=== PATIENT | male | born 1955 | race Caucasian/White ===

== ENCOUNTER 2016-04-19 16:27 | Inpatient (IN) | payer OTHER, MEDICARE ==
[~2016-04-19] VITALS: Ht 172.7 cm; Wt 115.2 kg
[~2016-04-19 16:27] MED LIST: ADVAIR 100-501 EACH INH; ADVAIR DISKU 11 UNIT INH; ALBUTEROL0.63 MG/3 INH/SOL; AMOXIL500 MG PO; ATIVAN 0.5MG T0.5 MG PO; ATIVAN1 MG PO; ATORVASTATIN CA20 MG PO; AUGMENTIN 875 M1 TAB PO; AUGMENTIN 875875 MG PO; AZITHROMYCIN500 M3 PO; CARISOPRODOL250 MG PO; CARISOPRODOL350 MG PO; DIAZEPAM10 MG PO; ESCITALOPRAM20 MG PO; FLOMAX(MONOGRA0.4 MG PO; GABAPENTIN100 MG PO; GUAIFENESIN DM120 ML PO; GUIATUSS DM PO; HYDROXYZINE HCL25 MG PO; IBUPROFEN800 M1 PO; LEVOXYL150 MCG PO; MOTRIN 600 MG600 MG PO; MULTIVITAMIN1 TA1 PO; Mucinex PO; OXYCODONE HCL15 M1 PO; OXYCODONE HCL15 MG PO; OXYCODONE HYDRO15 MG PO; PERCOCET 325 MG1 TAB PO; PREDNISONE 20MG20 MG PO; PREDNISONE10 M2 PO; PREDNISONE10 MG PO; PRILOSEC OTC20 M1 PO; ROXICODONE15 MG PO; ROXICODONE5 MG PO; ROZEREM8 M1 PO; Robitussin Dm PO; SINGULAIR10 MG PO; SPIRIVA1 PUF INH; SPIRIVA18 MCG INH; SYNTHROID0.1 MG PO; SYNTHROID0.15 MG PO; ZITHROMAX250 MG PO
--- NOTE | 2016-04-19 16:33 | NUR ---
Informed waiting has been performed. PT AWARE OF WAIT TIME.
--- NOTE | 2016-04-19 17:58 | NUR ---
PT STATES HE HAS PNEUMONIA ACCORDING TO THE CLINIC. PT WAS TOLD THAT HE NEEDED TO GET TO THE HOSPITAL AND THAT THEY FAXED HIS X-RAY RESULTS. PT IS ON 02 2L VIA HI SAT 93 AT TRIAGE
--- NOTE | 2016-04-19 18:46 | NUR ---
APPRECIATE TRIAGE NOTE. PT AMBULATORY TO ROOM 2. CHANGED INTO HOSPITAL GOWN AND PLACED ON 2L 02 VIA NC. PT NOTED TO BE SOB ON EXERTION.
--- NOTE | 2016-04-19 18:56 | ED DYSPNEA/ASTHMA COMPLAINT ---
History of Present Illness General Chief Complaint: Dyspnea (COPD, CHF, Other) Stated Complaint: SIB URGENT CARE, SOB Source: patient, old records Exam Limitations: no limitations Vital Signs & Intake/Output Vital Signs & Intake/Output Vital Signs Date Time Temp Pulse Resp B/P Pulse O2 O2 Flow FiO2 Ox Delivery Rate 04/19 1917 95 Nasal 2.0L Cannula 04/19 1847 97 Nasal 2.0L Cannula 04/19 1757 97.6 87 20 124/77 93 Nasal 2.0L Cannula Allergies Coded Allergies: No Known Allergies (11/06/15) Reconcile Medications Escitalopram Oxalate 20 MG TABLET 1 TAB PO DAILY DEPRESSION Fluticasone/Vilanterol (Breo Ellipta 100-25 Mcg INH) 100 MCG-25 MCG/DOSE BLST.W.DEV 1 PUFF INH DAILY COPD (Reported) Ibuprofen 800 MG TABLET 1 TAB PO PRN PAIN (Reported) Reason to Stop at ADM: DIFFERETN PAIN PATHWAY Levothyroxine Sodium (Levoxyl) 150 MCG TABLET 1 TAB PO DAILY THYROID ( Reported) Oxycodone HCl 15 MG TABLET 1 TAB PO Q4H PAIN (Reported) Triage Note: PT STATES HE HAS PNEUMONIA ACCORDING TO THE CLINIC. PT WAS TOLD THAT HE NEEDED TO GET TO THE HOSPITAL AND THAT THEY FAXED HIS X-RAY RESULTS. PT IS ON 02 2L VIA [place] SAT 93 AT TRIAGE Triage Nurses Notes Reviewed? yes HPI: Patient is O2 dependent COPD and presents with a 2 day history of productive cough, increasing shortness of breath subjective fevers and chills. Patient denies any chest pain or chest tightness. Positive anorexia but no nausea or vomiting. Positive dyspnea on exertion but no orthopnea. Patient states that his son was recently diagnosed with bronchitis. Patient went to a walk-in center today and they obtained a chest x-ray which showed right lower lobe pneumonia so the patient was sent in for evaluation and admission. Patient also states that both of his legs have been swelling up for the past 3 days. This is new for him. Patient states that both of his legs ache especially when he pushes on them. There is no radiation of the pain and he rates the pain is 4 out of 10. There is no redness. Past History Travel History Traveled to [place] past 21 day No Medical History Any Pertinent Medical History? 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 FATHER (unknown). Hx Contributory? No Review of Systems Review of Systems Constitutional: Reports: see HPI, chills, fever, weakness. EENTM: Reports: no symptoms. Respiratory: Reports: see HPI, cough, short of breath, sputum production, wheezing. Cardiovascular: Reports: no symptoms. GI: Reports: no symptoms. Genitourinary: Reports: no symptoms. Musculoskeletal: Reports: see HPI. Skin: Reports: no symptoms. Neurological/Psychological: Reports: no symptoms. Hematologic/Endocrine: Reports: no symptoms. Immunologic/Allergic: Reports: no symptoms. All Other Systems: Reviewed and Negative Physical Exam Physical Exam General Appearance: well developed/nourished, alert, awake, anxious, moderate distress Head: atraumatic Eyes: Bilateral: PERRL, EOMI. Ears, Nose, Throat: normal pharynx, normal ENT inspection, hearing grossly normal Neck: normal inspection, supple, NO JVD Respiratory: decreased breath sounds, wheezing, respiratory distress Cardiovascular: regular rate/rhythm, normal peripheral pulses Gastrointestinal: normal bowel sounds, soft, non-tender, no organomegaly Extremities: normal inspection, normal capillary refill, normal range of motion, pedal edema Neurologic/Psych: no motor/sensory deficits, awake, alert, oriented x 3, normal mood/affect Skin: intact, normal color, warm/dry Lymphatic: no anterior cervical pretty Comments: Patient becomes very winded with speaking. Core Measures ACS in differential dx? No Severe Sepsis Present: No Septic Shock Present: No Progress Differential Diagnosis: bronchitis, COPD, pulmonary embolism, pneumonia, pneumothorax Plan of Care: Orders Procedure Date/time Status Patient Data 04/19 2103 Active Admit to inpatient 04/19 2034 Active Add-on Test (ER Only) 04/19 2028 Active CULTURE,URINE 04/19 1957 Active Telemetry/Environmental Engineering Intern 04/19 1856 Active BLOOD CULTURE 04/19 1856 Active URINALYSIS 04/19 1856 Complete TROPONIN LEVEL 04/19 1856 Complete COMPREHENSIVE METABOLIC PANEL 04/19 1856 Complete CBC WITHOUT DIFFERENTIAL 04/19 1856 Complete EKG 04/19 1856 Active Laboratory Tests 04/19/161957: Urine Color YEL, Urine Clarity CLEAR, Urine pH 6.0, Ur Specific [place] 1.015, Urine Protein NEG, Urine Ketones NEG, Urine Nitrite NEG, Urine Bilirubin NEG, Urine Urobilinogen 0.2, Ur Leukocyte Esterase TRACE H, Ur Microscopic SEDIMENT EXAMINED, Urine RBC 1-3, Urine WBC 10-15 H, Urine Hemoglobin SMALL H, Urine Glucose NEG 04/19/161934: Anion Gap 9, Estimated GFR > 60, BUN/Creatinine Ratio 14.4, Glucose 97, Calcium 9.2, Total Bilirubin 0.8, AST 26, ALT 30, Alkaline Phosphatase 106, Troponin I < 0.01, Total Protein 7.7, Albumin 4.2, Globulin 3.5, Albumin/Globulin Ratio 1.2, CBC w Diff NO MAN DIFF REQ, RBC 5.20, MCV 87.1, MCH 28.4, RDW 14.1, MPV 7.7, Gran % 67.1, Lymphocytes % 19.0 L, Monocytes % 12.0 H, Eosinophils % 1.4, Basophils % 0.5, Absolute Granulocytes 6.3, Absolute Lymphocytes 1.8, Absolute Monocytes 1.1 H, Absolute Eosinophils 0.1, Absolute Basophils 0, PUBS MCHC 32.6 L Microbiology 04/19 1957 URINE ROUT: Urine Culture - RECD 04/19 1956 BLOOD: Blood Culture - RECD 04/19 1944 BLOOD: Blood Culture - RECD Diagnostic Imaging: Viewed by Me: Radiology Read. Discussed w/RAD: Radiology Read. Radiology Impression: PATIENT: CATALINA DOUGLAS PRESENT AGE: 60 PATIENT ACCOUNT NO: [id number] : 53 LOCATION: [facility] ORDERING PHYSICIAN: FLAVIO DUCKWORTH MD SERVICE DATE: 04/19/16 EXAM TYPE: US - US-EXT BILAT VENOUS DOPPLER EXAMINATION: US TRIPLEX LOWER EXTREMITY, BILATERAL CLINICAL INFORMATION: Bilateral lower extremity edema and pain. Shortness of breath. Coughing for 2 days. COMPARISON: None. TECHNIQUE: Color- flow triplex imaging with spectral analysis and compression Doppler were performed on the bilateral lower extremities. FINDINGS: Respiratory variation, normal compression and augmented flow are noted throughout the bilateral lower extremities. The visualized common femoral vein, superficial femoral vein, profunda femoral vein, popliteal vein and mid calf peroneal and posterior tibial venous segments show no evidence of deep venous thrombosis. There is no Fountain's cyst. IMPRESSION: Normal triplex scan without evidence of deep venous thrombosis involving the bilateral lower extremities. DICTATED BY: RENEE DUBOSE MD DATE/ TIME DICTATED:04/19/162106 JEWEL FLAT SURFACER:COSMO DATE/TIME TRANSCRIBED: 04/19/162106 CONFIDENTIAL, DO NOT COPY WITHOUT APPROPRIATE AUTHORIZATION. < Electronically signed in Other Vendor System> SIGNED BY: RENEE DUBOSE MD 2114 CXR Impression: PATIENT: CATALINA DOUGLAS PRESENT AGE: 60 PATIENT ACCOUNT NO: [id number] : 53 LOCATION: [facility] ORDERING PHYSICIAN: FLAVIO DUCKWORTH MD SERVICE DATE: 04/19/16 EXAM TYPE: RAD - XRY- PORTABLE CHEST XRAY EXAMINATION: XR PORTABLE CHEST CLINICAL INFORMATION: Pneumonia COMPARISON: Multiple prior chest x-rays most recent prior dated 2015 TECHNIQUE: Portable view of the chest was obtained. FINDINGS: Mild cardiomegaly. Low lung volumes with mild elevation of the diaphragms, right slightly greater than left. Streaky hazy opacities noted in bilateral bases suspicious for bibasilar infiltrates. Trace bilateral pleural effusion. Bony thorax is intact. IMPRESSION: Hazy streaky infiltrates or bibasilar pneumonia suspected in the proper clinical setting. DICTATED BY: RITU GARCIA MD DATE/ TIME DICTATED:04/19/161916 JEWEL FLAT SURFACER:COSMO DATE/TIME TRANSCRIBED: 04/19/161916 CONFIDENTIAL, DO NOT COPY WITHOUT APPROPRIATE AUTHORIZATION. < Electronically signed in Other Vendor System> SIGNED BY: RITU GARCIA MD 04/19/161921 Initial ED EKG: NSR, nonspecific ST T wave chg Prior EKG: unchanged Rhythm Strip: normal sinus rhythm Departure Departure Disposition: STILL A PATIENT Condition: Guarded Clinical Impression Primary Impression: Pneumonia Referrals: ADNRE MÉNDEZ,SHANNON Bolanos (PCP/Family) Departure Forms: Customer Survey General Discharge Information Admission Note Spoke With: RUSTAM RÍOS MD Documentation of Exam: Documentation of any treatments & extenuating circumstances including Concerns Regarding Discharge (functional status, medication knowledge or non-compliance, living conditions, etc.) that warrant an admission rather than observation: [IV ABX, IV STEROIDS, PULM CONSULT] Critical Care Note Critical Care Note Critical Care Time: non-applicable
--- NOTE | 2016-04-19 19:22 | RADIOLOGY REPORT ---
EXAMINATION: XR PORTABLE CHEST CLINICAL INFORMATION: Pneumonia COMPARISON: Multiple prior chest x-rays most recent prior dated 12/20/2015 TECHNIQUE: Portable view of the chest was obtained. FINDINGS: Mild cardiomegaly. Low lung volumes with mild elevation of the diaphragms, right slightly greater than left. Streaky hazy opacities noted in bilateral bases suspicious for bibasilar infiltrates. Trace bilateral pleural effusion. Bony thorax is intact. IMPRESSION: Hazy streaky infiltrates or bibasilar pneumonia suspected in the proper clinical setting.
[2016-04-19 19:52] LABS: ABSOLUTE BASOPHIL COUNT 0 /CUMM (0.0-0.2); ABSOLUTE EOSINOPHIL COUNT 0.1 /CUMM (0.0-0.7); ABSOLUTE GRANULOCYTE CT 6.3 /CUMM (1.4-6.5); ABSOLUTE LYMPH COUNT 1.8 /CUMM (1.2-3.4); ABSOLUTE MONOCYTE COUNT 1.1 /CUMM (0.10-0.60); BASOPHIL % 0.5 % (0.0-2.0); EOSINOPHIL % 1.4 % (0-5); GRANULOCYTE % 67.1 % (42.2-75.2); HEMATOCRIT 45.3 % (42-52); MEAN CORPUSCULAR HGB 28.4 PG (27.0-31.0); MEAN CORPUSCULAR HGB CONC 32.6 G/DL (33.0-37.0); MEAN CORPUSCULAR VOLUME 87.1 FL (80.0-94.0); MEAN PLATELET VOLUME 7.7 FL (7.4-10.4); PLATELET COUNT 256 /CUMM (130-400); RBC DISTRIBUTION WIDTH 14.1 % (11.5-14.5); WHITE BLOOD CELL COUNT 9.3 /CUMM (4.8-10.8)
--- NOTE | 2016-04-19 20:05 | NUR ---
LABS AND 2 SETS OF BLOOD CULTURES DRAWN AND SENT 2 SST, 2 LAV, BLUE AND REID SENT
[2016-04-19] MEDS ORDERED: BREO ELLIPTA 11 EACH INH (20:20)
--- NOTE | 2016-04-19 20:29 | NUR ---
PT TO US VIA STRETCHER.
--- NOTE | 2016-04-19 21:11 | History & Physical ---
DILAN CORDERO MD 04/19/162110: General Information and HPI MD Statement: I have seen and personally examined CATALINA DOUGLAS and documented this H&P. The patient is a 60 year old M who presented with a patient stated chief complaint of [increased shortness of breath]. Source of Information: patient Exam Limitations: no limitations History of Present Illness: 60-year-old male with PMH COPD on 2L O2, hypothyroidism, CAROLE not on CPAP, chronic pain on oxycodone, was sent in by urgent care for pneumonia on CXR. Over the last 2 days, he has had increased shortness of breath, requiring up to 5L oxygen without significant relief. He has had cough productive of thick light green sputum, and has some chest pain associated with cough. He usually uses his neb max twice a day, but over the past 2 days, had used it 4 times a day. He also reports bilateral leg swelling, and soreness, the left worse than right, which he usually gets when gets sick. His son was recently diagnosed with bronchitis. He was discharged to pulmonary rehab back in Nov 2015, and had done well up till now. His temp was 100 at home, with some chills, nasal congestion, headache, and nausea. Allergies/Medications Allergies: Coded Allergies: No Known Allergies (11/06/15) Home Med list Escitalopram Oxalate 20 MG TABLET 1 TAB PO DAILY DEPRESSION Fluticasone/Vilanterol (Breo Ellipta 100-25 Mcg INH) 100 MCG-25 MCG/DOSE BLST.W.DEV 1 PUFF INH DAILY COPD (Reported) Ibuprofen 800 MG TABLET 1 TAB PO PRN PAIN (Reported) Reason to Stop at ADM: DIFFERETN PAIN PATHWAY Levothyroxine Sodium (Levoxyl) 150 MCG TABLET 1 TAB PO DAILY THYROID ( Reported) Oxycodone HCl 15 MG TABLET 1 TAB PO Q4H PAIN (Reported) Past History Travel History Traveled to [place] past 21 day No Medical History Neurological: NONE EENT: NONE Cardiovascular: hyperlipidemia Respiratory: COPD, emphysema, obstructive sleep apnea Gastrointestinal: NONE Hepatic: NONE Renal: NONE Musculoskeletal: chronic back pain, osteoarthritis Psychiatric: anxiety, depression Endocrine: hypothyroidism, GRAVES DX s/p irradiation Blood Disorders: NONE Cancer(s): 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 FATHER (unknown). Psychosocial History Where do you live? Home Who Do You Live With? spouse, child Services at Home: None Primary Language: Vietnamese ETOH Use: denies use Illicit Drug Use: denies illicit drug use Functional Ability ADLs Independent: dressing, eating, toileting, bathing. Ambulation: independent IADLs Independent: finances, telephone, transportation, medication admin. Review of Systems Review of Systems Constitutional: Reports: chills, fever. EENTM: Reports: see HPI, nasal congestion. Cardiovascular: Reports: chest pain, peripheral edema. Respiratory: Reports: cough, short of breath, sputum production, wheezing. Denies: hemoptysis. GI: Reports: nausea. Denies: abdominal pain, bloating, constipation, diarrhea, vomiting. Genitourinary: Denies: dysuria. Musculoskeletal: Reports: joint pain. Exam & Diagnostic Data Last 24 Hrs of Vital Signs/I&O Vital Signs Date Time Temp Pulse Resp B/P Pulse O2 O2 Flow FiO2 Ox Delivery Rate 04/19 2342 98.0 96 19 128/72 93 Nasal 2.0L Cannula 04/19 2324 Nasal 2.0L Cannula 04/19 2120 98.0 97 20 123/74 95 Nasal 2.0L Cannula 04/19 1918 95 Nasal 2.0L Cannula 04/19 1848 97 Nasal 2.0L Cannula 04/19 1758 97.6 87 20 124/77 93 Nasal 2.0L Cannula Intake & Output 04/20 0800 04/20 0000 04/19 1600 Intake Total Output Total Balance Patient 115.212 kg Weight Physical Exam General Appearance Alert, Oriented X3, Cooperative, noticably short of breath talking Skin No Significant Lesion HEENT Atraumatic, PERRLA, EOMI, Mucous Membr. moist/pink, mild tenderness over frontal and maxillary sinuses Neck Supple, No JVD, +2 Carotid Pulse wo Bruit, No LAD Lymphatic Axillary nl, Cervical nl Cardiovascular Regular Rate, Normal S1, Normal S2, No Murmurs, Gallops, Rubs Lungs diffuse exp wheezes Abdomen Normal Bowel Sounds, Soft, No Tenderness Neurological Normal Speech Extremities trace pedal edema Last 24 Hrs of Labs/Miko: Laboratory Tests 01/17/17 0100: Troponin I Pending 04/19/161957: Urine Color YEL, Urine Clarity CLEAR, Urine pH 6.0, Ur Specific [place] 1.015, Urine Protein NEG, Urine Ketones NEG, Urine Nitrite NEG, Urine Bilirubin NEG, Urine Urobilinogen 0.2, Ur Leukocyte Esterase TRACE H, Ur Microscopic SEDIMENT EXAMINED, Urine RBC 1-3, Urine WBC 10-15 H, Urine Hemoglobin SMALL H, Urine Glucose NEG 04/19/161934: Anion Gap 9, Estimated GFR > 60, BUN/Creatinine Ratio 14.4, Glucose 97, Calcium 9.2, Total Bilirubin 0.8, AST 26, ALT 30, Alkaline Phosphatase 106, Troponin I < 0.01, Total Protein 7.7, Albumin 4.2, Globulin 3.5, Albumin/Globulin Ratio 1.2, CBC w Diff NO MAN DIFF REQ, RBC 5.20, MCV 87.1, MCH 28.4, RDW 14.1, MPV 7.7, Gran % 67.1, Lymphocytes % 19.0 L, Monocytes % 12.0 H, Eosinophils % 1.4, Basophils % 0.5, Absolute Granulocytes 6.3, Absolute Lymphocytes 1.8, Absolute Monocytes 1.1 H, Absolute Eosinophils 0.1, Absolute Basophils 0, PUBS MCHC 32.6 L Microbiology 04/20 99 URINE ROUT: Legionella Antigen - RECD 04/20 99 URINE ROUT: Streptococcus pneumoniae Antigen (M - RECD 04/19 2349 LOWER RESP: Respiratory Culture - ORD 04/19 2349 LOWER RESP: Gram Stain - ORD 04/19 1957 URINE ROUT: Urine Culture - RECD 04/19 1956 BLOOD: Blood Culture - RECD 04/19 1944 BLOOD: Blood Culture - RECD Diagnostic Data CXR Results IMPRESSION: Hazy streaky infiltrates or bibasilar pneumonia suspected in the proper clinical setting. Other Results Venous doppler IMPRESSION: Normal triplex scan without evidence of deep venous thrombosis involving the bilateral lower extremities. DICTATED BY: RENEE DUBOSE MD DATE/TIME DICTATED:04/19/162106 Assessment/Plan Assessment: 60-year-old male with PMH COPD on 2L O2, hypothyroidism, CAROLE not on CPAP, chronic pain on oxycodone, was sent in by urgent care for pneumonia on CXR. # Pneumonia/COPD exacerbation - Given 1 time ceftriaxone and azithromycin in ED - Given 1 time 125 mg solumedrol in ED * Continue ceftriaxone and azithromycin * Solumedrol 40 q6 * Follow BCX2, sputum culture, gram stain, urine legionella, strep pneumo * TRC/neb * Consult with Dr. Watts in am * Mucinex bid * Symbicort * 2nd set of trop and ekg 1am * f/u rapid flu # Abnormal UA with trace LE, 10-15WBC, small hb * Follow UC # Chronic pain * Continue roxicodone 15 mg q4 # Depression * Continue lexapro 20 mg # Hypothyroidism * Continue levothyroxine 150 mcg Diet: heart healthy DVT ppx: mech and pharm (lovenox) FULL CODE As Ranked By This Provider Problem List: 1. Pneumonia Core Measures/Miscellaneous Acute Coronary Syndrome ACS Diagnosis: No Cerebrovascular Accident CVA/TIA Diagnosis: No Congestive Heart Failure CHF Diagnosis: No Venous Thromboembolism VTE Risk Factors: Acute medical illness, Age > 40 VTE Prophylaxis Ordered Inpt: Mech & Pharm No Mech VTE prophylaxis d/t: No contraindications No VTE Pharm Prophylaxis d/t: No contraindications VTE Diagnosis: No VTE Type: NONE VTE Confirmed by (Test): DUPLEX SCAN LOWER EXT Severe Sepsis Severe Sepsis Present: No Septic Shock Septic Shock Present: No Miscellaneous Documentation Attending Case Discussed With: RUSTAM RÍOS MD Primary Care Physician: SHANNON POWELL MD Patient sees these Specialists 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 Was sent in by urgent care for pneumonia on CXR. Patient stated that he had greenish productive cough with shortness of breath for the past 2 days that ASSOCIATED with some chest discomfort, after he had a sick contact with his son, he stated that his son was diagnosed with bronchitis. Patient reports feeling feverish, chills, also he reports lower extremity edema. Patient deny any palpitation, abdominal pain, constipation, diarrhea, vomiting. Physical examination, lab and imaging is as above. Problem list: -Community-acquired pneumonia -COPD exacerbation -Asymptomatic bacteriuria -Lower extremity edema Plan: -Admit patient to general medicine floor -Vital every shift, I and O's -Start patient IV Solu-Medrol 40 mg every 6 -Continue IV ceftriaxone and azithromycin -Blood, urine, and sputum culture, strep and Legionella urine antigen. -1 set of troponin and EKG -TRC nebs as needed, continue home medication of Symbicort equivalent. -Pulmonology consultation a.m. -Repeat CBC and basic electrolyte in the morning -Continue home medication. -Heart healthy diet -Pain pathway -DVT prophylaxis: Subcutaneous Lovenox -Full code KHUSHBU MÉNDEZ, [facility] 04/20/16 0420: Attending MD Review Statement Attending Statement Attending MD Statement: examined this patient, discuss w/resident/PA/BUS SYSTEM OPERATOR, agreed w/resident/PA/BUS SYSTEM OPERATOR Attending Assessment/Plan: 60 yo morbidly obese M, ex-smoker with h/o COPD on 2L O2, CAROLE not using CPAP, multiple admits in 2016 for COPDE, CBP on opiates, Graves s/p RI ablation with subsequent hypothyroidism, is here for 2-day h/o dyspnea on exertion, chills, cough productive of green phlegm and chest discomfort on coughing. No relief with nebs/ inhalers and increased O2 requirement. Sick contact son with bronchitis. Patient was seen at a Walk in clinic today, CXR done showed RLL pneumonia hence he was sent to ER for eval. VSS. Chest: reduced air entry, with scattered expiratory wheeze. Labs: unremarkable. EKG: SR, nonspecific T-wave changes. CXR: hazy streaky infiltrates or bibasilar pneumonia. LE dopplers no DVT. Echo (2016): EF > 70%, elevated RVSP. 1. Acute on chronic hypoxic respiratory failure 2/2 CAP with COPDE. TRC nebs, check flu swab, panculture, IV ceftriaxone, azithro and steroids, Pulm consult. Serial EKG and troponin to rule out ACS. Add mucinex. 2. Chronic pain. Continue oxycodone. DVT ppx Lovenox. Full code.
--- NOTE | 2016-04-19 21:15 | ULTRASOUND REPORT ---
EXAMINATION: US TRIPLEX LOWER EXTREMITY, BILATERAL CLINICAL INFORMATION: Bilateral lower extremity edema and pain. Shortness of breath. Coughing for 2 days. COMPARISON: None. TECHNIQUE: Color-flow triplex imaging with spectral analysis and compression Doppler were performed on the bilateral lower extremities. FINDINGS: Respiratory variation, normal compression and augmented flow are noted throughout the bilateral lower extremities. The visualized common femoral vein, superficial femoral vein, profunda femoral vein, popliteal vein and mid calf peroneal and posterior tibial venous segments show no evidence of deep venous thrombosis. There is no Fountain's cyst. IMPRESSION: Normal triplex scan without evidence of deep venous thrombosis involving the bilateral lower extremities.
--- NOTE | 2016-04-19 22:06 | NUR ---
PT ASSIGNED TO ROOM 203-1
--- NOTE | 2016-04-19 22:32 | NUR ---
REPORT GIVEN TO NO RUSHING. [facility]RI[facility]ION CALLED FOR PT TRANSPORT.
[2016-04-19 23:42] VITALS: BP 128/72
--- NOTE | 2016-04-20 01:37 | NUR ---
NURSE NOTE(LATE ENTRY): PT ARRIVED 2244 VIA TRANSPORT FROM ED. REPORT RECIEVED FROM BALBINA IN ED. PT IS AAOX3, 2LNC BASELINE @ HOME. COMPLAINING OF PAIN IN FEET/BACK R/T OA. PAGED AND MEDICATED WITH OXYCODONE. PT IS SOB ON EXERTION, NO SIGNS OF DISTRESS. VITALS: 128/72, 98.0 TEMP, 96 PULSE, 19 RESP, AND 93% ON 2LNC. PT IS INDEPENDENT OOB, IV ACCESS. PT ORIENTATED TO ROOM. CALL TUCKER IN REACH, BED IN LOWEST POSITION.
--- NOTE | 2016-04-20 04:08 | Admission Certification ---
Admission Certification Certification Statement - As attending physician, I certify that at the time of - admission, based on clinical presentation, severity of - symptoms, need for further diagnostic testing and - therapeutic interventions, and risk of adverse outcomes - without in-hospital treatment, in my clinical assessment, - this patient requires an acute hospital stay for a minimum - of two nights or longer. I have also considered psychsocial - factors such as support system, advanced age, financial - issues, cognitive issues, and failed out-patient treatments, - past re-admission history, safety of patient, and lack of - compliance as applicable. Specific rationale supporting this admission is: Acute on chronic hypoxic respiratory failure 2/2 CAP and COPDE.
[2016-04-20 06:59] VITALS: BP 124/62
--- NOTE | 2016-04-20 07:35 | PN- Housestaff ---
See Addendum Subjective Follow-up For: CAP COPD exacerbation Asymptomatic bacteriuria Lower extremity edema Chronic pain Subjective: Patient seen and examined at bedside this AM. He continues to endorse dyspnea but feels better since admission. He denies fever or chills currently and his pain is well controlled on current regimen. Patient reports he will have his bring in his BREO as prescribed by Dr. Watts and is amenable to the discontinuation of symbicort. Review of Systems Constitutional: Denies: chills, diaphoresis, fever. EENTM: Denies: blurred vision, visual changes, hearing changes, throat pain, mouth pain. Cardiovascular: Reports: peripheral edema (LLE, chronic). Denies: chest pain, palpitations. Respiratory: Reports: cough, short of breath, sputum production (Mild, light yellow/white), wheezing. Denies: hemoptysis. Gastrointestinal: Denies: abdominal pain, bloating, constipation. Genitourinary: Denies: discharge, dysuria, frequency, hesitation, pain. Musculoskeletal: Reports: back pain (Chronic back pain). Skin: Denies: lesions. Neurological/Psychological: Denies: confusion, headache. Hematologic/Endocrine: Denies: bruising, bleeding. Immunologic/Allergic: Denies: splenectomy. Objective Last 24 Hrs of Vital Signs/I&O Vital Signs Date Time Temp Pulse Resp B/P Pulse O2 O2 Flow FiO2 Ox Delivery Rate 04/20 1122 Nasal 2.0L Cannula 04/20 0659 97.7 105 18 124/62 91 Nasal 2.0L Cannula 04/19 2342 98.0 96 19 128/72 93 Nasal 2.0L Cannula 04/19 2324 Nasal 2.0L Cannula 04/19 2120 98.0 97 20 123/74 95 Nasal 2.0L Cannula 04/19 1918 95 Nasal 2.0L Cannula 04/19 1848 97 Nasal 2.0L Cannula 04/19 1758 97.6 87 20 124/77 93 Nasal 2.0L Cannula Intake & Output 04/20 1600 04/20 0800 04/20 0000 Intake Total 500 Output Total Balance 500 Intake, IV 20 Intake, Oral 480 Patient 254 lb Weight Physical Exam General Appearance: Alert, Oriented X3, Cooperative Skin: No Significant Lesion HEENT: Atraumatic, PERRLA, EOMI, Mucous Membr. moist/pink Neck: Supple, No JVD, No LAD Lymphatic: Cervical nl Cardiovascular: Normal S1, Normal S2 Lungs: Normal Air Movement, Expiratory wheezing appreciated bilaterally, decreased breath sounds at the bases Abdomen: Soft, No Tenderness Neurological: Normal Speech, Normal Tone Extremities: Left lower extremity edema for which patient reports is chronic. Current Medications: Current Medications Sig/Leon Start time Last Medication Dose Route Stop Time Status Admin Acetaminophen 650 MG Q6P PRN 04/19 2245 AC 04/20 PO 1238 Albuterol Sulfate 3 ML BID 04/20 2199 AC INH Albuterol Sulfate 3 ML ONCE ONE 04/19 190 DC 04/19 INH 04/19 1900 191 Alprazolam 0.5 MG ONCE ONE 04/20 0245 DC 04/20 PO 04/20 024 0256 Azithromycin 500 MG 04/20 AC Dextrose/Water 250 ML IV Azithromycin 500 MG ONCE ONE 04/19 1899 DC 04/19 Dextrose/Water 250 ML IV 04/19 Budesonide/ 2 PUF BID 04/20 1000 DC 04/20 Formoterol Fumarate INH 08 Ceftriaxone Sodium 1,000 MG 04/20 AC IV Ceftriaxone Sodium 0 .STK-MED ONE 04/19 194 DC .ROUTE Ceftriaxone Sodium 1,000 MG ONCE ONE 04/19 190 DC 04/19 IV 04/19 Enoxaparin Sodium 40 MG DAILY 04/20 1000 AC 04/20 SC 0822 Escitalopram Oxalate 10 MG DAILY 04/20 1000 DC PO Escitalopram Oxalate 20 MG DAILY 04/20 1000 AC 04/20 PO 0821 Escitalopram Oxalate 20 MG ONCE ONE 04/19 2330 DC 04/20 PO 04/19 2331 0043 Guaifenesin 600 MG Q12 04/20 0137 AC 04/20 PO 0821 Ibuprofen 600 MG Q6P PRN 04/19 2245 DC PO Ipratropium [place] 2.5 ML ONCE ONE 04/19 190 DC 04/19 INH 04/19 190 191 Levothyroxine Sodium 0.15 MG DAILY AC 04/20 0700 AC 04/20 PO 0524 Melatonin 5 MG ONCE ONE 04/20 0100 DC 04/20 PO 04/20 0101 0106 Methylprednisolone 40 MG Q12 04/20 2200 AC IV Methylprednisolone 40 MG Q6 04/20 0600 DC 04/20 IV 1238 Methylprednisolone 0 .STK-MED ONE 04/19 1950 DC .ROUTE Methylprednisolone 125 MG ONCE ONE 04/19 1899 DC 04/19 IV 04/19 Non-Formulary 0 SEE ADMIN CRITERIA 04/20 1345 AC Medication ANY Oxycodone HCl 15 MG Q4 HRS NEEDED PRN 04/19 2345 AC 04/20 PO 0822 Oxycodone HCl 15 MG Q4-6 PRN PRN 04/19 2330 CAN PO Last 24 Hrs of Lab/Miko Results Last 24 Hrs of Labs/Mics: Laboratory Tests 04/20/16 0858: Anion Gap 11, Estimated GFR > 60, BUN/Creatinine Ratio 17.8 04/20/16 0605: CBC w Diff NO MAN DIFF REQ, RBC 4.94, MCV 87.9, MCH 29.0, RDW 13.9, MPV 8.5, Gran % 88.8 H, Lymphocytes % 10.7 L, Monocytes % 0.5 L, Eosinophils % 0, Basophils % 0 L, Absolute Granulocytes 5.2, Absolute Lymphocytes 0.6 L, Absolute Monocytes 0 L, Absolute Eosinophils 0, Absolute Basophils 0, PUBS MCHC 32.9 L 04/20/16 0100: Troponin I < 0.01 04/19/161957: Urine Color YEL, Urine Clarity CLEAR, Urine pH 6.0, Ur Specific [place] 1.015, Urine Protein NEG, Urine Ketones NEG, Urine Nitrite NEG, Urine Bilirubin NEG, Urine Urobilinogen 0.2, Ur Leukocyte Esterase TRACE H, Ur Microscopic SEDIMENT EXAMINED, Urine RBC 1-3, Urine WBC 10-15 H, Urine Hemoglobin SMALL H, Urine Glucose NEG 04/19/16 193: Anion Gap 9, Estimated GFR > 60, BUN/Creatinine Ratio 14.4, Glucose 97, Calcium 9.2, Total Bilirubin 0.8, AST 26, ALT 30, Alkaline Phosphatase 106, Troponin I < 0.01, Total Protein 7.7, Albumin 4.2, Globulin 3.5, Albumin/Globulin Ratio 1.2, CBC w Diff NO MAN DIFF REQ, RBC 5.20, MCV 87.1, MCH 28.4, RDW 14.1, MPV 7.7, Gran % 67.1, Lymphocytes % 19.0 L, Monocytes % 12.0 H, Eosinophils % 1.4, Basophils % 0.5, Absolute Granulocytes 6.3, Absolute Lymphocytes 1.8, Absolute Monocytes 1.1 H, Absolute Eosinophils 0.1, Absolute Basophils 0, PUBS MCHC 32.6 L Microbiology 04/20 1300 LOWER RESP: Respiratory Culture - RECD 04/20 1300 LOWER RESP: Gram Stain - RECD 04/20 99 URINE ROUT: Legionella Antigen - COMP 04/20 99 URINE ROUT: Streptococcus pneumoniae Antigen (M - COMP 04/19 1957 URINE ROUT: Urine Culture - RES 04/19 1956 BLOOD: Blood Culture - RES 04/19 1944 BLOOD: Blood Culture - RES Orders Radiology Findings: CXR: IMPRESSION: Hazy streaky infiltrates or bibasilar pneumonia suspected in the proper clinical setting. Miscellaneous Findings: Venous Doppler: IMPRESSION: Normal triplex scan without evidence of deep venous thrombosis involving the bilateral lower extremities. Assessment/Plan Assessment: Mr. Thomas is a pleasant 60 year old male with significant PMH of COPD on 2 L home O2 followed by Dr. Watts, CAROLE not on CPAP, graves disease s/p irradiation with resultant hypothyroidism, chronic back pain on oxycodone, HTN and anxiety who presents with increasing shortness of breath and increased O2 requirements from 2L to 5L as his O2 saturation dropped to 89%. Associated symptoms include increased yellow sputum production, cough with occasional chest discomfort, nasal congestion, occasional headache and nausea. In the ED: Vital signs showed T 97.6, HR 87, RR 20, BP 124/77 and 93% on 2 L NC. CXR was done and showed hazy streaky infiltrates or bibasilar PNA. EKG showed normal sinus rhythm with non specific ST/T wave changes, unchanged from prior. CBC was WNL (specifically WBC 9.3) and BEP showed Na 136, Cl 97 with no other abnormalities. Troponins negative x 2. Patient was admitted to the general medicine floor and the following is the management: 1. Community acquired PNA/ COPD exacerbation/ Chronic respiratory failure * Patient maintained on 2 L O2 via NC currently, increase as needed to maintain sats >92% * TRC nebs as needed * Continue IV ceftraixone and azithromycin, await panculture results (LRC, blood cultures, urine cultures) * Legionella and strep urinary antigens negative * Consult with Dr. Watts placed and appreciated, who suggested discontinuing symbicort and starting BREO (home medication which patient's is bringing in today) * IV solumedrol decreased to 40 mg IV Q12, while on steroids monitor gluocse with FSGs TIDAC/HS * Flu swab negative * Mucinex for congestion * ACS ruled out with troponins negative x 2 * Patient declines PAP for CAROLE 2. Abnormal US * UA noted to have trace leuk esterase, 10-15 WBC, small Hgb * Follow up urine culture, no growth to date * Patient remains asymptomatic 3. Chronic low back pain * Continue roxicodone 15 mg q4PRN for severe pain * Ibuprofen 600 mg Q6P for moderate pain, tylenol for mild pain 4. Depression * Continue lexapro 20 mg PO daily * Patient not actively suicidal/homical with appropriate mood 5. Hypothyroidism * Continue 0.15 mg PO daily synthroid FULL CODE DVTP: Lovenox Heart Healthy Diet Chronic pain pathways Problem List: 1. DVT prophylaxis 2. COPD exacerbation 3. Chronic back pain 4. Hypothyroidism 5. Pneumonia Pain Ratin Pain Location: Chronic back pain. Pain Goal: Pain 4 or less Pain Plan: Tylenol for mild pain, Roxicodone for severe pain. Tomorrow's Labs & Rationales: CBC (monitor WBC).
[2016-04-20 07:59] LABS: ABSOLUTE BASOPHIL COUNT 0 /CUMM (0.0-0.2); ABSOLUTE EOSINOPHIL COUNT 0 /CUMM (0.0-0.7); ABSOLUTE GRANULOCYTE CT 5.2 /CUMM (1.4-6.5); ABSOLUTE LYMPH COUNT 0.6 /CUMM (1.2-3.4); ABSOLUTE MONOCYTE COUNT 0 /CUMM (0.10-0.60); BASOPHIL % 0 % (0.0-2.0); EOSINOPHIL % 0 % (0-5); GRANULOCYTE % 88.8 % (42.2-75.2); HEMATOCRIT 43.4 % (42-52); MEAN CORPUSCULAR HGB CONC 32.9 G/DL (33.0-37.0); MEAN CORPUSCULAR VOLUME 87.9 FL (80.0-94.0); MEAN PLATELET VOLUME 8.5 FL (7.4-10.4); PLATELET COUNT 256 /CUMM (130-400); RBC DISTRIBUTION WIDTH 13.9 % (11.5-14.5); RED BLOOD CELL CT 4.94 /CUMM (4.70-6.10)
[2016-04-20 09:33] LABS: WHITE BLOOD CELL COUNT 5.9 /CUMM (4.8-10.8)
--- NOTE | 2016-04-20 12:12 | Cons- Pulmonary ---
General Information and HPI Consulting Request Date of Consult: 04/20/16 Requested By: Dr. Mathews Reason for Consult: copd exacerbaiton, possible cap Source of Information: patient Exam Limitations: no limitations History of Present Illness: 60 year old man. Consultation requested for COPD/CAROLE and possible CAP. Significant PMH graves disease, s/p irradiation with subsequent hypothyroidism, HTN, OA with chronic back pain, HTN, anxiety and COPD on BREO with rinsing of the mouth. Former smoker, 30 pack years; quit 20 years ago. He uses 2 L of oxygen via nasal cannula at home. Dx with CAROLE, however declines to use CPAP understanding the cardiovascular risk factors. CXR - Hazy streaky infiltrates or bibasilar pneumonia suspected in the proper clinical setting. Fevers/Chills at home. Currently afebrile, no leukocytosis, at baseline 2LNC. Feels better since admisison. Maintained on ceftriaxone/zithromax, minimal phlegm. On Solumedrol 40mg iv q6h Allergies/Medications Allergies: Coded Allergies: No Known Allergies (11/06/15) Home Med List: Escitalopram Oxalate 20 MG TABLET 1 TAB PO DAILY DEPRESSION Fluticasone/Vilanterol (Breo Ellipta 100-25 Mcg INH) 100 MCG-25 MCG/DOSE BLST.W.DEV 1 PUFF INH DAILY COPD (Reported) Ibuprofen 800 MG TABLET 1 TAB PO PRN PAIN (Reported) Reason to Stop at ADM: DIFFERETN PAIN PATHWAY Levothyroxine Sodium (Levoxyl) 150 MCG TABLET 1 TAB PO DAILY THYROID ( Reported) Oxycodone HCl 15 MG TABLET 1 TAB PO Q4H PAIN (Reported) Current Medications: Current Medications Sig/Leon Start time Last Medication Dose Route Stop Time Status Admin Acetaminophen 650 MG Q6P PRN 04/19 2245 AC PO Albuterol Sulfate 3 ML BID 04/20 2200 AC INH Albuterol Sulfate 3 ML ONCE ONE 04/19 1900 DC 04/19 INH 04/19 190 1910 Alprazolam 0.5 MG ONCE ONE 04/20 0245 DC 04/20 PO 04/20 0246 0256 Azithromycin 500 MG 2000 04/20 1999 AC Dextrose/Water 250 ML IV Azithromycin 500 MG ONCE ONE 04/19 1900 DC 04/19 Dextrose/Water 250 ML IV 04/19 Budesonide/ 2 PUF BID 04/20 1000 AC 04/20 Formoterol Fumarate INH 08 Ceftriaxone Sodium 1,000 MG 2000 04/20 2000 AC IV Ceftriaxone Sodium 0 .STK-MED ONE 04/19 1949 DC .ROUTE Ceftriaxone Sodium 1,000 MG ONCE ONE 04/19 1900 DC 04/19 IV 04/19 190 2002 Enoxaparin Sodium 40 MG DAILY 04/20 1000 AC 04/20 SC 0822 Escitalopram Oxalate 10 MG DAILY 04/20 1000 DC PO Escitalopram Oxalate 20 MG DAILY 04/20 1000 AC 04/20 PO 0821 Escitalopram Oxalate 20 MG ONCE ONE 04/19 2330 DC 04/20 PO 04/19 2331 0043 Guaifenesin 600 MG Q12 04/20 0137 AC 04/20 PO 0821 Ibuprofen 600 MG Q6P PRN 04/19 2245 DC PO Ipratropium [place] 2.5 ML ONCE ONE 04/19 1900 DC 04/19 INH 04/19 1901 1910 Levothyroxine Sodium 0.15 MG DAILY AC 04/20 0700 AC 04/20 PO 0524 Melatonin 5 MG ONCE ONE 04/20 0100 DC 04/20 PO 04/20 0101 0106 Methylprednisolone 40 MG Q6 04/20 0600 AC 04/20 IV 0524 Methylprednisolone 0 .STK-MED ONE 04/19 1950 DC .ROUTE Methylprednisolone 125 MG ONCE ONE 04/19 1900 DC 04/19 IV 04/19 1900 2002 Oxycodone HCl 15 MG Q4 HRS NEEDED PRN 04/19 2345 AC 04/20 PO 0822 Oxycodone HCl 15 MG Q4-6 PRN PRN 04/19 2330 CAN PO Review of Systems Comments 18 point Review of Systems performed. Positive and negative pertinent findings are deliniated in the HPI. Otherwise the ROS is negative. 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 FATHER (unknown). Psychosocial History Where Do You Live? Home Who Do You Live With? spouse, child Services at Home: None Primary Language: [place] Smoking Status: Former Smoker ETOH Use: denies use Illicit Drug Use: denies illicit drug use Functional Ability ADLs Independent: dressing, eating, toileting, bathing. Ambulation: independent IADLs Independent: finances, telephone, transportation, medication admin. Exam & Diagnostic Data Last 24 Hrs of Vital Signs/I&O Vital Signs Date Time Temp Pulse Resp B/P Pulse O2 O2 Flow FiO2 Ox Delivery Rate 04/20 1122 Nasal 2.0L Cannula 04/20 0659 97.7 105 18 124/62 91 Nasal 2.0L Cannula 04/19 2342 98.0 96 19 128/72 93 Nasal 2.0L Cannula 04/19 2324 Nasal 2.0L Cannula 04/19 2120 98.0 97 20 123/74 95 Nasal 2.0L Cannula 04/19 1918 95 Nasal 2.0L Cannula 04/19 1848 97 Nasal 2.0L Cannula 04/19 1758 97.6 87 20 124/77 93 Nasal 2.0L Cannula Intake & Output 04/20 1600 04/20 0800 04/20 0000 Intake Total 500 Output Total Balance 500 Intake, IV 20 Intake, Oral 480 Patient 254 lb Weight Physical Exam Other Physical Findings: General - Alert, awake and oriented HEENT - normocephalic, atraumatic Cardiovascular - S1, S2 Lungs - bilateral wheezing Abdomen - soft, bowel sounds positive, no tenderness Extremities - without edema or cyanosis Last 48 Hrs of Labs/Miko: Laboratory Tests 04/20/16 0858: Anion Gap 11, Estimated GFR > 60, BUN/Creatinine Ratio 17.8 04/20/16 0605: CBC w Diff NO MAN DIFF REQ, RBC 4.94, MCV 87.9, MCH 29.0, RDW 13.9, MPV 8.5, Gran % 88.8 H, Lymphocytes % 10.7 L, Monocytes % 0.5 L, Eosinophils % 0, Basophils % 0 L, Absolute Granulocytes 5.2, Absolute Lymphocytes 0.6 L, Absolute Monocytes 0 L, Absolute Eosinophils 0, Absolute Basophils 0, PUBS MCHC 32.9 L 04/20/16 0100: Troponin I < 0.01 04/19/16 1958: Urine Color YEL, Urine Clarity CLEAR, Urine pH 6.0, Ur Specific [place] 1.015, Urine Protein NEG, Urine Ketones NEG, Urine Nitrite NEG, Urine Bilirubin NEG, Urine Urobilinogen 0.2, Ur Leukocyte Esterase TRACE H, Ur Microscopic SEDIMENT EXAMINED, Urine RBC 1-3, Urine WBC 10-15 H, Urine Hemoglobin SMALL H, Urine Glucose NEG 04/19/161934: Anion Gap 9, Estimated GFR > 60, BUN/Creatinine Ratio 14.4, Glucose 97, Calcium 9.2, Total Bilirubin 0.8, AST 26, ALT 30, Alkaline Phosphatase 106, Troponin I < 0.01, Total Protein 7.7, Albumin 4.2, Globulin 3.5, Albumin/Globulin Ratio 1.2, CBC w Diff NO MAN DIFF REQ, RBC 5.20, MCV 87.1, MCH 28.4, RDW 14.1, MPV 7.7, Gran % 67.1, Lymphocytes % 19.0 L, Monocytes % 12.0 H, Eosinophils % 1.4, Basophils % 0.5, Absolute Granulocytes 6.3, Absolute Lymphocytes 1.8, Absolute Monocytes 1.1 H, Absolute Eosinophils 0.1, Absolute Basophils 0, PUBS MCHC 32.6 L Microbiology 04/20 99 URINE ROUT: Legionella Antigen - COMP 04/20 99 URINE ROUT: Streptococcus pneumoniae Antigen (M - COMP Assessment/Plan Impression/Plan: 60 year old man. Consultation requested for COPD/CAROLE and possible CAP. Significant PMH graves disease, s/p irradiation with subsequent hypothyroidism, HTN, OA with chronic back pain, HTN, anxiety and COPD on BREO with rinsing of the mouth. Former smoker, 30 pack years; quit 20 years ago. He uses 2 L of oxygen via nasal cannula at home. Dx with CAROLE, however declines to use CPAP understanding the cardiovascular risk factors. CXR - Hazy streaky infiltrates or bibasilar pneumonia suspected in the proper clinical setting. Fevers/Chills at home. Currently afebrile, no leukocytosis, at baseline 2LNC. Feels better since admisison. Maintained on ceftriaxone/zithromax, minimal phlegm. On Solumedrol 40mg iv q6h Plan - decrease Solumedrol to 40mg iv q12h - monitor finger sticks - d/c symbicort - (uses BREO at home) can bring own meds - declines PAP therapy - TRC/Nebs - spo2 goal >92% - mucinex - dvt prophylaxis at all times Consult Acknowledgment - Thank you for your consult request.
[2016-04-20 16:09] VITALS: BP 122/70
[2016-04-20 23:59] VITALS: BP 118/74
[2016-04-21 06:00] VITALS: BP 118/74
--- NOTE | 2016-04-21 06:51 | PN- Housestaff ---
DILLON MÉNDEZ,FIOR 04/21/16 0650: Subjective Follow-up For: COPD exacerbation Subjective: Patient seen and examined at bedside this AM. He reports worsening of his sputum production with dyspnea prominent throughout the night. Review of Systems Constitutional: Denies: chills, fever. EENTM: Denies: visual changes, hearing changes, throat pain. Cardiovascular: Denies: chest pain. Respiratory: Reports: short of breath, sputum production, wheezing. Gastrointestinal: Denies: abdominal pain, constipation. Genitourinary: Denies: dysuria. Skin: Denies: change in skin color, change in hair/nails. Neurological/Psychological: Reports: anxiety (From steroids). Hematologic/Endocrine: Denies: bruising, bleeding. Objective Last 24 Hrs of Vital Signs/I&O Vital Signs Date Time Temp Pulse Resp B/P Pulse O2 O2 Flow FiO2 Ox Delivery Rate 04/21 1610 97.4 113 22 112/80 96 Nasal 2.0L Cannula 04/21 1016 92 Nasal 2.0L Cannula 04/21 0801 97.7 88 18 142/70 91 Nasal 2.0L Cannula 04/21 0800 95 Nasal 2.0L Cannula 04/21 0600 98.1 101 20 118/74 92 Nasal 2.0L Cannula 04/21 0000 92 Nasal 2.0L Cannula 04/20 2359 98.1 101 20 118/74 91 Room Air 04/20 1924 91 Nasal 2.0L Cannula Intake & Output 04/21 1600 04/21 0800 04/21 0000 Intake Total 940 670 770 Output Total Balance 940 670 770 Intake, IV 40 150 250 Intake, Oral 900 520 520 Number 1 0 0 Bowel Movements Physical Exam General Appearance: Alert, Oriented X3, Cooperative, Mild Distress Skin: No Significant Lesion HEENT: Atraumatic, Mucous Membr. moist/pink Neck: Supple, No JVD Lymphatic: Cervical nl Cardiovascular: Normal S1, Normal S2 Lungs: Decreased air entry bilaterally with wheeze Abdomen: Normal Bowel Sounds, Soft Neurological: Normal Gait, Normal Speech, Normal Tone Extremities: No Clubbing, No Cyanosis Vascular: Pulses Symmetrical Current Medications: Current Medications Sig/Leon Start time Last Medication Dose Route Stop Time Status Admin Acetaminophen 650 MG Q6P PRN 04/19 2245 AC 04/20 PO 1238 Albuterol Sulfate 3 ML BID 04/20 2200 AC 04/21 INH 1000 Alprazolam 0.5 MG ONCE ONE 04/21 1300 DC 04/21 PO 04/21 1301 1304 Azithromycin 500 MG 04/20 DC 04/20 Dextrose/Water 250 ML IV 2053 Benzonatate 100 MG ONCE ONE 04/21 0300 DC 04/21 PO 04/21 0301 0300 Ceftriaxone Sodium 1,000 MG 04/20 2000 DC 04/20 IV 2052 Enoxaparin Sodium 40 MG DAILY 04/20 1000 AC 04/21 SC 0934 Escitalopram Oxalate 20 MG DAILY 04/20 1000 AC 04/21 PO 0934 Guaifenesin 600 MG Q12 04/20 0137 AC 04/21 PO 0934 Levothyroxine Sodium 0.15 MG DAILY AC 04/20 0700 AC 04/21 PO 0642 Melatonin 5 MG ONCE ONE 04/21 0300 DC 04/21 PO 04/21 0301 0305 Methylprednisolone 40 MG Q12 04/20 2200 AC 04/21 IV 04/22 0800 0934 Non-Formulary 0 SEE ADMIN CRITERIA 04/20 1345 DC Medication ANY Oxycodone HCl 15 MG Q4 HRS NEEDED PRN 04/19 2345 AC 04/21 PO 0740 Patient Medication 1 ED .STK-MED ONE 04/21 1407 ID Teaching ED 04/21 1408 Patient Medication 1 ED .STK-MED ONE 04/21 1357 ID Teaching ED 04/21 1358 Patient Own 1 UNIT DAILY 04/21 1000 AC 04/21 Medication PO 0935 Prednisone 60 MG DAILY 04/22 1000 AC PO Orders ECHO Findings: IMPRESSION: Normal triplex scan without evidence of deep venous thrombosis involving the bilateral lower extremities. Radiology Findings: CXR: IMPRESSION: Hazy streaky infiltrates or bibasilar pneumonia suspected in the proper clinical setting. Miscellaneous Findings: Venous doppler: Assessment/Plan Assessment: Mr. Thomas is a pleasant 60 year old male with significant PMH of COPD on 2 L home O2 followed by Dr. Watts, CAROLE not on CPAP, graves disease s/p irradiation with resultant hypothyroidism, chronic back pain on oxycodone, HTN and anxiety who presents with increasing shortness of breath and increased O2 requirements from 2L to 5L as his O2 saturation dropped to 89%. Associated symptoms include increased yellow sputum production, cough with occasional chest discomfort, nasal congestion, occasional headache and nausea. In the ED: Vital signs showed T 97.6, HR 87, RR 20, BP 124/77 and 93% on 2 L NC. CXR was done and showed hazy streaky infiltrates or bibasilar PNA. EKG showed normal sinus rhythm with non specific ST/T wave changes, unchanged from prior. CBC was WNL (specifically WBC 9.3) and BEP showed Na 136, Cl 97 with no other abnormalities. Troponins negative x 2. Patient was admitted to the general medicine floor and the following is the management: 1. COPD exacerbation/ Chronic respiratory failure * Patient maintained on 2 L O2 via NC currently, increase as needed to maintain sats >92% * TRC nebs as needed * IV antibiotics discontinued on recommendation from ID as patient has no white count, fever and CXR only mildly impressive. * Await panculture results (LRC, blood cultures, urine cultures) * Legionella and strep urinary antigens negative * Consult with Dr. Mac benitez and appreciated, who suggests continuing BREO ( home medication) * IV solumedrol continued as 40 mg IV Q12, will switch to 60 mg PO prednisone tomorrow * Flu swab negative * Mucinex for congestion * ACS ruled out with troponins negative x 2 * Patient declines PAP for CAROLE 2. Abnormal US * UA noted to have trace leuk esterase, 10-15 WBC, small Hgb * Urine culture shows no growth (final) * Patient remains asymptomatic 3. Chronic low back pain * Continue roxicodone 15 mg q4PRN for severe pain * Ibuprofen 600 mg Q6P for moderate pain, tylenol for mild pain 4. Depression * Continue lexapro 20 mg PO daily * Patient not actively suicidal/homical with appropriate mood 5. Hypothyroidism * Continue 0.15 mg PO daily synthroid FULL CODE DVTP: Lovenox Heart Healthy Diet Chronic pain pathways Problem List: 1. COPD with acute exacerbation 2. Hypoxia 3. Anxiety 4. DVT prophylaxis 5. Patient is full code 6. Chronic back pain Pain Ratin Pain Location: Low back Pain Goal: Pain 4 or less Pain Plan: Roxicodone 15 mg PO Q4H PRN for severe pain, tylenol for mild pain. Tomorrow's Labs & Rationales: None. EVERARDO GRIFFIN MD 04/21/16 1520: Attending MD Review Statement Attending Statement Attending MD Statement: examined this patient, discuss w/resident/PA/ASSOCIATE JUSTICE, agreed w/resident/PA/ASSOCIATE JUSTICE, reviewed EMR data (avail), discussed with nursing, discussed with case mgmt, amended to note Attending Assessment/Plan: Patient seen and examined. No issues overnight. He remains afebrile hemodynamically stable. He however complains of increased malaise today. He reports increased cough productive of very brown sputum. Reports shortness of breath with exertion. On examination he has mild diffuse wheezing bilaterally. He remains on his baseline O2 supplementation. Recommendations: -Continue bronchodilator therapy and systemic steroid therapy. -Follow-up with the pulmonary service if patient to continue on antibiotic therapy for presumed pneumonia. -Continue oxygen supplementation as tolerated. -Anticipate discharge in the next 24-48 hours depending on his clinical course.
[2016-04-21 08:01] VITALS: BP 142/70
--- NOTE | 2016-04-21 08:11 | NUR ---
NURSING NOTE; PTS HOME MED INHALER BREO BROUGHT TO PHARMACY, PTS BROUGHT IT IN LAST NIGHT, PT STATES "I DONT HAVE THE PRESCRIPTION BOX IT CAME IN ANYMORE" RENE FROM PHARMACY TO CONTACT HIS PHARMACY BEFORE VERIFING HIS HOME MED. PT UPDATED, CONT TO MONITOR.
--- NOTE | 2016-04-21 10:12 | PN- Pulmonary ---
Subjective HPI/Critical Care Issues: Patient seen and examined. No chest pain, dyspnea improved and wheezing is improved. No nausea, vomiting, diarrhea or constipation. Afebrile and hemodynamically stable. Objective Current Medications: Current Medications Sig/Leon Start time Last Medication Dose Route Stop Time Status Admin Acetaminophen 650 MG .STK-MED ONE 04/20 1233 DC PO 04/20 1234 Acetaminophen 650 MG .STK-MED ONE 04/20 1039 DC PO 04/20 1040 Acetaminophen 650 MG Q6P PRN 04/19 2245 AC 04/20 PO 1238 Albuterol Sulfate 3 ML BID 04/20 2200 AC 04/21 INH 1000 Azithromycin 500 MG 04/20 AC 04/20 Dextrose/Water 250 ML IV 2053 Benzonatate 100 MG ONCE ONE 04/21 0300 DC 04/21 PO 04/21 0301 0300 Budesonide/ 2 PUF BID 04/20 1000 DC 04/20 Formoterol Fumarate INH 0822 Ceftriaxone Sodium 1,000 MG 04/20 AC 04/20 IV 2052 Enoxaparin Sodium 40 MG DAILY 04/20 1000 AC 04/21 SC 0934 Escitalopram Oxalate 20 MG DAILY 04/20 1000 AC 04/21 PO 0934 Guaifenesin 600 MG Q12 04/20 0137 AC 04/21 PO 0934 Levothyroxine Sodium 0.15 MG DAILY AC 04/20 0700 AC 04/21 PO 0642 Melatonin 5 MG ONCE ONE 04/21 0300 DC 04/21 PO 04/21 0301 0305 Methylprednisolone 40 MG Q12 04/20 2200 04/21 IV 0934 Methylprednisolone 40 MG Q6 04/20 0600 MA 04/20 IV 1238 Non-Formulary 0 SEE ADMIN CRITERIA 04/20 1345 DC Medication ANY Oxycodone HCl 15 MG Q4 HRS NEEDED PRN 04/19 2345 AC 04/21 PO 0740 Patient Own 1 UNIT DAILY 04/21 1000 AC 04/21 Medication PO 0935 Vital Signs & I&O Last 24 Hrs of Vitals and I&O: Vital Signs Date Time Temp Pulse Resp B/P Pulse O2 O2 Flow FiO2 Ox Delivery Rate 04/21 0801 97.7 88 18 142/70 91 Nasal 2.0L Cannula 04/21 0600 98.1 101 20 118/74 92 Nasal 2.0L Cannula 04/21 0000 92 Nasal 2.0L Cannula 04/20 2359 98.1 101 20 118/74 91 Room Air 04/20 1924 91 Nasal 2.0L Cannula 04/20 1609 97.6 106 20 122/70 90 Nasal 2.0L Cannula 04/20 1600 91 Nasal 2.0L Cannula 04/20 1122 Nasal 2.0L Cannula Intake & Output 04/21 1600 04/21 0800 04/21 0000 Intake Total 670 770 Output Total Balance 670 770 Intake, IV 150 250 Intake, Oral 520 520 Number 0 0 Bowel Movements Exam Other Physical Findings: General - Alert, awake and oriented HEENT - normocephalic, atraumatic Cardiovascular - S1, S2 Lungs - bilateral wheezing Abdomen - soft, bowel sounds positive, no tenderness Extremities - without edema or cyanosis Impression/Plan Impression/Plan Impression/Plan: 60 year old man. Consultation requested for COPD/CAROLE and possible CAP. Significant PMH graves disease, s/p irradiation with subsequent hypothyroidism, HTN, OA with chronic back pain, HTN, anxiety and COPD on BREO with rinsing of the mouth. Former smoker, 30 pack years; quit 20 years ago. He uses 2 L of oxygen via nasal cannula at home. Dx with CAROLE, however declines to use CPAP understanding the cardiovascular risk factors. CXR - Hazy streaky infiltrates or bibasilar pneumonia suspected in the proper clinical setting. Plan -Continue Solumedrol to 40mg iv q12h, plan for by mouth prednisone tomorrow starting at 60 mg - monitor finger sticks - d/c symbicort - (uses BREO at home) can bring own meds - declines PAP therapy - TRC/Nebs - spo2 goal >92% - mucinex - dvt prophylaxis at all times
--- NOTE | 2016-04-21 13:05 | NUR ---
NURSING NOTE: PT C/O ANXIETY. PT STATES "I FEEL SHAKY AND JITTERY FROM THE STEROIDS" EQUAL OPPORTUNITY DIRECTOR 133 CALLED AND AWARE, ONE TIME XANAX GIVEN PER MD ORDER
--- NOTE | 2016-04-21 13:51 | NUR ---
NURSING NOTE: PT DENIES ANY COMPLAINTS AT THIS TIME, CONT TO MONITOR.
[2016-04-21 16:10] VITALS: BP 112/80
[2016-04-22] VITALS: BP 140/66
--- NOTE | 2016-04-22 06:50 | PN- Housestaff ---
See Addendum Subjective Follow-up For: COPD exacerbation Subjective: Patient seen and examined at bedside this AM. He is requesting that a mole on his lower back be observed as well as flomax be restarted. He otherwise offers no complaints and his respiratory status showed mild improvement from yesterday. Review of Systems Constitutional: Denies: chills, fever. EENTM: Denies: blurred vision, visual changes, nasal congestion, throat pain. Cardiovascular: Denies: chest pain, palpitations. Respiratory: Reports: cough, short of breath, sputum production, wheezing. Gastrointestinal: Denies: abdominal pain, constipation, diarrhea. Musculoskeletal: Denies: back pain. Skin: Reports: moles (Lower back, right). Neurological/Psychological: Denies: ataxia, confusion, headache, numbness. Hematologic/Endocrine: Denies: bruising, bleeding. Immunologic/Allergic: Denies: splenectomy. Objective Last 24 Hrs of Vital Signs/I&O Vital Signs Date Time Temp Pulse Resp B/P Pulse O2 O2 Flow FiO2 Ox Delivery Rate 04/22 1253 90 136/78 04/22 1051 92 Nasal 2.0L Cannula 04/22 0850 94 140/80 04/22 0800 92 Nasal 2.0L Cannula 04/22 0758 98.5 108 18 145/80 90 Nasal 3.0L Cannula 04/22 0525 93 Nasal 2.0L Cannula 04/22 0000 Nasal 2.0L Cannula 04/22 0000 97.5 92 24 140/66 92 Nasal 2.0L Cannula 04/21 2103 150/70 04/21 1935 96 Nasal 2.0L Cannula 04/21 1610 97.4 113 22 112/80 96 Nasal 2.0L Cannula 04/21 1600 Nasal 2.0L Cannula Intake & Output 04/22 1600 04/22 0800 04/22 0000 Intake Total 650 Output Total Balance 650 Intake, Oral 650 Physical Exam General Appearance: Alert, Oriented X3, Cooperative, No Acute Distress Skin: 2x2 cm holloway/black elevated mole without irregular borders noted to have been increasing in size on the right flank. A smaller, 1x1 cm similar mole on right upper quadrant. HEENT: Atraumatic, Mucous Membr. moist/pink Neck: Supple Lymphatic: Cervical nl Cardiovascular: Normal S1, Normal S2 Lungs: Bilateral wheezing appreciated with mildly decreased air entry bilaterally. Abdomen: Normal Bowel Sounds, Soft, No Tenderness, No Hepatospenomegaly, No Masses Neurological: Normal Speech, Normal Tone Extremities: No Clubbing, No Cyanosis Vascular: Pulses Symmetrical Current Medications: Current Medications Sig/Leon Start time Last Medication Dose Route Stop Time Status Admin Acetaminophen 650 MG .STK-MED ONE 04/22 05 DC PO 04/22 0527 Acetaminophen 650 MG Q6P PRN 04/19 2245 AC 04/22 PO 0529 Al Hydroxide/Mg 30 ML ONCE ONE 04/22 0815 DC 04/22 Hydroxide PO 04/22 0816 0936 Albuterol Sulfate 3 ML BID 04/20 2200 AC 04/22 INH 1019 Alprazolam 0.5 MG ONCE ONE 04/22 1145 DC 04/22 PO 04/22 1146 1145 Azithromycin 500 MG 04/20 DC 04/20 Dextrose/Water 250 ML IV 205 Ceftriaxone Sodium 1,000 MG 04/20 DC 04/20 IV 2052 Docusate Sodium 100 MG DAILY NEEDED PRN 04/22 0800 AC PO Enoxaparin Sodium 40 MG DAILY 04/20 1000 AC 04/22 SC 0939 Escitalopram Oxalate 20 MG DAILY 04/20 1000 AC 04/22 PO 0936 Guaifenesin 600 MG Q12 04/20 0137 AC 04/22 PO 0936 Levothyroxine Sodium 0.15 MG DAILY AC 04/20 0700 AC 04/22 PO 0526 Methylprednisolone 40 MG Q12 04/20 2200 DC 04/21 IV 04/22 0800 2100 Oxycodone HCl 15 MG Q4 HRS NEEDED PRN 04/19 2345 AC 04/22 PO 1336 Patient Own 1 UNIT DAILY 04/21 1000 AC 04/22 Medication PO 0936 Prednisone 60 MG DAILY 04/22 1000 AC 04/22 PO 04/24 1200 0936 Senna 187 MG AT BEDTIME 04/22 2200 AC PO Tamsulosin HCl 0.4 MG DAILY 04/22 1137 AC 04/22 PO 1253 Tamsulosin HCl 0.4 MG ONCE ONE 04/21 1815 DC 04/21 PO 04/21 181 2103 Tamsulosin HCl 0.4 MG DAILY 04/21 1814 CAN PO Orders Radiology Findings: CXR: IMPRESSION: Hazy streaky infiltrates or bibasilar pneumonia suspected in the proper clinical setting. Miscellaneous Findings: Venous Doppler: IMPRESSION: Normal triplex scan without evidence of deep venous thrombosis involving the bilateral lower extremities. Assessment/Plan Assessment: Mr. Thomas is a pleasant 60 year old male with significant PMH of COPD on 2 L home O2 followed by Dr. Watts, CAROLE not on CPAP, graves disease s/p irradiation with resultant hypothyroidism, chronic back pain on oxycodone, HTN and anxiety who presents with increasing shortness of breath and increased O2 requirements from 2L to 5L as his O2 saturation dropped to 89%. Associated symptoms include increased yellow sputum production, cough with occasional chest discomfort, nasal congestion, occasional headache and nausea. In the ED: Vital signs showed T 97.6, HR 87, RR 20, BP 124/77 and 93% on 2 L NC. CXR was done and showed hazy streaky infiltrates or bibasilar PNA. EKG showed normal sinus rhythm with non specific ST/T wave changes, unchanged from prior. CBC was WNL (specifically WBC 9.3) and BEP showed Na 136, Cl 97 with no other abnormalities. Troponins negative x 2. Patient was admitted to the general medicine floor and the following is the management: 1. COPD exacerbation/ Chronic respiratory failure * Patient maintained on 2 L O2 via NC currently (home requirement), increase as needed to maintain sats >92% * TRC nebs as needed * IV antibiotics discontinued on recommendation from ID as patient has no white count, fever and CXR only mildly impressive. * LRC shows only mixed veronica after 2 days (final) * Legionella and strep urinary antigens negative * Consult with Dr. Watts placed and appreciated, who suggests continuing BREO ( home medication) * 60 mg PO prednisone x 3 days then taper by 10 mg every 3 days * Flu swab negative * Mucinex for congestion * ACS ruled out with troponins negative x 2 * Patient declines PAP for CAROLE 2. Abnormal UA * UA noted to have trace leuk esterase, 10-15 WBC, small Hgb * Urine culture shows no growth (final) * Patient does report some hesitation on urination and has been on flomax in the past, we have restarted this medication and will monitor for improvement in symptoms 3. Chronic low back pain * Continue roxicodone 15 mg q4PRN for severe pain * Ibuprofen 600 mg Q6P for moderate pain, tylenol for mild pain 4. Depression * Continue lexapro 20 mg PO daily * Patient not actively suicidal/homical with appropriate mood 5. Hypothyroidism * Continue 0.15 mg PO daily synthroid FULL CODE DVTP: Lovenox Heart Healthy Diet Chronic pain pathways Problem List: 1. DVT prophylaxis 2. Patient is full code 3. COPD exacerbation 4. Anxiety 5. Physical deconditioning Pain Ratin Pain Location: n/a Pain Goal: Remain pain free Pain Plan: Roxicodone for severe pain, tylenol for mild pain, motrin for moderate pain. Tomorrow's Labs & Rationales: None.
[2016-04-22 07:58] VITALS: BP 145/80
[2016-04-22 08:50] VITALS: BP 140/80
--- NOTE | 2016-04-22 11:40 | Patient Discharge Instructions ---
Discharge Instructions General Discharge Information You were seen/treated for: COPD exacerbation Special Instructions: Please follow up with your PCP within 1 week of discharge. Please discuss with him your need for colonoscopy given your last colonoscopy was >10 years ago. Please follow up with a long winder tender within 2 weeks of discharge for follow up on the mole on your lower back and on the right anterior abdomen. Please follow up with your small business director Dr. Watts within 2 weeks of discharge. Diet Recommended Diet: Regular Activity Full Activity/No Limits: Yes (as tolerated) Acute Coronary Syndrome Inclusion Criteria At DC or during hospital stay patient has or had the following: ACS DIAGNOSIS No Discharge Core Measures Meds if any: Prescribed or Continued at Discharge Meds if any: NOT Prescribed or Continued at Discharge Congestive Heart Failure Inclusion Criteria At DC or during hospital stay patient has or had the following: CHF DIAGNOSIS No Discharge Core Measures Meds if any: Prescribed or Continued at Discharge Meds if any: NOT Prescribed or Continued at Discharge Cerebrovascular accident Inclusion Criteria At DC or during hospital stay patient has or had the following: CVA/TIA Diagnosis No Discharge Core Measures Meds if any: Prescribed or Continued at Discharge Meds if any: NOT Prescribed or Continued at Discharge Venous thromboembolism Inclusion Criteria VTE Diagnosis No VTE Type NONE VTE Confirmed by (Test) NONE Discharge Core Measures - Per Current guidelines, there needs to be overlap - treatment for the first 5 days of Warfarin therapy. - If discharged on Warfarin prior to 5 days of - overlap therapy, the patient will need to be - assessed for post discharge needs including - *Post discharge parental anticoagulation - *Warfarin and/or parental anticoagulation education - *Follow up date to check INR post discharge At least 5 days overlap therapy as Inpatient No Meds if any: Prescribed or Continued at Discharge Note: Overlap Therapy is Warfarin and Anticoagulant Meds if any: NOT Prescribed or Continued at Discharge
--- NOTE | 2016-04-22 11:46 | NUR ---
NURSING NOTE:PT C/O BEING JITTERY,REQUESTING XANAX AGAIN, CHEESE BLENDER CALLED AND AWARE, MED GIVEN, SEE EMAR
--- NOTE | 2016-04-22 12:22 | PN- Pulmonary ---
Subjective HPI/Critical Care Issues: pt seen and examined feeling better overall but not back to baseline afebrile, hemodynamically stable no n/v/d/c Objective Current Medications: Current Medications Sig/Leon Start time Last Medication Dose Route Stop Time Status Admin Acetaminophen 650 MG Q6P PRN 04/19 2245 AC 04/22 PO 0529 Al Hydroxide/Mg 30 ML ONCE ONE 04/22 0815 DC 04/22 Hydroxide PO 04/22 0816 0936 Albuterol Sulfate 3 ML BID 04/20 2200 AC 04/22 INH 1019 Alprazolam 0.5 MG ONCE ONE 04/22 1145 DC 04/22 PO 04/22 1146 1145 Alprazolam 0.5 MG ONCE ONE 04/21 1300 DC 04/21 PO 04/21 1301 1304 Azithromycin 500 MG 04/20 DC 04/20 Dextrose/Water 250 ML IV 2052 Ceftriaxone Sodium 1,000 MG 04/20 DC 04/20 IV 2052 Docusate Sodium 100 MG DAILY NEEDED PRN 04/22 0800 AC PO Enoxaparin Sodium 40 MG DAILY 04/20 1000 AC 04/22 SC 0939 Escitalopram Oxalate 20 MG DAILY 04/20 1000 AC 04/22 PO 0936 Guaifenesin 600 MG Q12 04/20 0137 AC 04/22 PO 0936 Levothyroxine Sodium 0.15 MG DAILY AC 04/20 0700 AC 04/22 PO 0526 Methylprednisolone 40 MG Q12 04/20 2200 DC 04/21 IV 04/22 0800 2100 Oxycodone HCl 15 MG Q4 HRS NEEDED PRN 04/19 2345 04/22 PO 0632 Patient Medication 1 ED .STK-MED ONE 04/21 1407 ME Teaching ED 04/21 1408 Patient Medication 1 ED .STK-MED ONE 04/21 1357 ME Teaching ED 04/21 1358 Patient Own 1 UNIT DAILY 04/21 1000 AC 04/22 Medication PO 0936 Prednisone 60 MG DAILY 04/22 1000 AC 04/22 PO 0936 Senna 187 MG AT BEDTIME 04/22 2200 AC PO Tamsulosin HCl 0.4 MG DAILY 04/22 1137 AC PO Tamsulosin HCl 0.4 MG ONCE ONE 04/21 1815 DC 04/21 PO 04/21 1816 2103 Tamsulosin HCl 0.4 MG DAILY 01/18 1814 CAN PO Vital Signs & I&O Last 24 Hrs of Vitals and I&O: Vital Signs Date Time Temp Pulse Resp B/P Pulse O2 O2 Flow FiO2 Ox Delivery Rate 04/22 1051 92 Nasal 2.0L Cannula 04/22 0850 94 140/80 04/22 0800 92 Nasal 2.0L Cannula 04/22 0758 98.5 108 18 145/80 90 Nasal 3.0L Cannula 04/22 0525 93 Nasal 2.0L Cannula 04/22 0000 Nasal 2.0L Cannula 04/22 0000 97.5 92 24 140/66 92 Nasal 2.0L Cannula 04/21 2103 150/70 04/21 1935 96 Nasal 2.0L Cannula 04/21 1610 97.4 113 22 112/80 96 Nasal 2.0L Cannula 04/21 1600 Nasal 2.0L Cannula Intake & Output 04/22 1600 04/22 0800 04/22 0000 Intake Total 650 Output Total Balance 650 Intake, Oral 650 Exam Other Physical Findings: General - Alert, awake and oriented HEENT - normocephalic, atraumatic Cardiovascular - S1, S2 Lungs - bilateral wheezing Abdomen - soft, bowel sounds positive, no tenderness Extremities - without edema or cyanosis Impression/Plan Impression/Plan Impression/Plan: 60 year old man. Consultation requested for COPD/CAROLE and possible CAP. Significant PMH graves disease, s/p irradiation with subsequent hypothyroidism, HTN, OA with chronic back pain, HTN, anxiety and COPD on BREO with rinsing of the mouth. Former smoker, 30 pack years; quit 20 years ago. He uses 2 L of oxygen via nasal cannula at home. Dx with CAROLE, however declines to use CPAP understanding the cardiovascular risk factors. CXR - Hazy streaky infiltrates or bibasilar pneumonia suspected in the proper clinical setting. Plan - prednisone 60 mg, taper by 10mg every 3 days - monitor finger sticks - uses BREO at home - declines PAP therapy - TRC/Nebs - spo2 goal >92% - mucinex - dvt prophylaxis at all times
[2016-04-22 15:19] VITALS: BP 142/82
[2016-04-22] MEDS ORDERED: GUAIFENESIN ER600 MG PO (16:00)
[2016-04-22] MEDS ORDERED: DOCUSATE SODIU100 M3 PO (16:00)
[2016-04-22] MEDS ORDERED: SENNA-TIME S T1 EACH PO (16:00)
[2016-04-22] MEDS ORDERED: FLOMAX0.4 M1 PO (16:00)
[2016-04-22] MEDS ORDERED: PREDNISONE10 M2 PO (16:21)
--- NOTE | 2016-04-22 17:03 | Discharge Summary ---
See Addendum Visit Information Visit Dates Admission Date: 04/19/16 Discharge Date: 04/23/16 Hospital Course Course Attending Physician: EVERARDO GRIFFIN M.D Primary Care Physician: SHANNON POWELL MD Hospital Course: 60-year-old male with PMH COPD on 2L O2, hypothyroidism, CAROLE not on CPAP, chronic pain on oxycodone, was sent in by urgent care for pneumonia on CXR. Over the last 2 days, he has had increased shortness of breath, requiring up to 5L oxygen without significant relief. He has had cough productive of thick light green sputum, and has some chest pain associated with cough. He usually uses his neb max twice a day, but over the past 2 days, had used it 4 times a day. He also reported bilateral leg swelling, and soreness, the left worse than right she gotten worse recently. His temp was 100 at home, with some chills, nasal congestion, headache, and nausea. Vital Signs Temp 98, Pulse 96, RR 19, blood pressure 120 /72, O2 saturation 93% on 2 L oxygen B/P Physical Exam General Appearance Alert, Oriented X3, Cooperative, noticably short of breath talking Skin No Significant Lesion HEENT Atraumatic, PERRLA, EOMI, Mucous Membr. moist/pink, mild tenderness over frontal and maxillary sinuses Neck Supple, No JVD, +2 Carotid Pulse wo Bruit, No LAD Lymphatic Axillary nl, Cervical nl Cardiovascular Regular Rate, Normal S1, Normal S2, No Murmurs, Gallops, Rubs Lungs diffuse exp wheezes Abdomen Normal Bowel Sounds, Soft, No Tenderness Neurological Normal Speech Extremities trace pedal edema Laboratory Tests 04/20/16 0100: Troponin I unremarkable 04/19/161957: Urine Color YEL, Urine Clarity CLEAR, Urine pH 6.0, Ur Specific [place] 1.015, Urine Protein NEG, Urine Ketones NEG, Urine Nitrite NEG, Urine Bilirubin NEG, Urine Urobilinogen 0.2, Ur Leukocyte Esterase TRACE H, Ur Microscopic SEDIMENT EXAMINED, Urine RBC 1-3, Urine WBC 10-15 H, Urine Hemoglobin SMALL H, Urine Glucose NEG 04/19/161934: Anion Gap 9, Estimated GFR > 60, BUN/Creatinine Ratio 14.4, Glucose 97, Calcium 9.2, Total Bilirubin 0.8, AST 26, ALT 30, Alkaline Phosphatase 106, Troponin I < 0.01, Total Protein 7.7, Albumin 4.2, Globulin 3.5, Albumin/Globulin Ratio 1.2, CBC w Diff NO MAN DIFF REQ, RBC 5.20, MCV 87.1, MCH 28.4, RDW 14.1, MPV 7.7, Gran % 67.1, Lymphocytes % 19.0 L, Monocytes % 12.0 H, Eosinophils % 1.4, Basophils % 0.5, Absolute Granulocytes 6.3, Absolute Lymphocytes 1.8, Absolute Monocytes 1.1 H, Absolute Eosinophils 0.1, Absolute Basophils 0, PUBS MCHC 32.6 L CXR Results IMPRESSION: Hazy streaky infiltrates or bibasilar pneumonia suspected in the proper clinical setting. LE Venous doppler IMPRESSION: Normal triplex scan without evidence of deep venous thrombosis involving the bilateral lower extremities. Patient was admitted to general medicine floor and treated for these medical conditions # Pneumonia/COPD exacerbation Patient received ceftriaxone and azithromycin for only 2 days and it was established, sputum culture, urine legionella , urine strep, blood cultures were unremarkable. Patient was put on TRC mucinex with iv solu-medrol. His symptoms improved and he was put on by mouth prednisone tapering during the hospitalization and upon discharge. Pulmonary consultation suggested pulmonary rehabilitation and patient was discharged to [facility]. # Abnormal UA, hesitancy, history of BPH Urine cultures was negative. Patient was put back on Flomax. He was instructed to follow-up with his urologist in outpatient setting for his BPH. # Chronic pain, depression, hypothyroidism we continued roxicodone , Lexapro and levothyroxine. Allergies: Coded Allergies: No Known Allergies (11/06/15) Pertinent Lab Results: Intake & Output 04/23 1600 04/23 0800 04/23 0000 Intake Total 800 Output Total Balance 800 Intake, Oral 800 Number 1 Bowel Movements Disposition Summary Disposition Principal Diagnosis: COPD exacerbation Additional Diagnosis: Chronic pain CAROLE BPH Discharge Disposition: SNF Discharge Instructions General Discharge Information Code Status: Full Code Patient's Diet: regular Patient's Activity: As tolerated Follow-Up Instructions/Appts: Please follow up with your PCP within 1 week of discharge. Please discuss with him your need for colonoscopy given your last colonoscopy was >10 years ago. Please follow up with a film inspector within 2 weeks of discharge for follow up on the mole on your lower back and on the right anterior abdomen. Please follow up with your kiosk sales representative Dr. Watts within 2 weeks of discharge. Medications at Discharge Discharge Medications: Continue taking these medications: Ibuprofen (Ibuprofen) 800 MG TABLET 1 Tablet ORAL as needed for PAIN Qty = 1 Instructions: Reason to Stop at ADM: DIFFERETN PAIN PATHWAY Comments: NOT GIVEN IN HOSPITAL Escitalopram Oxalate (Escitalopram Oxalate) 20 MG TABLET 1 Tablet ORAL DAILY Qty = 30 Comments: Last Taken: 09/04/15 Time: 1000AM Levothyroxine Sodium (Levoxyl) 150 MCG TABLET 1 Tablet ORAL DAILY Comments: Last Taken: 04/23/16 Time: 0400AM Oxycodone HCl (Oxycodone HCl) 15 MG TABLET 1 Tablet ORAL Q4H Qty = 168 Comments: Last Taken: 04/23/16 Time: 0400AM Fluticasone/Vilanterol (Breo Ellipta 100-25 Mcg INH) 100 MCG-25 MCG/DOSE BLST.W.DEV 1 PUFF Inhale through mouth DAILY Qty = 60 Comments: Last Taken: 04/23/16 Time: 0930AM Start taking the following new medications: Tamsulosin HCl (Flomax) 0.4 MG CAP.ER.24H 0.4 Milligram ORAL DAILY Days = 28 No Refills Comments: Last Taken: 04/23/16 Time: 0900AM Guaifenesin (Guaifenesin ER) 600 MG TAB.ER.12H 600 Milligram ORAL EVERY 12 HOURS Days = 8 No Refills Comments: Last Taken: 04/23/16 Time: 0900AM Docusate Sodium (Docusate Sodium) 100 MG CAPSULE 100 Milligram ORAL DAILY NEEDED as needed for CONSTIPATION Days = 28 No Refills Comments: NOT GIVEN Sennosides/Docusate Sodium (Senna-Time S Tablet) 8.6 MG-50 MG TABLET 187 Milligram ORAL AT BEDTIME Days = 28 No Refills Comments: NOT GIVEN Prednisone (Prednisone) 10 MG TABLET 0 ORAL See Instructions Qty = 51 No Refills Instructions: 04/24/15 Take 6 tabs 04/25/15-04/27/15 Take 5 tabs daily 04/28/15- 04/30/15 Take 4 tabs daily 05/01/15-05/03/15 Take 3 tabs daily 05/04/15- 05/06/15 Take 2 tabs daily 05/07/15- 05/09/15 Take 1 tab daily then STOP. Comments: PREDNISONE 60MG PO GIVEN 04/23/16 @0900AM Alprazolam (Xanax) 0.5 MG TABLET 1 Tablet ORAL DAILY as needed for Anxiety Days = 5 No Refills Comments: Last Taken: 04/22/16 Time: 1200PM Copies To: ANDRE MÉNDEZ,SHANNON Bolanos; CONG MÉNDEZ,RONEL
[2016-04-22 23:22] VITALS: BP 142/80
--- NOTE | 2016-04-23 00:35 | NUR ---
ALERT AND ORIENTED X 3. VITAL SIGNS STABLE. ON 2L O2 VIA NASAL CANNULA. MEDICATION GIVEN FOR PAIN. PATIENT RESTING AT THIS TIME. WILL CONTINUE TO MONITOR
[2016-04-23 06:06] VITALS: BP 138/82
--- NOTE | 2016-04-23 06:58 | PN- Housestaff ---
See Addendum Subjective Follow-up For: COPD exacerbation Subjective: Patient seen and examined at bedside this AM. He reports he feels better and is amenable to discharge to [facility] today. His respiratory status continues to improve, though he becomes mildly anxious on his prednisone for which he gets 0.5 ativan PO as needed. Review of Systems Constitutional: Denies: chills, fever. EENTM: Reports: nasal congestion. Denies: visual changes. Cardiovascular: Denies: chest pain, palpitations. Respiratory: Reports: cough, short of breath, sputum production, wheezing. Gastrointestinal: Denies: abdominal pain, constipation, diarrhea. Genitourinary: Reports: hesitation. Denies: frequency. Musculoskeletal: Denies: muscle pain. Skin: Denies: change in skin color, change in hair/nails. Neurological/Psychological: Reports: anxiety. Denies: depressed, headache. Hematologic/Endocrine: Denies: bruising, bleeding. Immunologic/Allergic: Denies: splenectomy. Objective Last 24 Hrs of Vital Signs/I&O Vital Signs Date Time Temp Pulse Resp B/P Pulse O2 O2 Flow FiO2 Ox Delivery Rate 04/23 1013 97.4 96 22 138/82 04/23 0956 94 Nasal 2.0L Cannula 04/23 0800 95 Nasal 2.0L Cannula 04/23 0606 97.4 96 22 138/82 92 Nasal 2.0L Cannula 04/23 0000 Nasal 2.0L Cannula 04/22 2322 97.6 100 18 142/80 94 Nasal 2.0L Cannula 04/22 2040 95 Nasal 2.0L Cannula 04/22 1600 Nasal 2.0L Cannula 04/22 1540 Nasal 2.0L Cannula 04/22 1519 98.5 100 20 142/82 92 04/22 1253 90 136/78 Intake & Output 04/23 1600 04/23 0800 04/23 0000 Intake Total 800 Output Total Balance 800 Intake, Oral 800 Number 1 Bowel Movements Physical Exam General Appearance: Alert, Oriented X3, Cooperative, No Acute Distress Skin: No Significant Lesion HEENT: Atraumatic, Mucous Membr. moist/pink Neck: Supple, No JVD Lymphatic: Cervical nl Cardiovascular: Normal S1, Normal S2 Lungs: Decreased air entry bilaterally with bilateral wheezing, interval improvement since yesterday Abdomen: Normal Bowel Sounds, Soft Neurological: Normal Gait, Normal Speech Extremities: No Clubbing, No Cyanosis Vascular: Pulses Symmetrical Current Medications: Current Medications Sig/Leon Start time Last Medication Dose Route Stop Time Status Admin Acetaminophen 650 MG Q6P PRN 04/19 2245 AC 04/22 PO 0529 Albuterol Sulfate 3 ML BID 04/20 2200 AC 04/23 INH 0953 Alprazolam 0.5 MG ONCE ONE 04/23 0400 DC 04/23 PO 04/23 0401 0407 Alprazolam 0.5 MG ONCE ONE 04/22 1145 DC 04/22 PO 04/22 1146 1145 Docusate Sodium 100 MG DAILY NEEDED PRN 04/22 0800 AC PO Enoxaparin Sodium 40 MG DAILY 04/20 1000 AC 04/23 SC 0951 Escitalopram Oxalate 20 MG DAILY 04/20 1000 AC 04/23 PO 0950 Guaifenesin 600 MG Q12 04/20 0137 AC 04/23 PO 0950 Levothyroxine Sodium 0.15 MG DAILY AC 04/20 0700 AC 04/23 PO 0407 Melatonin 5 MG ONCE ONE 04/22 2345 DC 04/22 PO 04/22 2346 2344 Oxycodone HCl 15 MG Q4 HRS NEEDED PRN 04/19 2345 AC 04/23 PO 0406 Patient Own 1 UNIT DAILY 04/21 1000 AC 04/23 Medication PO 0951 Prednisone 60 MG DAILY 04/22 1000 AC 04/23 PO 04/24 1200 0950 Senna 187 MG AT BEDTIME 04/22 2200 AC 04/22 PO 2200 Tamsulosin HCl 0.4 MG DAILY 04/22 1137 AC 04/23 PO 0950 Orders Radiology Findings: CXR: IMPRESSION: Hazy streaky infiltrates or bibasilar pneumonia suspected in the proper clinical setting. Miscellaneous Findings: Venous doppler: IMPRESSION: Normal triplex scan without evidence of deep venous thrombosis involving the bilateral lower extremities. Assessment/Plan Assessment: Mr. Thomas is a pleasant 60 year old male with significant PMH of COPD on 2 L home O2 followed by Dr. Watts, CAROLE not on CPAP, graves disease s/p irradiation with resultant hypothyroidism, chronic back pain on oxycodone, HTN and anxiety who presents with increasing shortness of breath and increased O2 requirements from 2L to 5L as his O2 saturation dropped to 89%. Associated symptoms include increased yellow sputum production, cough with occasional chest discomfort, nasal congestion, occasional headache and nausea. In the ED: Vital signs showed T 97.6, HR 87, RR 20, BP 124/77 and 93% on 2 L NC. CXR was done and showed hazy streaky infiltrates or bibasilar PNA. EKG showed normal sinus rhythm with non specific ST/T wave changes, unchanged from prior. CBC was WNL (specifically WBC 9.3) and BEP showed Na 136, Cl 97 with no other abnormalities. Troponins negative x 2. Patient was admitted to the general medicine floor and the following is the management: 1. COPD exacerbation/ Chronic respiratory failure * Patient maintained on 2 L O2 via NC currently (home requirement), increase as needed to maintain sats >92% * TRC nebs as needed * IV antibiotics discontinued on recommendation from ID as patient has no white count, fever and CXR only mildly impressive. * LRC shows only mixed veronica after 2 days (final) * Legionella and strep urinary antigens negative * Consult with Dr. Mac benitez and appreciated, who suggests continuing BREO ( home medication) * 60 mg PO prednisone x 1 more day then taper by 10 mg every 3 days, patient will continue this taper at [facility] * Ativan 0.5 mg PO daily as needed x 5 days for anxiety * Flu swab negative * Mucinex for congestion * ACS ruled out with troponins negative x 2 * Patient declines PAP for CAROLE 2. Abnormal UA * UA noted to have trace leuk esterase, 10-15 WBC, small Hgb * Urine culture shows no growth (final) * Patient does report some hesitation on urination and has been on flomax in the past, we have restarted this medication and will monitor for improvement in symptoms, will follow up with his PCP for possible urology referral 3. Chronic low back pain * Continue roxicodone 15 mg q4PRN for severe pain * Ibuprofen 600 mg Q6P for moderate pain, tylenol for mild pain 4. Depression * Continue lexapro 20 mg PO daily * Patient not actively suicidal/homical with appropriate mood 5. Hypothyroidism * Continue 0.15 mg PO daily synthroid FULL CODE DVTP: Lovenox Heart Healthy Diet Chronic pain pathways Problem List: 1. DVT prophylaxis 2. Patient is full code 3. COPD exacerbation 4. Panic attack 5. Anxiety 6. Hypoxia 7. Physical deconditioning Pain Ratin Pain Location: n/a Pain Goal: Remain pain free Pain Plan: Mild-moderate pain pathway Tomorrow's Labs & Rationales: Likely discharge today.
[2016-04-23] MEDS ORDERED: XANAX0.5 M1 PO (09:37)
[2016-04-23 10:13] VITALS: BP 138/82
--- NOTE | 2016-04-23 10:48 | PN- Pulmonary ---
Subjective HPI/Critical Care Issues: Patient seen and examined. No chest pain, some shortness of breath but overall improved. No nausea, vomiting, diarrhea or constipation. Afebrile and hemodynamically stable. Objective Current Medications: Current Medications Sig/Leon Start time Last Medication Dose Route Stop Time Status Admin Acetaminophen 650 MG Q6P PRN 04/19 2245 AC 04/22 PO 0529 Albuterol Sulfate 3 ML BID 04/20 2200 AC 04/23 INH 0953 Alprazolam 0.5 MG ONCE ONE 04/23 0400 DC 04/23 PO 04/23 0401 0407 Alprazolam 0.5 MG ONCE ONE 04/22 1145 DC 04/22 PO 04/22 1146 1145 Docusate Sodium 100 MG DAILY NEEDED PRN 04/22 0800 AC PO Enoxaparin Sodium 40 MG DAILY 04/20 1000 AC 04/23 SC 0951 Escitalopram Oxalate 20 MG DAILY 04/20 1000 AC 04/23 PO 0950 Guaifenesin 600 MG Q12 04/20 0137 AC 04/23 PO 0950 Levothyroxine Sodium 0.15 MG DAILY AC 04/20 0700 AC 04/23 PO 0407 Melatonin 5 MG ONCE ONE 04/22 2345 DC 04/22 PO 04/22 2346 2344 Oxycodone HCl 15 MG Q4 HRS NEEDED PRN 04/19 2345 AC 04/23 PO 0406 Patient Own 1 UNIT DAILY 04/21 1000 AC 04/23 Medication PO 0951 Prednisone 60 MG DAILY 04/22 1000 AC 04/23 PO 04/24 1200 0950 Senna 187 MG AT BEDTIME 04/22 2200 AC 04/22 PO 2200 Tamsulosin HCl 0.4 MG DAILY 04/22 1137 AC 04/23 PO 0950 Vital Signs & I&O Last 24 Hrs of Vitals and I&O: Vital Signs Date Time Temp Pulse Resp B/P Pulse O2 O2 Flow FiO2 Ox Delivery Rate 04/23 1013 97.4 96 22 138/82 04/23 0956 94 Nasal 2.0L Cannula 04/23 0800 95 Nasal 2.0L Cannula 04/23 0606 97.4 96 22 138/82 92 Nasal 2.0L Cannula 04/23 0000 Nasal 2.0L Cannula 04/22 2322 97.6 100 18 142/80 94 Nasal 2.0L Cannula 04/22 2040 95 Nasal 2.0L Cannula 04/22 1600 Nasal 2.0L Cannula 04/22 1540 Nasal 2.0L Cannula 04/22 1519 98.5 100 20 142/82 92 04/22 1253 90 136/78 04/22 1051 92 Nasal 2.0L Cannula Intake & Output 04/23 1600 04/23 0800 04/23 0000 Intake Total 800 Output Total Balance 800 Intake, Oral 800 Number 1 Bowel Movements Exam Other Physical Findings: General - Alert, awake and oriented HEENT - normocephalic, atraumatic Cardiovascular - S1, S2 Lungs - bilateral wheezing Abdomen - soft, bowel sounds positive, no tenderness Extremities - without edema or cyanosis Impression/Plan Impression/Plan Impression/Plan: 60 year old man. Significant PMH graves disease, s/p irradiation with subsequent hypothyroidism, HTN, OA with chronic back pain, HTN, anxiety and COPD on BREO with rinsing of the mouth. Former smoker, 30 pack years; quit 20 years ago. He uses 2 L of oxygen via nasal cannula at home. Dx with CAROLE, however declines to use CPAP understanding the cardiovascular risk factors. COPD exacerbation Plan - Prednisone taper as ordered - monitor finger sticks - uses BREO at home - declines PAP therapy - TRC/Nebs - spo2 goal >92% - mucinex - dvt prophylaxis at all times Amenable to rehabilitation please arrange the possibility
== END 2016-04-23 14:44 | DRG 190 ==
LOC: ENRESERVTM → ENRESERVDT → ERH 16:27 → 2NB 20:35 → ENPENDDIS 20:35 → ERHI 20:35 → 2NB 22:49
PROVIDERS: Emergency Medicine; Internal Medicine Hematology & Oncology; ADMIT Student in an Organized Health Care Education/Training Program
DX: J44.0 Chronic obstructive pulmonary disease with (acute) lower respiratory infection (principal); J18.9 Pneumonia, unspecified organism; J96.21 Acute and chronic respiratory failure with hypoxia; J44.1 Chronic obstructive pulmonary disease with (acute) exacerbation; Z87.891 Personal history of nicotine dependence; Z99.81 Dependence on supplemental oxygen; E66.01 Morbid (severe) obesity due to excess calories; Z68.38 Body mass index [BMI] 38.0-38.9, adult; E03.9 Hypothyroidism, unspecified; G89.29 Other chronic pain; G47.33 Obstructive sleep apnea (adult) (pediatric)
CPT/HCPCS: 36415; 81001; 82436; 87040; 87070; 87086; 87449; 87450; 87804; 87804-59; 93005; 93010; 93970; 96374; 96375; J0456; J0696; J1650; J2920; J2930; J3490; J7060

== ENCOUNTER 2016-09-14 19:34 | Inpatient (IN) | payer OTHER, MEDICARE ==
[~2016-09-14] VITALS: Ht 172.7 cm; Wt 111.1 kg
[~2016-09-14 19:34] MED LIST changes: +BREO ELLIPTA 11 EACH INH; +DOCUSATE SODIU100 M3 PO; +FLOMAX0.4 M1 PO; +GUAIFENESIN ER600 MG PO; +SENNA-TIME S T1 EACH PO; +XANAX0.5 M1 PO
--- NOTE | 2016-09-14 19:50 | NUR ---
TRIAGE: WORSENING DYSPNEA X2 DAYS. PT IS ON 2LNC BASELINE OXYGEN AND SAT 93-95%. HX COPD AND EMPHYSEMA. DYSPNIC ON EXERTION IN TRIAGE. CONCERNED BECAUSE HAD BRONCHITIS. PT ENDORSES DARK GREEN/BROWN PRODUCTIVE COUGH X2-3 DAYS. 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 EKG COMPLETED ON ARRIVAL
[2016-09-14 20:07] LABS: ABSOLUTE BASOPHIL COUNT 0.1 /CUMM (0.0-0.2); ABSOLUTE EOSINOPHIL COUNT 0.1 /CUMM (0.0-0.7); ABSOLUTE GRANULOCYTE CT 8.4 /CUMM (1.4-6.5); ABSOLUTE LYMPH COUNT 1.4 /CUMM (1.2-3.4); BASOPHIL % 0.8 % (0.0-2.0); EOSINOPHIL % 1.1 % (0-5); GRANULOCYTE % 76.2 % (42.2-75.2); HEMATOCRIT 40.5 % (42-52); MEAN CORPUSCULAR HGB CONC 32.6 G/DL (33.0-37.0); MEAN CORPUSCULAR VOLUME 89.2 FL (80.0-94.0); MEAN PLATELET VOLUME 7.3 FL (7.4-10.4); PLATELET COUNT 226 /CUMM (130-400); RBC DISTRIBUTION WIDTH 12.7 % (11.5-14.5); RED BLOOD CELL CT 4.55 /CUMM (4.70-6.10)
--- NOTE | 2016-09-14 20:27 | NUR ---
PT TO ROOM 12. TAKEN AND RETURNED FROM XRAY.
--- NOTE | 2016-09-14 20:32 | NUR ---
PT PREFERS TO STAY SITTING IN WHEELCHAIR. O2 SATS 94% ON 2L NC WITH EXP WHEEZING. HOME DOSE OF OX IS 2 LITERS
--- NOTE | 2016-09-14 20:41 | ED DYSPNEA/ASTHMA COMPLAINT ---
History of Present Illness General Chief Complaint: Dyspnea (COPD, CHF, Other) Stated Complaint: SOB Source: patient, old records Exam Limitations: no limitations Vital Signs & Intake/Output Vital Signs & Intake/Output Vital Signs Date Time Temp Pulse Resp B/P B/P Pulse O2 O2 Flow FiO2 Mean Ox Delivery Rate 09/14 2313 97.0 92 22 116/57 95 Nasal 2.0L Cannula 09/15 2051 96 Nasal 2.0L Cannula 09/14 2032 Nasal 2.0L Cannula 09/14 1941 99.0 106 24 132/79 95 Nasal 2.0L Cannula Allergies Coded Allergies: No Known Allergies (11/06/15) Reconcile Medications Alprazolam (Xanax) 0.5 MG TABLET 1 TAB PO DAILY PRN Anxiety Escitalopram Oxalate (Lexapro) 20 MG TABLET 1 TAB PO DAILY MENTAL HEALTH ( Reported) Fluticasone/Vilanterol (Breo Ellipta 100-25 Mcg INH) 100 MCG-25 MCG/DOSE BLST.W.DEV 1 PUFF INH DAILY COPD (Reported) Gabapentin 600 MG TABLET 1 TAB PO TID NERVE PAIN (Reported) Ibuprofen 800 MG TABLET 1 TAB PO PRN PAIN (Reported) Reason to Stop at ADM: DIFFERETN PAIN PATHWAY Levothyroxine Sodium (Levoxyl) 150 MCG TABLET 1 TAB PO DAILY THYROID ( Reported) Oxycodone HCl 15 MG TABLET 1 TAB PO Q4H PAIN (Reported) Triage Note: TRIAGE: WORSENING DYSPNEA X2 DAYS. PT IS ON 2LNC BASELINE OXYGEN AND SAT 93-95%. HX COPD AND EMPHYSEMA. DYSPNIC ON EXERTION IN TRIAGE. CONCERNED BECAUSE HAD BRONCHITIS. PT ENDORSES DARK GREEN/BROWN PRODUCTIVE COUGH X2-3 DAYS. 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 EKG COMPLETED ON ARRIVAL Triage Nurses Notes Reviewed? yes HPI: Patient has O2 dependent COPD. The past 2 days he has been having increased work of breathing, productive cough and increased oxygen demand. Patient is usually on 2 L nasal cannula. He has had to increase it to 3 L. There is no chest pain or chest tightness. There are no fevers or chills. There is anorexia but there is no nausea or vomiting. His is just getting over a chest cold. Patient denies any orthopnea. Past History Travel History Traveled to [place] past 21 day No Medical History Any Pertinent Medical History? 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 FATHER (unknown). Hx Contributory? No Review of Systems Review of Systems Constitutional: Reports: no symptoms. EENTM: Reports: no symptoms. Respiratory: Reports: see HPI, cough, short of breath, wheezing. Cardiovascular: Reports: no symptoms. GI: Reports: see HPI. Genitourinary: Reports: no symptoms. Musculoskeletal: Reports: no symptoms. Skin: Reports: no symptoms. Neurological/Psychological: Reports: no symptoms. Hematologic/Endocrine: Reports: no symptoms. Immunologic/Allergic: Reports: no symptoms. All Other Systems: Reviewed and Negative Physical Exam Physical Exam General Appearance: well developed/nourished, alert, awake, anxious, moderate distress Head: atraumatic, normal appearance Eyes: Bilateral: PERRL, EOMI. Ears, Nose, Throat: normal pharynx, normal ENT inspection, hearing grossly normal Neck: normal inspection, supple, full range of motion, NO JVD Respiratory: chest non-tender, rhonchi (SCATTERED), wheezing Cardiovascular: regular rate/rhythm, normal peripheral pulses Gastrointestinal: normal bowel sounds, soft, non-tender Extremities: normal inspection, normal capillary refill, normal range of motion Neurologic/Psych: no motor/sensory deficits, awake, alert, oriented x 3, normal mood/affect Skin: intact, normal color, warm/dry Core Measures ACS in differential dx? No Severe Sepsis Present: No Septic Shock Present: No Progress Differential Diagnosis: AMI, bronchitis, CHF, COPD, pulmonary embolism, pneumonia, pneumothorax Plan of Care: Orders Procedure Date/time Status Patient Data 09/14 2258 Active Admit to inpatient 06/13 2232 Active BLOOD CULTURE 09/15 2043 Active Intake & Output 09/14 2034 Active TROPONIN LEVEL 09/14 1942 Complete COMPREHENSIVE METABOLIC PANEL 09/14 1942 Complete CBC WITHOUT DIFFERENTIAL 09/14 1942 Complete EKG 09/14 1936 Active Laboratory Tests 09/14/161953: Anion Gap 9, Estimated GFR > 60, BUN/Creatinine Ratio 20.0, Glucose 95, Calcium 8.6, Total Bilirubin 0.5, AST 23, ALT 35, Alkaline Phosphatase 108, Troponin I < 0.01, Total Protein 6.9, Albumin 3.9, Globulin 3.0, Albumin/Globulin Ratio 1.3, RBC 4.55 L, MCV 89.2, MCH 29.0, RDW 12.7, MPV 7.3 L, Gran % 76.2 H, Lymphocytes % 13.0 L, Monocytes % 8.9, Eosinophils % 1.1, Basophils % 0.8, Absolute Granulocytes 8.4 H, Absolute Lymphocytes 1.4, Absolute Monocytes 1.0 H, Absolute Eosinophils 0.1, Absolute Basophils 0.1, PUBS MCHC 32.6 L Microbiology 09/14 2144 BLOOD: Blood Culture - RECD 09/14 2129 BLOOD: Blood Culture - RECD Diagnostic Imaging: Viewed by Me: Radiology Read. Discussed w/RAD: Radiology Read. CXR Impression: PATIENT: CATALINA DOUGLAS PRESENT AGE: 60 PATIENT ACCOUNT NO: [id number] : 53 LOCATION: [facility] ORDERING PHYSICIAN: FLAVIO DUCKWORTH MD SERVICE DATE: 09/14/16 EXAM TYPE: RAD - XRY-CHEST XRAY, PA AND LATERAL EXAMINATION: XR CHEST CLINICAL INFORMATION: Productive cough. Shortness of breath. COMPARISON: Chest x-ray 04/19/2016 TECHNIQUE: 2 views of the chest were obtained. FINDINGS: Asymmetric elevation of right diaphragm compared to left. Lungs are clear. No pulmonary vascular congestion. No pleural effusion or pneumothorax. Cardiac and mediastinal contours are normal. The heart size is normal. IMPRESSION: No acute change of the chest. DICTATED BY: RENEE DUBOSE MD DATE/TIME DICTATED:09/14/162044 BEATER LEAD :COSMO DATE/TIME TRANSCRIBED:09/14/162044 CONFIDENTIAL, DO NOT COPY WITHOUT APPROPRIATE AUTHORIZATION. <Electronically signed in Other Vendor System> SIGNED BY: RENEE DUBOSE MD 09/14/162049 Initial ED EKG: NSR, nonspecific ST T wave chg Prior EKG: unchanged Departure Departure Disposition: STILL A PATIENT Condition: Stable Clinical Impression Primary Impression: COPD exacerbation Referrals: ANDRE MÉNDEZ,SHANNON Bolanos (PCP/Family) Departure Forms: Customer Survey General Discharge Information Admission Note Spoke With: IVANA WOOD MD Documentation of Exam: Documentation of any treatments & extenuating circumstances including Concerns Regarding Discharge (functional status, medication knowledge or non-compliance, living conditions, etc.) that warrant an admission rather than observation: [IV STEROIDS, PULM CONSULT, IV ABX, NEBS] Critical Care Note Critical Care Note Critical Care Time: non-applicable
--- NOTE | 2016-09-14 20:50 | RADIOLOGY REPORT ---
EXAMINATION: XR CHEST CLINICAL INFORMATION: Productive cough. Shortness of breath. COMPARISON: Chest x-ray 04/19/2016 TECHNIQUE: 2 views of the chest were obtained. FINDINGS: Asymmetric elevation of right diaphragm compared to left. Lungs are clear. No pulmonary vascular congestion. No pleural effusion or pneumothorax. Cardiac and mediastinal contours are normal. The heart size is normal. IMPRESSION: No acute change of the chest.
[2016-09-14] MEDS ORDERED: LEXAPRO20 M1 PO (22:48)
[2016-09-14] MEDS ORDERED: GABAPENTIN600 M1 PO (22:49)
--- NOTE | 2016-09-14 23:00 | History & Physical ---
RANJAN MÉNDEZ,[facility] [place]33: General Information and HPI MD Statement: I have seen and personally examined CATALINA THOMAS and documented this H&P. The patient is a 60 year old M who presented with a patient stated chief complaint of shortness of breath. Source of Information: patient, old records Exam Limitations: no limitations History of Present Illness: Mr. Thomas is a 60 y/o morbidly obese M with PMHx of COPD on 2 L oxygen, CAROLE not on CPAP and osteoarthritis with chronic pain who presents with progressively worsening shortness of breath x3 days. During this time patient has had to frequently increase his oxygen to 2.5 L. He also endorses scant brownish phlegm that he brings up after respiratory treatments. Patient endorses orthopnea and peripheral edema but this has been going on for a while and is currently unchanged from baseline. He denies sick contacts, fever, chills, chest pain, abdominal pain, nausea or vomiting. ROS is also positive for dysuria. Of note patient was taking Flomax up until 6 months ago which he stopped taking on his own as he was no longer experiencing urinary symptoms. However recently he has been feeling like he is not emptying his bladder well and has resumed the Flomax. He has anxiety at baseline but stopped taking Xanax and is no longer on any medications for it. He has a history of CAROLE but has declined to use CPAP. ECHO in April 2015 has shown somewhat hyperdynamic left ventricular systolic contractility with LVEF estimated at >70% and [id number] pulmonary HTN with pulmonary artery pressure estimated at 40-45 mmHg. In the ED, patient was administered 1 dose of ceftriaxone and azithromycin, 125 mg of IV Solumedrol and nebulizer treatment. Allergies/Medications Allergies: Coded Allergies: No Known Allergies (11/06/15) Home Med list Escitalopram Oxalate (Lexapro) 20 MG TABLET 1 TAB PO DAILY MENTAL HEALTH ( Reported) Fluticasone/Vilanterol (Breo Ellipta 100-25 Mcg INH) 100 MCG-25 MCG/DOSE BLST.W.DEV 1 PUFF INH DAILY COPD (Reported) Ibuprofen 800 MG TABLET 1 TAB PO PRN PAIN (Reported) Reason to Stop at ADM: DIFFERETN PAIN PATHWAY Levothyroxine Sodium (Levoxyl) 150 MCG TABLET 1 TAB PO DAILY THYROID ( Reported) Oxycodone HCl 15 MG TABLET 1 TAB PO Q4H PAIN (Reported) Past History Travel History Traveled to [place] past 21 day No Medical History Neurological: NONE EENT: NONE Cardiovascular: hyperlipidemia Respiratory: COPD, obstructive sleep apnea Gastrointestinal: NONE Hepatic: NONE Renal: benign prost hyperplasia Musculoskeletal: osteoarthritis, chronic pain Psychiatric: anxiety, depression Endocrine: Grave's disease, hypothyroidism Blood Disorders: NONE Cancer(s): NONE GREETER/Reproductive: BPH History of MRSA: No History of VRE: No History of CDIFF: No Influenza Vaccine: 03/04/16 Surgical History Surgical History: appendectomy, right finger surgery, left ankle surgery, left foot surgery Past Family/Social History Family History Relations & Conditions if any MOTHER (Alzheimer, DM, CAD). FATHER (unknown). Psychosocial History Where do you live? Home Who Do You Live With? spouse, child Services at Home: None Primary Language: [place] Smoking Status: Former Smoker (Quit 20 Yrs Ago, 30 Pack Yrs) ETOH Use: denies use Functional Ability ADLs Independent: dressing, eating, toileting, bathing. Ambulation: independent IADLs Independent: finances, telephone, transportation, medication admin. Employment History Employment Disability Review of Systems Review of Systems Constitutional: Denies: chills, fever. EENTM: Reports: no symptoms. Cardiovascular: Reports: orthopena, peripheral edema. Denies: chest pain. Respiratory: Reports: cough, short of breath, sputum production. GI: Denies: abdominal pain, nausea, vomiting. Genitourinary: Reports: dysuria, hesitation. Musculoskeletal: Reports: see HPI (chronic pain). Skin: Reports: no symptoms. Neurological/Psychological: Reports: anxiety. Hematologic/Endocrine: Reports: no symptoms. Immunologic/Allergic: Reports: no symptoms. All Other Systems: Reviewed and Negative Exam & Diagnostic Data Last 24 Hrs of Vital Signs/I&O Vital Signs Date Time Temp Pulse Resp B/P B/P Pulse O2 O2 Flow FiO2 Mean Ox Delivery Rate 09/15 0105 Nasal 2.0L Cannula 09/15 0020 98.6 105 24 144/76 92 Nasal 2.5L Cannula 09/14 2312 97.0 92 22 116/57 95 Nasal 2.0L Cannula 09/15 2051 96 Nasal 2.0L Cannula 09/14 2032 Nasal 2.0L Cannula 09/14 1941 99.0 106 24 132/79 95 Nasal 2.0L Cannula Vital Signs Date Time Temp Pulse Resp B/P B/P Pulse O2 O2 Flow FiO2 Mean Ox Delivery Rate 09/15 0105 Nasal 2.0L Cannula 09/15 0020 98.6 105 24 144/76 92 Nasal 2.5L Cannula 09/14 2313 97.0 92 22 116/57 95 Nasal 2.0L Cannula 09/15 2051 96 Nasal 2.0L Cannula 09/14 2032 Nasal 2.0L Cannula 09/14 1941 99.0 106 24 132/79 95 Nasal 2.0L Cannula Intake & Output 09/15 0800 09/15 0000 09/14 1600 Intake Total Output Total Balance Patient 111.13 kg 111.13 kg Weight Weight Reported by Patient Reported by Patient Measurement Method Physical Exam General Appearance Alert, Oriented X3, No Acute Distress Skin No Rashes Skin Temp/Moisture Exam: Warm/Dry HEENT Atraumatic, Mucous Membr. moist/pink Neck Supple Cardiovascular Regular Rate, Normal S1, Normal S2 Lungs Diminished Breath Sounds, Few Scattered Expiratory Wheezes, Mild Prolongation of Expiratory Phase Abdomen Soft, No Tenderness, Positive Bowel Sounds Extremities No Clubbing, No Cyanosis, 1+ Edema on Bilateral Lower Extremities Last 24 Hrs of Labs/Miko: Laboratory Tests 09/14/161953: Anion Gap 9, Estimated GFR > 60, BUN/Creatinine Ratio 20.0, Glucose 95, Calcium 8.6, Total Bilirubin 0.5, AST 23, ALT 35, Alkaline Phosphatase 108, Troponin I < 0.01, Total Protein 6.9, Albumin 3.9, Globulin 3.0, Albumin/Globulin Ratio 1.3, RBC 4.55 L, MCV 89.2, MCH 29.0, RDW 12.7, MPV 7.3 L, Gran % 76.2 H, Lymphocytes % 13.0 L, Monocytes % 8.9, Eosinophils % 1.1, Basophils % 0.8, Absolute Granulocytes 8.4 H, Absolute Lymphocytes 1.4, Absolute Monocytes 1.0 H, Absolute Eosinophils 0.1, Absolute Basophils 0.1, PUBS MCHC 32.6 L Microbiology 09/14 2144 BLOOD: Blood Culture - RECD 09/14 2129 BLOOD: Blood Culture - RECD Diagnostic Data EKG Results Sinus tachycardia HR 102 QTc 428 CXR Results No acute change of the chest. Assessment/Plan Assessment: Mr. Thomas is a 60 y/o morbidly obese M with PMHx of COPD on 2 L oxygen, CAROLE not on CPAP and osteoarthritis with chronic pain who presents with progressively worsening shortness of breath. #COPD exacerbation: Current presentation with SOB, productive cough and mild expiratory wheezes on lung exam consistent with COPD exacerbation. No focal consolidation on CXR to suggest pneumonia. Patient is afebrile although with mild leukocytosis (WBC count 11.0), likely reactive. Although ROS is positive for orthopnea and leg edema concerning for CHF, this is chronic and unchanged from baseline. Current symptoms are more consistent with COPD exacerbation and CXR with no pulmonary vascular congestion to suggest CHF. ECHO in April 2015 with somewhat hyperdynamic left ventricular systolic contractility with LVEF estimated at >70% and ddie-he-euyymqaa pulmonary HTN. Currently comfortable and satting well on 2 L NC, which is his baseline oxygen requirement. S/p 125 mg of IV Solumedrol and 1 dose of azithromycin and ceftriaxone in the ED. * Admit to General Medicine. * Start Solumedrol 40 mg IV Q12H. * Continue okpfr-ui-extlobxkd Breo Ellipta inhaler 1 puff daily. * TRC and nebs. * Mucinex ER 600 mg PO BID. * Provide supplementary oxygen as needed to keep SpO2 >92%. * Pulmonology consult in the AM. Appreciate their recs. * Check proBNP. #Hypothyroidism: * Continue cifvm-ck-bdkmvktxj levothyroxine 0.15 mg PO daily. #Depression: * Continue jgtuu-le-fjgfhelyd escitalopram 20 mg PO daily. #Chronic pain: * Continue ahcpr-xg-nzubjxkzz oxycodone 15 mg PO Q4H PRN. Diet: Heart Healthy Pain: Tylenol 650 mg PO Q6H PRN for mild pain (scale 1-3) Motrin 600 mg PO Q6H PRN for moderate pain (scale 4-6) Oxycodone 15 mg PO Q4H PRN for severe pain (scale 7-10) DVT PPx: Lovenox and ALPs CODE: FULL As Ranked By This Provider Problem List: 1. COPD exacerbation 2. Hypothyroidism 3. Depression 4. Chronic pain Core Measures/Miscellaneous Acute Coronary Syndrome ACS Diagnosis: No Cerebrovascular Accident CVA/TIA Diagnosis: No Congestive Heart Failure CHF Diagnosis: No VTE (View Protocol) VTE Risk Factors: Acute medical illness, Age > 40, CHF or Resp failure, Obesity [facility] prophylaxis d/t: No contraindications No VTE Pharm Prophylaxis d/t: No contraindications VTE Diagnosis: No VTE Type: NONE VTE Confirmed by (Test): NONE Sepsis (View Protocol) Severe Sepsis Present: No Septic Shock Septic Shock Present: No Miscellaneous Documentation Attending Case Discussed With: IVAAN WOOD MD Primary Care Physician: SHANNON POWELL MD Patient sees these Specialists Day Care Assistant [place] MD Level of Patient Care: General Medicine FELI VAIL 09/15/16 0322: Resident Review Statement Resident Statement: examined this patient, discussed with graphic design intern, agreed with graphic design intern, reviewed images, amended to note Other Findings: This is a 60 years old gentleman with the past medical history of hypothyroidism , chronic pain, COPD on 2 L oxygen at home who is presenting with 3 day history of cough and shortness of breath necessitating bump up off his oxygen to 2.5 L. The cough is productive of brownish sputum small amount he denies any sick contacts he has no fever no chills he volunteers painful urination and increase in urine frequency, the patient reports restarting his old prescription of Flomax and for which she noted slight improvement. When the patient arrived in the ER he was afebrile 99.0 he was tachycardic at 106 and increased respiration of 24 but was saturating 95% on 2 L with normal blood pressure 132/79 Physical examination: Patient seated comfortably on the bed not in acute distress able to speak in complete sentences with oxygen nasal canula in situ. His chest demonstrated mild expiratory wheeze with sections having bronchial breath sounds diffusely across the chest. He has mild pitting edema +1 in the bilateral lower limbs. Labs showed mild leukocytosis 11,000 CXR no acute changes Assessment and plan COPD exacerbation Anxiety Hypothyroidism Chronic pain Admitting the patient to general medicine floor, vital signs every shift Condition received stress dose Solu-Medrol 125 mg in the ER will continue at 40 mg twice a day, IV azithromycin 500 mg daily Total respiratory care and nebulizations Hypothyroidism continue home medication levothyroxine 150 g Chronic pain continue home medication oxycodone 15 mg every 4 when necessary, we will add Tylenol and ibuprofen for mild and moderate pain Patient is full code Lovenox for DVT prophylaxis IVANA WOOD 09/15/16 0538: Attending MD Review Statement Attending Statement Attending MD Statement: examined this patient, discuss w/resident/PA/PROFESSIONAL CASTER, agreed w/resident/PA/PROFESSIONAL CASTER, reviewed EMR data (avail), reviewed images, amended to note Attending Assessment/Plan: CC: Worsening shortness of breath, productive cough PMH: COPD on 2 L nasal cannula, Graves' disease S/P ablation currently hypothyroidism, chronic pain and anxiety Patient presented in ER today with three-day history of worsening shortness of breath, requiring increased oxygen by nasal cannula up to 2.5-3 L, associated with cough and brown color sputum production. Patient's complaints of right- sided chest pain after coughing but not related to respiration. Denies any sick contacts, fever, chills at home, patient endorses some bilateral lower extremity edema. Patient also gets on and off dysuria related to his BPH. Vitals: Afebrile, mild tachycardia and tachypnea, blood pressure 132/79, saturating 92% on 2 L nasal cannula. On examination: A O 3, cooperative, mild respiratory distress, complete sentences without shortness of breath, neck supple, JVD normal, no lymphadenopathy, mucosa moist, no focal neurological deficit, pedal edema present, no obvious skin rashes or inflammation CVS: S1-S2, RRR. RS: Diffuse intermittent wheezing. Abdomen: Soft, NT, ND, bowel sounds present. Peripheral pulses perfusion normal Labs: WBC 11.0, neutrophils 76% hemoglobin 13.2, hematocrit 40.5, sodium 131, chloride 87, bicarbonate 35 otherwise BMP, LFT, troponin unremarkable. CXR: No acute changes on chest EKG: Unremarkable A and P 60-year-old male with a past medical history significant for oxygen dependent COPD presented with worsening of shortness of breath since 3 days associated with productive cough and brown color sputum production, patient does not have any pleuritic chest pain, x-ray infiltrate or significant leukocytosis. Patient had been afebrile. On examination there are mild intermittent wheezing diffusely , and requiring up to 2.5 related to saturate around 92%. Appears to be COPD exacerbation + Acute on chronic respiratory failure secondary to COPD exacerbation + Rule out heart failure + History of hypothyroidism, anxiety, depression - Admit to general medicine - Continue O2 by nasal cannula, wean off to his baseline - Scheduled and when necessary nebulization with albuterol and ipratropium - IV methylprednisolone 40 mg every 12 hours - Mucinex 600 mg by mouth twice a day - Azithromycin IV - Check proBNP - Repeat CBC BMP in a.m. - Continue home doses of levothyroxine, pain medications, Lexapro and Xanax - DVT prophylaxis with Lovenox
--- NOTE | 2016-09-14 23:32 | NUR ---
REPORT GIVEN TO JUSTINA SARABIA
--- NOTE | 2016-09-14 23:43 | NUR ---
ASSUMED CARE OF PT FROM NO STUART AT THIS TIME. PT RESTING COMFORTABLY IN CHAIR. 02 SATS 94% ON 2L NC. OFFERS NO COMPLAINTS AT THIS TIME.
--- NOTE | 2016-09-14 23:52 | NUR ---
HOUSE STAFF IN TO SEE PT
--- NOTE | 2016-09-14 23:56 | NUR ---
REPORT GIVEN TO NO BERRY
[2016-09-15 00:20] VITALS: BP 144/76
--- NOTE | 2016-09-15 05:39 | Admission Certification ---
Admission Certification Certification Statement - As attending physician, I certify that at the time of - admission, based on clinical presentation, severity of - symptoms, need for further diagnostic testing and - therapeutic interventions, and risk of adverse outcomes - without in-hospital treatment, in my clinical assessment, - this patient requires an acute hospital stay for a minimum - of two nights or longer. I have also considered psychsocial - factors such as support system, advanced age, financial - issues, cognitive issues, and failed out-patient treatments, - past re-admission history, safety of patient, and lack of - compliance as applicable. Specific rationale supporting this admission is: COPD exacerbation with acute on chronic respiratory failure
[2016-09-15 06:30] VITALS: BP 130/74
[2016-09-15 08:27] LABS: ABSOLUTE BASOPHIL COUNT 0 /CUMM (0.0-0.2); ABSOLUTE EOSINOPHIL COUNT 0 /CUMM (0.0-0.7); ABSOLUTE GRANULOCYTE CT 9.2 /CUMM (1.4-6.5); ABSOLUTE LYMPH COUNT 0.6 /CUMM (1.2-3.4); ABSOLUTE MONOCYTE COUNT 0 /CUMM (0.10-0.60); BASOPHIL % 0.1 % (0.0-2.0); EOSINOPHIL % 0 % (0-5); GRANULOCYTE % 94.1 % (42.2-75.2); HEMATOCRIT 41.3 % (42-52); MEAN CORPUSCULAR HGB 29.2 PG (27.0-31.0); MEAN CORPUSCULAR HGB CONC 32.7 G/DL (33.0-37.0); MEAN CORPUSCULAR VOLUME 89.5 FL (80.0-94.0); MEAN PLATELET VOLUME 8.1 FL (7.4-10.4); PLATELET COUNT 224 /CUMM (130-400); RBC DISTRIBUTION WIDTH 12.9 % (11.5-14.5); RED BLOOD CELL CT 4.62 /CUMM (4.70-6.10)
--- NOTE | 2016-09-15 09:00 | PN- Housestaff ---
EUGENE KRUGER MD,LUIS F 09/15/16 0859: Subjective Follow-up For: COPD exacerbation Complaints: no complaints Subjective: Patient feels better than yesterday. No acute episodes of chest pain or shortness of breath overnight Review of Systems Constitutional: Denies: chills, fever. Cardiovascular: Denies: chest pain, palpitations. Respiratory: Reports: cough, short of breath. Gastrointestinal: Denies: abdominal pain, nausea, vomiting. Objective Last 24 Hrs of Vital Signs/I&O Vital Signs Date Time Temp Pulse Resp B/P B/P Pulse O2 O2 Flow FiO2 Mean Ox Delivery Rate 09/15 1039 Nasal 2.0L Cannula 09/15 1035 95 Nasal 2.0L Cannula 09/15 0800 Nasal 2.0L Cannula 09/15 0630 98.6 107 22 130/74 93 Nasal Cannula 09/15 0105 Nasal 2.0L Cannula 09/15 0020 98.6 105 24 144/76 92 Nasal 2.5L Cannula 09/14 2313 97.0 92 22 116/57 95 Nasal 2.0L Cannula 09/14 205 96 Nasal 2.0L Cannula 09/14 203 Nasal 2.0L Cannula 09/14 194 99.0 106 24 132/79 95 Nasal 2.0L Cannula Intake & Output 09/15 1600 09/15 0800 09/15 0000 Intake Total 240 Output Total Balance 240 Intake, Oral 240 Patient 245 lb 245 lb Weight Weight Reported by Patient Reported by Patient Measurement Method Physical Exam General Appearance: Alert, Oriented X3, Cooperative, No Acute Distress HEENT: Atraumatic Cardiovascular: Regular Rate, Normal S1, Normal S2 Lungs: MILD WHEEZES ON BILATERAL LUNG EXAMINATION Abdomen: Normal Bowel Sounds, Soft, No Tenderness Neurological: Normal Speech, Normal Tone, Sensation Intact Extremities: No Edema Current Medications: Current Medications Sig/Leon Start time Last Medication Dose Route Stop Time Status Admin Acetaminophen 650 MG Q6P PRN 09/15 0300 AC PO Albuterol Sulfate 3 ML BID 09/15 2200 AC 09/15 INH 1027 Albuterol Sulfate 3 ML ONCE ONE 09/14 2044 DC 09/14 INH 09/14 Azithromycin 250 MG DAILY 09/15 1000 CAN PO 09/18 1001 Azithromycin 250 MG DAILY 09/15 1000 AC 09/15 Sodium Chloride 250 ML IV 09/18 1059 1057 Azithromycin 500 MG ONCE ONE 09/14 2044 DC 09/14 Sodium Chloride 250 ML IV 09/15 2143 225 Budesonide/ 2 PUF BID 09/15 1000 AC 09/15 Formoterol Fumarate INH 1002 Ceftriaxone Sodium 0 .STK-MED ONE 09/15 2151 DC .ROUTE Ceftriaxone Sodium 1,000 MG ONCE ONE 09/14 2044 DC 09/14 IV 09/14 Diazepam 5 MG BID PRN 09/15 0730 AC PO Diazepam 5 MG ONCE ONE 09/15 0300 DC 09/15 PO 09/15 0301 0304 Diazepam 2 MG ONCE ONE 09/15 0115 DC 09/15 PO 09/15 0116 0121 Enoxaparin Sodium 40 MG DAILY 09/15 1000 AC 09/15 SC 0845 Escitalopram Oxalate 20 MG DAILY 09/15 1000 AC 09/15 PO 0845 Guaifenesin 600 MG Q12 09/15 1000 AC 09/15 PO 0847 Guaifenesin 10 ML Q6PRN PRN 09/15 0300 DC PO Ibuprofen 600 MG Q6P PRN 09/15 0300 AC PO Ipratropium [place] 2.5 ML ONCE ONE 09/14 2044 DC 09/14 INH 09/14 Levothyroxine Sodium 0.15 MG DAILY AC 09/15 0700 AC 09/15 PO 0647 Methylprednisolone 40 MG Q8 09/15 1400 AC IV 09/18 2200 Methylprednisolone 40 MG Q12 09/15 1000 DC 09/15 IV 09/20 2200 0844 Methylprednisolone 0 .STK-MED ONE 09/14 2116 DC .ROUTE Methylprednisolone 125 MG ONCE ONE 09/14 2044 DC 09/14 IV 09/14 Non-Formulary 0 SEE ADMIN CRITERIA 09/15 030 CAN Medication ANY Oxycodone HCl 15 MG Q4P PRN 09/15 0300 AC 09/15 PO 0845 Last 24 Hrs of Lab/Miko Results Last 24 Hrs of Labs/Mics: Laboratory Tests 09/15/16614: Anion Gap 10, Estimated GFR > 60, BUN/Creatinine Ratio 21.4, CBC w Diff NO MAN DIFF REQ, RBC 4.62 L, MCV 89.5, MCH 29.2, RDW 12.9, MPV 8.1, Gran % 94.1 H, Lymphocytes % 5.6 L, Monocytes % 0.2 L, Eosinophils % 0, Basophils % 0.1, Absolute Granulocytes 9.2 H, Absolute Lymphocytes 0.6 L, Absolute Monocytes 0 L, Absolute Eosinophils 0, Absolute Basophils 0, PUBS MCHC 32.7 L 09/14/161953: Anion Gap 9, Estimated GFR > 60, BUN/Creatinine Ratio 20.0, Glucose 95, Calcium 8.6, Total Bilirubin 0.5, AST 23, ALT 35, Alkaline Phosphatase 108, Troponin I < 0.01, Bpv-N-Xhmpzyglpxx Pept 37.4, Total Protein 6.9, Albumin 3.9, Globulin 3.0, Albumin/Globulin Ratio 1.3, RBC 4.55 L, MCV 89.2, MCH 29.0, RDW 12.7, MPV 7.3 L, Gran % 76.2 H, Lymphocytes % 13.0 L, Monocytes % 8.9, Eosinophils % 1.1, Basophils % 0.8, Absolute Granulocytes 8.4 H, Absolute Lymphocytes 1.4, Absolute Monocytes 1.0 H, Absolute Eosinophils 0.1, Absolute Basophils 0.1, PUBS MCHC 32.6 L Microbiology 09/14 2144 BLOOD: Blood Culture - RES 09/14 2129 BLOOD: Blood Culture - RES Lines/Diet/Fluids Lines: peripheral lines Restraints: none Assessment/Plan Assessment: 60-year-old male with past medical history significant for chronic obstructive pulmonary disease, dependent on 2 L of oxygen at home, obstructive sleep apnea not compliant with CPAP, osteoarthritis, Graves' disease S/P ablation currently hypothyroidism, chronic pain and anxiety presented with worsening of shortness of breath since 3 days associated with productive cough. Patient is admitted on general medicine floor for the management of following problems COPD exacerbation - Inciting event unknown. No History of URTI or ill contacts ? Compliance vs Worseneing of disease. - Currently Afebrile - Hemodynamically stable - WBC count 9.8 - Admit to General Medicine Floor - Vitals Q shift - Oxygen by nasal canula as required, taper as tolerated - Start Tiotropium Inhaler 1 puff daily - Start Symicort Inhaler 2 puffs inhaler BID - Strat IV Steroids Methylprednisone 40mg Q8 IV - Taper Steroids with clinical improvement - Continue Zithromax for COPD exacerbation - TRC Nebs as needed - Pulmo Consult Patient is full code Patient is on heart healthy diet Patient is on Lovenox for DVT prophylaxis Patient is on pain management Problem List: 1. COPD exacerbation Pain Ratin Pain Location: Back Pain Goal: Pain 4 or less Pain Plan: Patient is currently in pain management pathway Tomorrow's Labs & Rationales: BEP for hyponatremia DVT/Prophylaxis: pharmacological DEREJE,RAYFRANKLIN 09/15/16 0944: Attending Review Statement Attending Statement Attending MD Statement: examined this patient, discuss w/resident/PA/CONTENT DEVELOPMENT MANAGER, agreed w/resident/PA/CONTENT DEVELOPMENT MANAGER, discussed with family, reviewed EMR data (avail), discussed with nursing, discussed with case mgmt, reviewed images, amended to note Attending Assessment/Plan: ASSESSMENT 1. Acute on chronic respiratory failure secondary to COPD exacerbation 2. Rule out heart failure recent ECHO EF 70% pro bnp 37.4 3. History of hypothyroidism, anxiety, depression 4. Mild to moderate pulm htn RVSP 40-45 PLAN - patient admitted to inpatient medical services. - O2 supplementation, BDs, abx, IV steroid 40 mg q 8. Mucinex 600 mg by mouth twice a day - resume home doses of levothyroxine, pain medications, Lexapro and Xanax - DVT prophylaxis with Lovenox. gi/dvt prophyalxis full code.
[2016-09-15 10:09] LABS: WHITE BLOOD CELL COUNT 9.8 /CUMM (4.8-10.8)
--- NOTE | 2016-09-15 11:03 | Cons- Pulmonary ---
See Addendum General Information and HPI Consulting Request Date of Consult: 09/15/16 Requested By: Dr. Bautista Reason for Consult: COPD exacerbation Source of Information: patient, old records Exam Limitations: no limitations History of Present Illness: 60 YO man with history of COPD (on 2 L at home), noncompliant with CPAP, Graves disease s/p radiation with subsequent hypothyroidism, HTN, OA with chronic pain, anxiety presented last night complaining of several days of increased shortness of breath and brownish sputum production. This has caused him to increase his oxygen requirements from 2 L to 3 L without any improvement in symptoms. Denies fevers, chills, chest pain, chest tightness. Reports that was recently sick and was given antibiotics. Echocardiogram performed 04/29/2015 demonstrates mild to moderately elevated pulmonary pressure, 40-45 mmHg. ED he was administered ceftriaxone and azithromycin along with 125 mg of IV Solu- Medrol, this morning reports that he feels better. Allergies/Medications Allergies: Coded Allergies: No Known Allergies (11/06/15) Home Med List: Escitalopram Oxalate (Lexapro) 20 MG TABLET 1 TAB PO DAILY MENTAL HEALTH ( Reported) Fluticasone/Vilanterol (Breo Ellipta 100-25 Mcg INH) 100 MCG-25 MCG/DOSE BLST.W.DEV 1 PUFF INH DAILY COPD (Reported) Ibuprofen 800 MG TABLET 1 TAB PO PRN PAIN (Reported) Reason to Stop at ADM: DIFFERETN PAIN PATHWAY Levothyroxine Sodium (Levoxyl) 150 MCG TABLET 1 TAB PO DAILY THYROID ( Reported) Oxycodone HCl 15 MG TABLET 1 TAB PO Q4H PAIN (Reported) Current Medications: Current Medications Sig/Leon Start time Last Medication Dose Route Stop Time Status Admin Acetaminophen 650 MG Q6P PRN 09/15 0300 AC PO Albuterol Sulfate 3 ML BID 09/15 2200 AC 09/15 INH 1027 Albuterol Sulfate 3 ML ONCE ONE 09/14 2044 DC 09/14 INH 09/14 Azithromycin 250 MG DAILY 09/15 1000 CAN PO 09/18 1001 Azithromycin 250 MG DAILY 09/15 1000 AC Sodium Chloride 250 ML IV 09/18 1059 Azithromycin 500 MG ONCE ONE 09/14 2044 DC 09/14 Sodium Chloride 250 ML IV 09/15 2143 2255 Budesonide/ 2 PUF BID 09/15 1000 AC 09/15 Formoterol Fumarate INH 1002 Ceftriaxone Sodium 0 .STK-MED ONE 09/15 2151 DC .ROUTE Ceftriaxone Sodium 1,000 MG ONCE ONE 09/14 2044 DC 09/14 IV 09/14 Diazepam 5 MG BID PRN 09/15 0730 AC PO Diazepam 5 MG ONCE ONE 09/15 0300 DC 09/15 PO 09/15 0301 0304 Diazepam 2 MG ONCE ONE 09/15 0115 DC 09/15 PO 09/15 0116 0121 Enoxaparin Sodium 40 MG DAILY 09/15 1000 AC 09/15 SC 0845 Escitalopram Oxalate 20 MG DAILY 09/15 1000 AC 09/15 PO 0845 Guaifenesin 600 MG Q12 09/15 1000 AC 09/15 PO 0847 Guaifenesin 10 ML Q6PRN PRN 09/15 0300 DC PO Ibuprofen 600 MG Q6P PRN 09/15 0300 AC PO Ipratropium [place] Clear 2.5 ML ONCE ONE 09/14 2044 DC 09/14 INH 09/14 Levothyroxine Sodium 0.15 MG DAILY AC 09/15 0700 AC 09/15 PO 0647 Methylprednisolone 40 MG Q8 09/15 1400 AC IV 09/18 2200 Methylprednisolone 40 MG Q12 09/15 1000 DC 09/15 IV 09/20 220 0844 Methylprednisolone 0 .STK-MED ONE 09/14 2116 DC .ROUTE Methylprednisolone 125 MG ONCE ONE 09/14 2044 DC 09/14 IV 09/14 Non-Formulary 0 SEE ADMIN CRITERIA 09/15 030 CAN Medication ANY Oxycodone HCl 15 MG Q4P PRN 09/15 0300 AC 09/15 PO 0845 Review of Systems Review of Systems Constitutional: Denies: chills, diaphoresis, fever, malaise, weakness. EENTM: Reports: no symptoms. Cardiovascular: Reports: orthopena, peripheral edema. Denies: chest pain, palpitations. Respiratory: Reports: cough, orthopnea, short of breath, sputum production. Denies: wheezing. GI: Reports: no symptoms. Genitourinary: Reports: no symptoms. Musculoskeletal: Reports: no symptoms. Skin: Reports: moles. Neurological/Psychological: Reports: anxiety. Hematologic/Endocrine: Reports: no symptoms. All Other Systems: Reviewed and Negative Past History Travel History Traveled to [place] past 21 day No Medical History Blood Transfusion Hx: No Neurological: NONE EENT: NONE Cardiovascular: hyperlipidemia Respiratory: COPD, obstructive sleep apnea Gastrointestinal: NONE Hepatic: NONE Renal: NONE Musculoskeletal: chronic back pain, osteoarthritis Psychiatric: anxiety, depression Endocrine: hypothyroidism, GRAVES DX s/p irradiation Blood Disorders: NONE Cancer(s): NONE [employer]/Reproductive: BPH Surgical History Surgical History: appendectomy, right finger surgery left ankle surgery Left Foot Surgery Family History Relations & Conditions If Any: MOTHER (Alzheimer, DM, CAD). FATHER (unknown). Psychosocial History Where Do You Live? Home Who Do You Live With? spouse, child Services at Home: None Primary Language: Guinean Smoking Status: Former Smoker (Quit 20 Yrs Ago, 30 Pack Yrs) ETOH Use: denies use Illicit Drug Use: denies illicit drug use Functional Ability ADLs Independent: dressing, eating, toileting, bathing. Ambulation: independent IADLs Independent: finances, telephone, transportation, medication admin. Employment History Employment: Disability Exam & Diagnostic Data Last 24 Hrs of Vital Signs/I&O Vital Signs Date Time Temp Pulse Resp B/P B/P Pulse O2 O2 Flow FiO2 Mean Ox Delivery Rate 09/15 1039 Nasal 2.0L Cannula 09/15 1035 95 Nasal 2.0L Cannula 09/15 0630 98.6 107 22 130/74 93 Nasal Cannula 09/15 0105 Nasal 2.0L Cannula 09/15 0020 98.6 105 24 144/76 92 Nasal 2.5L Cannula 09/14 2313 97.0 92 22 116/57 95 Nasal 2.0L Cannula 09/14 2052 96 Nasal 2.0L Cannula 09/14 2032 Nasal 2.0L Cannula 09/14 1942 99.0 106 24 132/79 95 Nasal 2.0L Cannula Intake & Output 09/15 1600 09/15 0800 09/15 0000 Intake Total 240 Output Total Balance 240 Intake, Oral 240 Patient 245 lb 245 lb Weight Weight Reported by Patient Reported by Patient Measurement Method Physical Exam General Appearance: alert, awake, comfortable, obese Head: atraumatic Eyes: Bilateral: normal appearance, PERRL, EOMI. Neck: normal inspection, supple Respiratory: normal breath sounds, quiet respiration Cardiovascular: regular rate/rhythm, normal peripheral pulses Peripheral Pulses: 2+ radial (R), 2+ radial (L) Gastrointestinal: normal bowel sounds, soft Extremities: trace edema Neurologic/Psych: awake, alert, oriented x 3 Last 48 Hrs of Labs/Miko: Laboratory Tests 09/15/16 0615: Anion Gap 10, Estimated GFR > 60, BUN/Creatinine Ratio 21.4, CBC w Diff NO MAN DIFF REQ, RBC 4.62 L, MCV 89.5, MCH 29.2, RDW 12.9, MPV 8.1, Gran % 94.1 H, Lymphocytes % 5.6 L, Monocytes % 0.2 L, Eosinophils % 0, Basophils % 0.1, Absolute Granulocytes 9.2 H, Absolute Lymphocytes 0.6 L, Absolute Monocytes 0 L, Absolute Eosinophils 0, Absolute Basophils 0, PUBS MCHC 32.7 L 09/14/161953: Anion Gap 9, Estimated GFR > 60, BUN/Creatinine Ratio 20.0, Glucose 95, Calcium 8.6, Total Bilirubin 0.5, AST 23, ALT 35, Alkaline Phosphatase 108, Troponin I < 0.01, Cjg-[id number] Pept 37.4, Total Protein 6.9, Albumin 3.9, Globulin 3.0, Albumin/Globulin Ratio 1.3, RBC 4.55 L, MCV 89.2, MCH 29.0, RDW 12.7, MPV 7.3 L, Gran % 76.2 H, Lymphocytes % 13.0 L, Monocytes % 8.9, Eosinophils % 1.1, Basophils % 0.8, Absolute Granulocytes 8.4 H, Absolute Lymphocytes 1.4, Absolute Monocytes 1.0 H, Absolute Eosinophils 0.1, Absolute Basophils 0.1, PUBS MCHC 32.6 L Diagnostic Data CXR Results Asymmetric elevation of right diaphragm compared to left. Lungs are clear. No pulmonary vascular congestion. No pleural effusion or pneumothorax. Cardiac and mediastinal contours are normal. The heart size is normal. Assessment/Plan Impression/Plan: 60-year-old male with a past medical history significant for COPD on 2 L at baseline, CAROLE noncompliant with CPAP, from home complaining of increased productive cough and increasing shortness of breath. Denies fevers, chills, imaging negative for acute infection, mild elevation in white count. Lungs clear this morning post treatment. Admited overnight for COPD exacerbation. Recommendations: Continue oxygen supplementation keeping O2 >92% IV methylprednsione 40mg Q12, will change in am to oral Continue IV azithromycin today Continue mucinex TRC/nebs Coninue symbicort Appears to have anxious component to symptoms would trial low dose anti-anxiety medication DVTppx, lovenox Problem List: 1. COPD (chronic obstructive pulmonary disease) 2. Patient is full code 3. DVT prophylaxis Consult Acknowledgment - Thank you for your consult request.
[2016-09-15 13:41] VITALS: BP 140/80
--- NOTE | 2016-09-15 21:56 | Patient Discharge Instructions ---
Discharge Instructions General Discharge Information You were seen/treated for: COPD Exacerbation Special Instructions: Follow up with PCP in a week after discharge Follow up with [facility] after discharge Intake appointment at [facility] at [address] [place] [address] in [place], [place] scheduled for September 30 at 8:45 AM with Leesa Garcia LCSW. Please bring your insurance card and ID. Call [phone] with any questions. Diet Continue normal diet: Yes Activity Full Activity/No Limits: Yes Acute Coronary Syndrome Inclusion Criteria At DC or during hospital stay patient has or had the following: ACS DIAGNOSIS No Discharge Core Measures Meds if any: Prescribed or Continued at Discharge Meds if any: NOT Prescribed or Continued at Discharge Congestive Heart Failure Inclusion Criteria At DC or during hospital stay patient has or had the following: CHF DIAGNOSIS No Discharge Core Measures Meds if any: Prescribed or Continued at Discharge Meds if any: NOT Prescribed or Continued at Discharge Cerebrovascular accident Inclusion Criteria At DC or during hospital stay patient has or had the following: CVA/TIA Diagnosis No Discharge Core Measures Meds if any: Prescribed or Continued at Discharge Meds if any: NOT Prescribed or Continued at Discharge Venous thromboembolism Inclusion Criteria VTE Diagnosis No VTE Type NONE VTE Confirmed by (Test) NONE Discharge Core Measures - Per Current guidelines, there needs to be overlap - treatment for the first 5 days of Warfarin therapy. - If discharged on Warfarin prior to 5 days of - overlap therapy, the patient will need to be - assessed for post discharge needs including - *Post discharge parental anticoagulation - *Warfarin and/or parental anticoagulation education - *Follow up date to check INR post discharge At least 5 days overlap therapy as Inpatient No Meds if any: Prescribed or Continued at Discharge Note: Overlap Therapy is Warfarin and Anticoagulant Meds if any: NOT Prescribed or Continued at Discharge
[2016-09-15 22:57] VITALS: BP 130/64
--- NOTE | 2016-09-16 05:40 | NUR ---
PT HAD A FEW SHORT PERIODS OF SLEEP LAST NIGHT, RESTLESS, FREQUENT TRIPS TO THE BATHROOM. RESPIRATORY WAS CALL FOR A Tx. MEDICATIONS ADMINISTERED WITH LITTLE RELIEF. WILL CONTINUE TO MONITOR THIS SHIFT.
--- NOTE | 2016-09-16 07:40 | PN- Housestaff ---
See Addendum Subjective Follow-up For: COPD exacerbation Complaints: no complaints Subjective: Patient did not complain of any shortness of breath or chest pain overnight. He feels better than yesterday but wants to stay 1 more night. Review of Systems Constitutional: Denies: chills, fever. EENTM: Denies: visual changes. Cardiovascular: Denies: chest pain. Respiratory: Reports: cough, short of breath. Objective Last 24 Hrs of Vital Signs/I&O Vital Signs Date Time Temp Pulse Resp B/P B/P Pulse O2 O2 Flow FiO2 Mean Ox Delivery Rate 09/16 0902 92 Nasal 2.0L Cannula 09/16 0743 97.8 59 20 120/68 91 Nasal 2.0L Cannula 09/16 0156 92 Nasal 2.0L Cannula 09/16 0000 91 Nasal 2.0L Cannula 09/15 2257 98.1 93 24 130/64 91 Nasal 2.0L Cannula 09/15 1938 91 Nasal 2.0L Cannula 09/15 1600 Nasal 2.0L Cannula 09/15 1341 97.9 100 20 140/80 90 Nasal 2.0L Cannula Intake & Output 09/16 1600 09/16 0800 09/16 0000 Intake Total 250 250 Output Total Balance 250 250 Intake, IV 10 10 Intake, Oral 240 240 Physical Exam General Appearance: Alert, Oriented X3, Cooperative, No Acute Distress HEENT: Atraumatic, PERRLA Cardiovascular: Regular Rate, Normal S1, Normal S2 Lungs: mild wheezes in bilateral lung examination Abdomen: Normal Bowel Sounds, Soft, No Tenderness Neurological: Normal Speech, Normal Tone Extremities: No Clubbing, No Cyanosis, No Edema Current Medications: Current Medications Sig/Leon Start time Last Medication Dose Route Stop Time Status Admin Acetaminophen 650 MG Q6P PRN 09/15 0300 AC PO Albuterol Sulfate 3 ML BID 09/15 2200 AC 09/16 INH 0858 Apixaban 10 MG BID 09/16 1026 DC PO Azithromycin 500 MG DAILY 09/16 1000 AC 09/16 Sodium Chloride 250 ML IV 09/18 1059 0839 Azithromycin 250 MG DAILY 09/15 1000 DC 09/15 Sodium Chloride 250 ML IV 09/18 1059 1057 Budesonide/ 2 PUF BID 09/15 1000 AC 09/16 Formoterol Fumarate INH 0840 Diazepam 5 MG BID PRN 09/15 0730 AC 09/16 PO 0528 Enoxaparin Sodium 40 MG DAILY 09/15 1000 AC 09/16 SC 0839 Escitalopram Oxalate 20 MG DAILY 09/15 1000 AC 09/16 PO 0839 Guaifenesin 600 MG Q12 09/15 1000 AC 09/16 PO 0839 Ibuprofen 600 MG Q6P PRN 09/15 0300 AC PO Levothyroxine Sodium 0.15 MG DAILY AC 09/15 0700 AC 09/16 PO 0524 Methylprednisolone 40 MG Q12 09/15 2200 AC 09/16 IV 09/20 2201 0840 Oxycodone HCl 15 MG Q4P PRN 09/15 0300 AC 09/16 PO 0837 Patient Medication 1 ED .[facility] 09/15 1415 [place] Teaching ED 09/15 1416 Assessment/Plan Assessment: 60-year-old male with past medical history significant for chronic obstructive pulmonary disease, dependent on 2 L of oxygen at home, obstructive sleep apnea not compliant with CPAP, osteoarthritis, Graves' disease S/P ablation currently hypothyroidism, chronic pain and anxiety presented with worsening of shortness of breath since 3 days associated with productive cough. Patient is admitted on general medicine floor for the management of following problems COPD exacerbation - Inciting event unknown. No History of URTI or ill contacts ? Compliance vs Worseneing of disease. - Currently Afebrile - Hemodynamically stable - Last WBC count 9.8 - Admit to General Medicine Floor - Vitals Q shift - Oxygen by nasal canula as required, taper as tolerated - Start Tiotropium Inhaler 1 puff daily - Start Symicort Inhaler 2 puffs inhaler BID -Continue IV Steroids Methylprednisone 40mg Q12 IV - Taper Steroids with clinical improvement - Continue Zithromax for COPD exacerbation - TR Nebs as needed - Pulmo Consult Patient is full code Patient is on heart healthy diet Patient is on Lovenox for DVT prophylaxis Patient is on pain management Problem List: 1. History of Graves' disease 2. COPD (chronic obstructive pulmonary disease) 3. COPD exacerbation Pain Ratin Pain Location: Back pain Pain Goal: Pain 4 or less Pain Plan: Pain management pathway medications Tomorrow's Labs & Rationales: None DVT/Prophylaxis: pharmacological
[2016-09-16 07:43] VITALS: BP 120/68
--- NOTE | 2016-09-16 10:33 | PN- Pulmonary ---
ALAYNA MÉNDEZ,GABRIELLE 09/16/16 1023: Subjective HPI/Critical Care Issues: 60 YO man with history of COPD (on 2 L at home), noncompliant with CPAP, Graves disease s/p radiation with subsequent hypothyroidism, HTN, OA with chronic pain, anxiety presented complaining of several days of increased shortness of breath and brownish sputum production. He has been started on IV steroids along with azithromycin. States that he has been anxious overnight. Objective Current Medications: Current Medications Sig/Leon Start time Last Medication Dose Route Stop Time Status Admin Acetaminophen 650 MG Q6P PRN 09/15 0300 AC PO Albuterol Sulfate 3 ML BID 09/15 2200 AC 09/16 INH 0858 Apixaban 10 MG BID 09/16 1026 UNVr PO Azithromycin 500 MG DAILY 09/16 1000 AC 09/16 Sodium Chloride 250 ML IV 09/18 1059 0839 Azithromycin 250 MG DAILY 09/15 1000 DC 09/15 Sodium Chloride 250 ML IV 09/18 1059 1057 Budesonide/ 2 PUF BID 09/15 1000 AC 09/16 Formoterol Fumarate INH 0840 Diazepam 5 MG BID PRN 09/15 0730 AC 09/16 PO 0528 Enoxaparin Sodium 40 MG DAILY 09/15 1000 AC 09/16 SC 0839 Escitalopram Oxalate 20 MG DAILY 09/15 1000 AC 09/16 PO 0839 Guaifenesin 600 MG Q12 09/15 1000 AC 09/16 PO 0839 Ibuprofen 600 MG Q6P PRN 09/15 0300 AC PO Levothyroxine Sodium 0.15 MG DAILY AC 09/15 0700 AC 09/16 PO 0524 Methylprednisolone 40 MG Q12 09/15 2200 AC 09/16 IV 09/20 2201 0840 Methylprednisolone 40 MG Q8 09/15 1400 DC IV 09/18 2201 Oxycodone HCl 15 MG Q4P PRN 09/15 0300 AC 09/16 PO 0837 Patient Medication 1 ED .[facility] 09/15 1415 [place] Teaching ED 09/15 1416 Vital Signs & I&O Last 24 Hrs of Vitals and I&O: Vital Signs Date Time Temp Pulse Resp B/P B/P Pulse O2 O2 Flow FiO2 Mean Ox Delivery Rate 09/16 0902 92 Nasal 2.0L Cannula 09/16 0743 97.8 59 20 120/68 91 Nasal 2.0L Cannula 09/16 0156 92 Nasal 2.0L Cannula 09/16 0000 91 Nasal 2.0L Cannula 09/15 2257 98.1 93 24 130/64 91 Nasal 2.0L Cannula 09/15 1938 91 Nasal 2.0L Cannula 09/15 1600 Nasal 2.0L Cannula 09/15 1341 97.9 100 20 140/80 90 Nasal 2.0L Cannula 09/15 1039 Nasal 2.0L Cannula 09/15 1035 95 Nasal 2.0L Cannula Intake & Output 09/16 1600 09/16 0800 09/16 0000 Intake Total 250 250 Output Total Balance 250 250 Intake, IV 10 10 Intake, Oral 240 240 Exam General Appearance: no apparent distress, alert, awake, anxious Head: atraumatic, normal appearance Neck: normal inspection, supple Respiratory: normal breath sounds, quiet respiration Cardiovascular: regular rate/rhythm, normal peripheral pulses Abdomen: normal bowel sounds, soft Extremities: no edema Impression/Plan Impression/Plan Impression/Plan: 60-year-old male with a past medical history significant for COPD on 2 L at baseline, CAROLE noncompliant with CPAP, from home complaining of increased productive cough and increasing shortness of breath. Denies fevers, chills, imaging negative for acute infection. Appears to have an anxious component to symptoms. Recommendations: Continue oxygen supplementation keeping O2 >92% IV methylprednsione 40mg Q12 today Continue IV azithromycin today Continue mucinex TRC/nebs Coninue symbicort Appears to have anxious component to symptoms would increase anti-anxiety medication DVTppx loveSOUTH Roca MD 09/16/16 1200: Impression/Plan Impression/Plan Recommendations: [place] M.D. have examined this patient, reviewed available EMR data, personally reviewed images, discussed with resident/PA/DRESS DRAPER, discussed management plan with housestaff and nursing staff, discussed managment plan all of healthcare providers, discussed management plan with patient and/or family, agreed with resident/PA/DRESS DRAPER. The past history and parts of the chart have been autopopulated.
[2016-09-16 13:54] VITALS: BP 152/90
[2016-09-16 22:06] VITALS: BP 144/70
[2016-09-17 06:29] VITALS: BP 130/66
--- NOTE | 2016-09-17 07:48 | PN- Housestaff ---
See Addendum Subjective Follow-up For: COPD exacerbation Complaints: anxiety Subjective: Patient feels better in terms of his shortness of breath. He is very anxious and would like to see a psychiatrist during hospital admission Review of Systems Constitutional: Denies: chills, fever. EENTM: Denies: visual changes. Cardiovascular: Denies: chest pain, palpitations. Respiratory: Reports: cough. Denies: short of breath. Gastrointestinal: Denies: abdominal pain, nausea, vomiting. Objective Last 24 Hrs of Vital Signs/I&O Vital Signs Date Time Temp Pulse Resp B/P B/P Pulse O2 O2 Flow FiO2 Mean Ox Delivery Rate 09/17 0629 97.5 94 20 130/66 94 Nasal 2.5L Cannula 09/17 0508 92 Nasal 2.0L Cannula 09/17 0000 Nasal 2.0L Cannula 09/16 2206 98.4 108 20 144/70 93 Nasal 2.5L Cannula 09/16 1840 94 Nasal 2.0L Cannula 09/16 1600 Nasal 2.0L Cannula 09/16 1354 99.3 100 20 152/90 94 Nasal 2.0L Cannula Intake & Output 09/17 1600 09/17 0800 09/17 0000 Intake Total 240 700 Output Total Balance 240 700 Intake, Oral 240 700 Physical Exam General Appearance: Alert, Oriented X3, Cooperative, No Acute Distress, anxious HEENT: Atraumatic Cardiovascular: Regular Rate, Normal S1, Normal S2 Lungs: improved wheezing bilateral lung zones Abdomen: Normal Bowel Sounds, Soft, No Tenderness Neurological: Normal Speech, Normal Tone, Sensation Intact Extremities: No Edema Current Medications: Current Medications Sig/Leon Start time Last Medication Dose Route Stop Time Status Admin Acetaminophen 650 MG Q6P PRN 09/15 0300 AC PO Albuterol Sulfate 3 ML BID 09/15 2200 AC 09/17 INH 0507 Apixaban 10 MG BID 09/16 1026 DC PO Azithromycin 500 MG DAILY 09/16 1000 AC 09/16 Sodium Chloride 250 ML IV 09/18 1059 0839 Budesonide/ 2 PUF BID 09/15 1000 AC 09/16 Formoterol Fumarate INH 2037 Diazepam 5 MG BID PRN 09/15 0730 AC 09/16 PO 1350 Enoxaparin Sodium 40 MG DAILY 09/15 1000 AC 09/16 SC 0839 Escitalopram Oxalate 20 MG DAILY 06/14 1000 AC 09/16 PO 0839 Guaifenesin 600 MG Q12 09/15 1000 AC 09/16 PO 2037 Ibuprofen 600 MG Q6P PRN 09/15 0300 AC PO Levothyroxine Sodium 0.15 MG DAILY AC 09/17 0700 AC 09/17 PO 0556 Levothyroxine Sodium 0.15 MG DAILY AC 09/15 0700 DC 09/16 PO 0524 Methylprednisolone 40 MG Q12 09/15 2200 AC 09/16 IV 09/20 Oxycodone HCl 15 MG Q4P PRN 09/15 0300 AC 09/17 PO 0402 Lines/Diet/Fluids Restraints: none Assessment/Plan Assessment: 60-year-old male with past medical history significant for chronic obstructive pulmonary disease, dependent on 2 L of oxygen at home, obstructive sleep apnea not compliant with CPAP, osteoarthritis, Graves' disease S/P ablation currently hypothyroidism, chronic pain and anxiety presented with worsening of shortness of breath since 3 days associated with productive cough. Patient is admitted on general medicine floor for the management of following problems COPD exacerbation - Inciting event unknown. No History of URTI or ill contacts ? Compliance vs Worseneing of disease. - Currently Afebrile - Hemodynamically stable - Last WBC count 9.8 - Admit to General Medicine Floor - Vitals Q shift - Oxygen by nasal canula as required, taper as tolerated - Start Tiotropium Inhaler 1 puff daily - Start Symicort Inhaler 2 puffs inhaler BID - Switch IV Steroids Methylprednisone 40mg Q12 IV to PO steroids with a short taper - Taper Steroids with clinical improvement - Continue Zithromax for COPD exacerbation - TRC Nebs as needed - Pulmo Consult History of anxiety Patient is currently in 5 mg twice a day of Valium when necessary Patient is full code Patient is on heart healthy diet Patient is on Lovenox for DVT prophylaxis Patient is on pain management Problem List: 1. COPD exacerbation Pain Ratin Pain Location: NA Pain Goal: Pain 4 or less Pain Plan: Continue current pain medications Tomorrow's Labs & Rationales: Not needed
--- NOTE | 2016-09-17 09:45 | Cons- Psychiatry ---
Psychiatric Consult Date of Consult: 09/17/16 Reason for Consult: "Severe anxiety" Odered by Dr. Sean Bautista attending History of Present Illness: Identifying Info: 60-year-old male presents to [facility] emergency department on 09/14/2016 with chief complaint of dyspnea. Admitted to medicine with COPD exacerbation. CC: "I go nuts with anxiety... I will follow-up with you guys this time." HPI: Patient reports "for the past 10 years things just keep getting worse and worse. " He has had increased depression he related to to financial issues including his house being foreclosed on, chronic pain, and chronic medical illness. He reports that he has had high baseline anxiety for a long period of time and this predates his current COPD diagnosis. He verbalizes understanding of the role of anxiety in COPD and feels he needs additional help. He is agreeable to see a psychiatric prescriber. Of note on previous admissions the patient was referred to [facility] outpatient services and [facility] outpatient services but failed to follow-up with appointments provided. He feels at present he is ready to keep appointment. The patient feels Lexapro, prescribed by PCP, has been helpful for him but has not covered his anxiety entirely and is ready to try a new or augmenting agent. States he recently started taking gabapentin 600 3 times a day mg however he feels this dose is too high as he felt quite out of it and was unsure if he experienced hallucinations and would be agreeable to trying a lower dose. He is currently on steroids which increases his anxiety significantly. Review of BMP reveals patient gets prescription for oxycodone monthly and over the past year has gotten brief prescriptions for diazepam preprocedure. 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 Abuse/Trauma: Did not obtain Current Home Psychotropic Medications: Gabapentin 600 mg 3 times a day Lexapro 20 mg daily Current Hospital Psychotropic Medications: Med Diazepam 5 MG PO BID PRN 09/15/16 0730 Escitalopram Oxalate 20 MG PO DAILY 09/15/16 1000 Allergies: Coded Allergies: No Known Allergies (11/06/15) Current Medications: Current Medications Sig/Leon Start time Last Medication Dose Route Stop Time Status Admin Acetaminophen 650 MG Q6P PRN 09/15 0300 AC PO Albuterol Sulfate 3 ML BID 09/15 2200 AC 09/17 INH 0507 Apixaban 10 MG BID 09/16 1026 DC PO Azithromycin 500 MG DAILY 09/16 1000 AC 09/17 Sodium Chloride 250 ML IV 09/18 1059 0908 Budesonide/ 2 PUF BID 09/15 1000 AC 09/17 Formoterol Fumarate INH 0908 Diazepam 5 MG BID PRN 09/15 0730 AC 09/16 PO 1350 Enoxaparin Sodium 40 MG DAILY 09/15 1000 AC 09/17 SC 0908 Escitalopram Oxalate 20 MG DAILY 09/15 1000 AC 09/17 PO 0908 Guaifenesin 600 MG Q12 09/15 1000 AC 09/17 PO 0908 Ibuprofen 600 MG Q6P PRN 09/15 0300 AC PO Levothyroxine Sodium 0.15 MG DAILY AC 09/17 0700 AC 09/17 PO 0556 Levothyroxine Sodium 0.15 MG DAILY AC 09/15 0700 DC 09/16 PO 0524 Methylprednisolone 40 MG Q12 09/15 2200 AC 09/17 IV 09/20 2201 0908 Oxycodone HCl 15 MG Q4P PRN 09/15 0300 AC 09/17 PO 0909 Past History Past Medical History Neurological: NONE EENT: NONE Cardiovascular: hyperlipidemia Respiratory: COPD, obstructive sleep apnea Gastrointestinal: NONE Hepatic: NONE Renal: benign prost hyperplasia Musculoskeletal: osteoarthritis, chronic pain Psychiatric: anxiety, depression Endocrine: Grave's disease, hypothyroidism Blood Disorders: NONE Cancer(s): 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 Past Surgical History Surgical History: appendectomy, right finger surgery left ankle surgery left foot surgery Psychosocial History Strengths/Capabilities: Help seeking Physical Limitations (Interventions): Chronic medical illness Psychiatric Treatment History Psych Treatment Psychiatric Treatment No Diagnosis: Unspecified anxiety disorder vs anxiety disorder due to another medical condition Alcohol use disorder in remssion Risk Factors: chronic/serious med cond., high anxiety/distress, male Substance Use/Abuse History Drug Use/Abuse Substances Used/Abused Yes Substance Abuse Treatment Substance Abuse Treatment Past Substance Abuse [place] Yes Assessment/Plan Mental Status Mental Status Exam: Mental Status Exam Presentation/Appearance: Cooperative with evaluation. Hospital garb. Orientation: Grossly oriented Sensorium: Awake and alert Eye contact: Appropriate Affect: Somewhat blunted but congruent with stated mood Mood: "Depressed" Depression: Endorses Anxiety: Endorses Thought Content: - Denies SI/HI, AH/VH, PI. States and also believes they will not kill themselves. - Denies Hopeless/Helpless Thoughts Thought Process: Linear Associations: Appropriate Speech: Normal tone and rate Judgment: Intact Insight: Intact Cognition: Memory: Grossly intact Attention/Concentration: Intact Fund of Knowledge: Adequate Abstractions: Did not assess MMSE: Did not assess Lab Results: Laboratory Tests 09/15/1615: Anion Gap 10, Estimated GFR > 60, BUN/Creatinine Ratio 21.4, CBC w Diff NO MAN DIFF REQ, RBC 4.62 L, MCV 89.5, MCH 29.2, RDW 12.9, MPV 8.1, Gran % 94.1 H, Lymphocytes % 5.6 L, Monocytes % 0.2 L, Eosinophils % 0, Basophils % 0.1, Absolute Granulocytes 9.2 H, Absolute Lymphocytes 0.6 L, Absolute Monocytes 0 L, Absolute Eosinophils 0, Absolute Basophils 0, PUBS MCHC 32.7 L 09/14/161953: Anion Gap 9, Estimated GFR > 60, BUN/Creatinine Ratio 20.0, Glucose 95, Calcium 8.6, Total Bilirubin 0.5, AST 23, ALT 35, Alkaline Phosphatase 108, Troponin I < 0.01, Pbl-S-Gtvqkigbxke Pept 37.4, Total Protein 6.9, Albumin 3.9, Globulin 3.0, Albumin/Globulin Ratio 1.3, RBC 4.55 L, MCV 89.2, MCH 29.0, RDW 12.7, MPV 7.3 L, Gran % 76.2 H, Lymphocytes % 13.0 L, Monocytes % 8.9, Eosinophils % 1.1, Basophils % 0.8, Absolute Granulocytes 8.4 H, Absolute Lymphocytes 1.4, Absolute Monocytes 1.0 H, Absolute Eosinophils 0.1, Absolute Basophils 0.1, PUBS MCHC 32.6 L Microbiology 09/14 2144 BLOOD: Blood Culture - RES 09/14 2129 BLOOD: Blood Culture - RES Diffential Diagnosis: Unspecified anxiety disorder vs anxiety disorder due to another medical condition Alcohol use disorder in sustained remssion Impression: 60-year-old male with known history of anxiety presents with increasing anxiety in the context of a COPD exacerbation. In the past he has failed to follow through with follow-up psychiatric care but states she is now ready to accept help. He would benefit from and is agreeable to outpatient psychiatry including optimization of his psychotropic regimen. Provisional Treatment Plan: 1. Please include the following and patient's discharge instructions: "Intake appointment at [facility] Out[facility] at [address] [place] [address] scheduled for September 30 at 8:45 AM with Leesa Garcia LCSW. Please bring your insurance card and ID. Call [phone] with any questions." 2. Patient would benefit from anxiolytic that will not interfere with his respiratory status or cognition. Recommend continue to take gabapentin when necessary if tolerated. May benefit from a decreased dose. Changes can be made on an outpatient basis. Thank you for including psychiatry in this case we are signing off. A total of 60 minutes was spent with the patient with more than 50% of the time spent in counseling and/or coordination of care.
--- NOTE | 2016-09-17 10:28 | PN- Pulmonary ---
ALAYNA MÉNDEZ,GABRIELLE 09/17/16 1020: Subjective HPI/Critical Care Issues: 60 YO man with history of COPD (on 2 L at home), noncompliant with CPAP, Graves disease s/p radiation with subsequent hypothyroidism, HTN, OA with chronic pain, anxiety presented complaining of several days of increased shortness of breath and brownish sputum production. He has been started on IV steroids along with azithromycin. This morning feels better, breathing at baseline, anxiety seems better controlled. Objective Current Medications: Current Medications Sig/Leon Start time Last Medication Dose Route Stop Time Status Admin Acetaminophen 650 MG Q6P PRN 09/15 0300 AC PO Albuterol Sulfate 3 ML BID 09/15 2200 AC 09/17 INH 0507 Apixaban 10 MG BID 09/16 1026 DC PO Azithromycin 500 MG DAILY 09/16 1000 AC 09/17 Sodium Chloride 250 ML IV 09/18 1059 0908 Budesonide/ 2 PUF BID 09/15 1000 AC 09/17 Formoterol Fumarate INH 0908 Diazepam 5 MG BID PRN 09/15 0730 AC 09/16 PO 1350 Enoxaparin Sodium 40 MG DAILY 09/15 1000 AC 09/17 SC 0908 Escitalopram Oxalate 20 MG DAILY 09/15 1000 AC 09/17 PO 0908 Guaifenesin 600 MG Q12 09/15 1000 AC 09/17 PO 0908 Ibuprofen 600 MG Q6P PRN 09/15 0300 AC PO Levothyroxine Sodium 0.15 MG DAILY AC 09/17 0700 AC 09/17 PO 0556 Levothyroxine Sodium 0.15 MG DAILY AC 09/15 0700 DC 09/16 PO 0524 Methylprednisolone 40 MG Q12 09/15 2200 AC 09/17 IV 09/20 2201 0908 Oxycodone HCl 15 MG Q4P PRN 09/15 0300 AC 09/17 PO 0909 Vital Signs & I&O Last 24 Hrs of Vitals and I&O: Vital Signs Date Time Temp Pulse Resp B/P B/P Pulse O2 O2 Flow FiO2 Mean Ox Delivery Rate 09/17 0800 94 Nasal 2.5L Cannula 09/17 0629 97.5 94 20 130/66 94 Nasal 2.5L Cannula 09/17 0508 92 Nasal 2.0L Cannula 09/17 0000 Nasal 2.0L Cannula 09/16 2205 98.4 108 20 144/70 93 Nasal 2.5L Cannula 09/16 1840 94 Nasal 2.0L Cannula 09/16 1600 Nasal 2.0L Cannula 09/16 1354 99.3 100 20 152/90 94 Nasal 2.0L Cannula Intake & Output 09/17 1600 09/17 0800 09/17 0000 Intake Total 240 700 Output Total Balance 240 700 Intake, Oral 240 700 Exam General Appearance: well developed/nourished, no apparent distress, alert, awake , comfortable Head: atraumatic, normal appearance Neck: normal inspection, supple Respiratory: normal breath sounds, quiet respiration Cardiovascular: regular rate/rhythm, normal peripheral pulses Abdomen: normal bowel sounds, soft Extremities: no edema Neurologic/Psychiatric: awake, alert, oriented x 3 Impression/Plan Impression/Plan Impression/Plan: 60-year-old male with a past medical history significant for COPD on 2 L at baseline, CAROLE noncompliant with CPAP, from home complaining of increased productive cough and increasing shortness of breath. Denies fevers, chills, imaging negative for acute infection. Appears to have an anxious component to symptoms. Recommendations: Continue oxygen supplementation keeping O2 >92% Change to po prednisone 40mg today Change to po azithromycin today Continue mucinex TRC/nebs Coninue symbicort Anxiety as per psychiatry recommendation DVTppx, lovenox Problem List: 1. COPD exacerbation [place] MD 09/17/16 1311: Impression/Plan Impression/Plan Recommendations: [place] M.D. have examined this patient, reviewed available EMR data, personally reviewed images, discussed with resident/PA/PLANT SPRAYER, discussed management plan with housestaff and nursing staff, discussed managment plan all of healthcare providers, discussed management plan with patient and/or family, agreed with resident/PA/PLANT SPRAYER. The past history and parts of the chart have been autopopulated. reduce steroids anxiolysis dc planning dvt prophylaxis at all times
[2016-09-17 14:30] VITALS: BP 160/80
[2016-09-17] MEDS ORDERED: BACITRACIN ZIN120 GM TOP (17:30)
[2016-09-17] MEDS ORDERED: PREDNISONE10 M2 PO (17:30)
[2016-09-17 22:47] VITALS: BP 150/70
[2016-09-18 07:18] VITALS: BP 136/80
--- NOTE | 2016-09-18 08:46 | PN- Att Addend ---
Attending Addendum Attending Brief Note Patient seen and examined. He does not want to go home today. He feels short of breath and very anxious. In addition he says his is in [place] and he has no ride. On exam he is afebrile, breathing at 18-22, he is on 2 L of oxygen , sat is pending, BP 136/80 He is awake, alert, oriented, speaking in full sentences. Mildly tremulous and visibly anxious lungs have decreased breath sounds with scattered wheezes, heart is S1-S2 regular, abdomen is obese He is a 60-year-old male with known COPD and chronic respiratory failure on 2 L of oxygen at baseline with a history of Graves and now hypothyroidism on thyroid replacement therapy and obstructive sleep apnea noncompliant with CPAP. He is here with a presumed COPD exacerbation and was switched to by mouth prednisone and by mouth azithromycin. As per pulmonary's recommendations , further tapering by 10 mg a day given his severe anxiety with the steroids. Anxiety appears to be the predominant component here and he spoke to the psych nurse practitioner yesterday but he feels that the gabapentin makes the anxiety worse and makes him hallucinate and he is requesting 5 tablets of Valium on discharge. For today will watch him on the by mouth steroids and by mouth antibiotics, check a stat as he says he is feeling short of breath and follow closely.
--- NOTE | 2016-09-18 11:15 | PN- Housestaff ---
See Addendum Subjective Follow-up For: COPD exacerbation Complaints: Shortness of breath Subjective: Mr. Thomas feels his shortness of breath is improved. He still has a cough and states that his sputum is now greenish. Review of Systems Constitutional: Denies: chills, fever, malaise. Cardiovascular: Denies: chest pain, palpitations, syncope. Respiratory: Reports: cough, sputum production, wheezing. Gastrointestinal: Denies: abdominal pain, constipation, diarrhea, nausea, vomiting. Genitourinary: Denies: dysuria, hematuria. Objective Last 24 Hrs of Vital Signs/I&O Vital Signs Date Time Temp Pulse Resp B/P B/P Pulse O2 O2 Flow FiO2 Mean Ox Delivery Rate 09/18 1830 94 Nasal 2.0L Cannula 09/18 1415 97.1 94 22 140/80 97 09/18 0902 98 Nasal 2.0L Cannula 09/18 0800 Nasal 2.5L Cannula 09/18 0718 97.8 76 16 136/80 95 Nasal 2.0L Cannula 09/18 0000 93 Nasal 2.5L Cannula 09/17 2247 97.8 92 18 150/70 93 Nasal Cannula 09/17 2057 93 Nasal 1.0L Cannula Intake & Output 09/18 1600 09/18 0800 09/18 0000 Intake Total 480 240 480 Output Total Balance 480 240 480 Intake, Oral 480 240 480 Number 0 1 Bowel Movements Patient 245 lb Weight Physical Exam General Appearance: Alert, Oriented X3, Cooperative, No Acute Distress Skin: No Rashes Skin Temp/Moisture Exam: Warm/Dry Sepsis Skin Exam (color): Normal for Ethnicity HEENT: Atraumatic, EOMI, Mucous Membr. moist/pink Neck: Supple, No JVD, No thryomegaly Lymphatic: Cervical nl Cardiovascular: Regular Rate, Normal S1, Normal S2, No Murmurs Lungs: Normal Air Movement, Mild scattered wheeze bilaterally Abdomen: Normal Bowel Sounds, Soft, No Tenderness, No Hepatospenomegaly Neurological: Normal Speech, Normal Tone Extremities: Bilateral pitting pedal edema up to knee Current Medications: Current Medications Sig/Leon Start time Last Medication Dose Route Stop Time Status Admin Acetaminophen 650 MG Q6P PRN 09/15 0300 AC PO Albuterol Sulfate 3 ML BID 09/15 2200 AC 09/18 INH 1829 Azithromycin 250 MG DAILY 09/18 1000 AC 09/18 PO 0947 Azithromycin 500 MG DAILY 09/16 1000 DC 09/17 Sodium Chloride 250 ML IV 09/18 1059 0908 Bacitracin 1 OBI BID 09/17 2200 AC 09/18 TOP 0947 Budesonide/ 2 PUF BID 09/15 1000 AC 09/18 Formoterol Fumarate INH 0947 Diazepam 5 MG BID PRN 09/15 0730 AC 09/18 PO 0203 Enoxaparin Sodium 40 MG DAILY 09/15 1000 AC 09/18 SC 0947 Escitalopram Oxalate 20 MG DAILY 09/15 1000 AC 09/18 PO 0947 Guaifenesin 600 MG Q12 09/15 1000 AC 09/18 PO 0947 Ibuprofen 600 MG Q6P PRN 09/15 0300 AC PO Levothyroxine Sodium 0.15 MG DAILY AC 09/17 0700 AC 09/18 PO 0512 Oxycodone HCl 15 MG Q4P PRN 09/15 0300 AC 09/18 PO 1535 Prednisone 30 MG ONCE ONE 09/19 0845 AC PO 09/19 0846 Prednisone 40 MG DAILY 09/18 1000 DC 09/18 PO 09/18 1001 0947 Assessment/Plan Assessment: 60-year-old male with past medical history significant for chronic obstructive pulmonary disease, dependent on 2 L of oxygen at home, obstructive sleep apnea not compliant with CPAP, osteoarthritis, Graves' disease S/P ablation currently hypothyroidism, chronic pain and anxiety presented with worsening of shortness of breath since 3 days associated with productive cough. Patient is admitted on general medicine floor for the management of following problems 1. COPD exacerbation - Inciting event unknown. No History of URTI or ill contacts ? Compliance vs Worseneing of disease. - Currently Afebrile - Hemodynamically stable - Last WBC count 9.8 - Continue oxygen by nasal canula to keep SPO2>92% - Continue symicort Inhaler 2 puffs inhaler BID - Taper Prednisone 30 mg daily tomorrow and reduce by 10 mg daily - Continue PO zithromax for COPD exacerbation - TRC Nebs as needed - Pulmonology Consult, Dr. Watts appreciated 2. History of anxiety Patient is currently in 5 mg twice a day of Valium when necessary Patient is full code Patient is on heart healthy diet Patient is on Lovenox for DVT prophylaxis Patient is on pain management Problem List: 1. COPD exacerbation 2. Anxiety Pain Ratin Pain Location: NONE Pain Goal: Remain pain free Pain Plan: Oxycodone Tomorrow's Labs & Rationales: Not needed DVT/Prophylaxis: pharmacological
--- NOTE | 2016-09-18 12:47 | PN- Pulmonary ---
Subjective HPI/Critical Care Issues: pt seen and examined continues to have anxiety accompanied by dyspnea overall feels better Objective Current Medications: Current Medications Sig/Leon Start time Last Medication Dose Route Stop Time Status Admin Acetaminophen 650 MG Q6P PRN 09/15 0300 AC PO Albuterol Sulfate 3 ML BID 09/15 2200 AC 09/18 INH 0858 Azithromycin 250 MG DAILY 09/18 1000 AC 09/18 PO 0947 Azithromycin 500 MG DAILY 09/16 1000 DC 09/17 Sodium Chloride 250 ML IV 09/18 1059 0908 Bacitracin 1 OBI BID 09/17 2200 AC 09/18 TOP 0947 Budesonide/ 2 PUF BID 09/15 1000 AC 09/18 Formoterol Fumarate INH 0947 Diazepam 5 MG BID PRN 09/15 0730 AC 09/18 PO 0203 Enoxaparin Sodium 40 MG DAILY 09/15 1000 AC 09/18 SC 0947 Escitalopram Oxalate 20 MG DAILY 09/15 1000 AC 09/18 PO 0947 Guaifenesin 600 MG Q12 09/15 1000 AC 09/18 PO 0947 Ibuprofen 600 MG Q6P PRN 09/15 0300 AC PO Levothyroxine Sodium 0.15 MG DAILY AC 09/17 0700 AC 09/18 PO 0512 Methylprednisolone 40 MG Q12 09/15 2200 DC 09/17 IV 09/20 2201 0908 Oxycodone HCl 15 MG Q4P PRN 09/15 0300 AC 09/18 PO 0948 Patient Medication 1 ED .STK-MED ONE 09/17 1402 [facility] [facility] 09/17 1403 Prednisone 30 MG ONCE ONE 09/19 0845 AC PO 09/19 0846 Prednisone 40 MG DAILY 09/18 1000 DC 09/18 PO 09/18 1001 0947 Vital Signs & I&O Last 24 Hrs of Vitals and I&O: Vital Signs Date Time Temp Pulse Resp B/P B/P Pulse O2 O2 Flow FiO2 Mean Ox Delivery Rate 09/18 0902 98 Nasal 2.0L Cannula 09/18 0800 Nasal 2.5L Cannula 09/18 0718 97.8 76 16 136/80 95 Nasal 2.0L Cannula 09/18 0000 93 Nasal 2.5L Cannula 09/17 2247 97.8 92 18 150/70 93 Nasal Cannula 09/17 2057 93 Nasal 1.0L Cannula 09/17 1600 Nasal 2.5L Cannula 09/17 1430 97.9 83 18 160/80 94 Nasal 2.5L Cannula Intake & Output 09/18 1600 09/18 0800 09/18 0000 Intake Total 240 480 Output Total Balance 240 480 Intake, Oral 240 480 Number 1 Bowel Movements Exam Other Physical Findings: gen awake and alert heent ncat cvs s1, s2 lungs rare rhonchi scattered abd soft bs+ ext without edema Impression/Plan Impression/Plan Impression/Plan: Impression 60 year old man * COPD exacerbation improving * anxiety * CAROLE - declines tx Plan -taper steroids -anxiolysis -outpt psych follow up -TRC/Nebs -f/u in office with myself -declines CAROLE tx due to inability to tolerate DVT prophylaxis at all times Okay for dc 09/19
[2016-09-18 14:15] VITALS: BP 140/80
--- NOTE | 2016-09-18 15:59 | Discharge Summary ---
Visit Information Visit Dates Admission Date: 09/14/16 Discharge Date: 09/19/16 Hospital Course Course Attending Physician: REBECCA REYEZ MD Primary Care Physician: SHANNON POWELL MD Consulting Request: Consulting Specialty: Pulmonary Disease Hospital Course: 60-year-old male with past medical history significant for chronic obstructive pulmonary disease, dependent on 2 L of oxygen at home, obstructive sleep apnea not compliant with CPAP, osteoarthritis, Graves' disease S/P ablation currently hypothyroidism, chronic pain and anxiety presented with worsening of shortness of breath since 3 days associated with productive cough. Vitals on admission patient Afebrile, mild tachycardia and tachypnea, blood pressure 132/79, saturating 92% on 2 L nasal cannula. On examination: He was alert oriented to time person and place, cooperative, lung examination showed mild respiratory distress, complete sentences without shortness of breath, neck supple, JVD normal, no lymphadenopathy, mucosa moist, no focal neurological deficit, pedal edema present, cardiac examination showed S1 and S2 with regular rhythm, Diffuse intermittent wheezing on lung examination. Benign abdominal and neurological examination. Labs on admission showed WBC 11.0, neutrophils 76% hemoglobin 13.2, hematocrit 40.5, sodium 131, chloride 87, bicarbonate 35 otherwise BMP, LFT, troponin unremarkable. CXR no acute cardiopulmonary changes. Patient was admitted on general medicine floor for the management of following problems COPD exacerbation Patient was initially started on IV steroids that were quickly tapered to by mouth. Patient also completed 5 days of azithromycin for anti-inflammatory effect. He is given total respiratory care along with inhalers. Patient's oxygen requirement was also is between 2-2.5 L. Pulmonology consult was also obtained. Patient has a vicious cycle of being started on steroids and that he feels more short of breath because of steroid treatment. Shortness of breath further exacerbates his COPD. Component of anxiety also plays a role into this. Obstructive sleep apnea noncompliant with CPAP Patient has past medical history significant for obstructive sleep apnea but is all is noncompliant with CPAP because of his inability to tolerate the machine. He was offered the treatment but declined it. History of anxiety Patient is past medical history significant for anxiety. Patient was given when necessary twice a day Valium during the hospitalization. Given patient's significant anxiety of psychiatry consult was also obtained that recommended outpatient follow-up with an appointment set up at [facility]. Patient was full code Patient was on heart healthy diet Patient was on Lovenox for DVT prophylaxis Patient was on pain management Allergies: Coded Allergies: No Known Allergies (11/06/15) Disposition Summary Disposition Principal Diagnosis: COPD exacerbation Shortness of breath Anxiety Additional Diagnosis: History of hypothyroidism History of obstructive sleep apnea Discharge Disposition: home or self care Discharge Instructions General Discharge Information Code Status: Full Code Patient's Diet: Heart healthy diet Patient's Activity: As tolerated Follow-Up Instructions/Appts: Follow up with PCP in a week after discharge Follow up with Registered Diet Technician after discharge Follow-up with appointment at [facility] at [address] [place] [address] scheduled for September 30 at 8:45 AM with Leesa Garcia LCSW. Medications at Discharge Discharge Medications: Continue taking these medications: Ibuprofen (Ibuprofen) 800 MG TABLET 1 Tablet ORAL as needed for PAIN Qty = 1 Instructions: Reason to Stop at ADM: DIFFERETN PAIN PATHWAY Comments: NOT GIVEN IN HOSPITAL Levothyroxine Sodium (Levoxyl) 150 MCG TABLET 1 Tablet ORAL DAILY Comments: Last Taken: 09/19/16 Time: 6AM Oxycodone HCl (Oxycodone HCl) 15 MG TABLET 1 Tablet ORAL Q4H Qty = 168 Comments: Last Taken: 09/19/16 Time: 2 PM Fluticasone/Vilanterol (Breo Ellipta 100-25 Mcg INH) 100 MCG-25 MCG/DOSE BLST.W.DEV 1 PUFF Inhale through mouth DAILY Qty = 60 Comments: Last Taken: 04/23/16 Time: 0930AM Escitalopram Oxalate (Lexapro) 20 MG TABLET 1 Tablet ORAL DAILY Comments: Last Taken: 09/19/16 Time: 10AM Start taking the following new medications: Bacitracin (Bacitracin Zinc) 500 UNIT/GRAM OINT...G. 1 Application On the skin TWICE DAILY Qty = 1 No Refills Comments: Last Taken: 09/19/16 Time: 10AM Prednisone (Prednisone) 10 MG TABLET 1 Tablet ORAL DAILY Qty = 6 No Refills Comments: 09/19/16 30 MG 09/20/16 20 MG 09/21/16 10 MG AND THEN STOP Last Taken: 09/19/16 Time: 10 AM Diazepam (Valium) 5 MG TABLET 1 Tablet ORAL 2 x Daily as needed as needed for Anxiety Qty = 5 No Refills Comments: Last Taken: 09/18/16 Time: 2PM Guaifenesin (Mucinex) 600 MG TAB.ER.12H 1 Tablet ORAL TWICE DAILY Qty = 10 No Refills Comments: Last Taken: 09/19/16 Time: 10AM Copies To: REBECCA REYEZ MD
[2016-09-18] MEDS ORDERED: VALIUM5 M2 PO (21:46)
[2016-09-18 22:39] VITALS: BP 130/80
[2016-09-19 06:24] VITALS: BP 148/80
[2016-09-19] MEDS ORDERED: MUCINEX600 M1 PO (08:11)
--- NOTE | 2016-09-19 08:22 | PN- Att Addend ---
Attending Addendum Attending Brief Note Patient seen and examined. He says overall he feels about the same. He is coughing up and bringing up globs up sputum. He appears to be in better spirits than yesterday. On exam he is afebrile, blood pressure is 130/70, breathing at 16-18, sat is 93 % on 2 L. He sitting up eating his breakfast able to talk in full sentences and not using accessory muscles, awake alert oriented, lungs decreased breath sounds at the bases but otherwise clear, heart is S1-S2 regular, abdomen is obese This is a 60-year-old with chronic respiratory failure on 2 L of oxygen at baseline here with a COPD exacerbation and severe anxiety. I spoke to Dr. Watts and he is stable to be discharged today. He has a quick prednisone taper off 10 mg a day. He complains of a lot of anxiety when he takes the prednisone so we are sending him out with 5 tablets of Valium. He has an outpatient COPD appointment, outpatient psychiatry appointment and his usual pulmonary appointment with Dr. Watts and I stressed compliance with all of them. He has completed his course of azithromycin for bronchitis associated with COPD.
--- NOTE | 2016-09-19 11:49 | PN- Pulmonary ---
Subjective HPI/Critical Care Issues: Patient seen and examined this morning. He appears to be returning to respiratory baseline and and is anticipating discharge today. Objective Current Medications: Current Medications Sig/Leon Start time Last Medication Dose Route Stop Time Status Admin Acetaminophen 650 MG Q6P PRN 09/15 0300 AC PO Albuterol Sulfate 3 ML BID 09/15 2200 AC 09/19 INH 1124 Azithromycin 250 MG DAILY 09/18 1000 AC 09/19 PO 0836 Bacitracin 1 OBI BID 09/17 2200 AC 09/19 TOP 0836 Budesonide/ 2 PUF BID 09/15 1000 AC 09/19 Formoterol Fumarate INH 0834 Diazepam 5 MG BID PRN 09/15 0730 AC 09/18 PO 0203 Enoxaparin Sodium 40 MG DAILY 09/15 1000 AC 09/19 SC 0836 Escitalopram Oxalate 20 MG DAILY 09/15 1000 AC 09/19 PO 0836 Guaifenesin 600 MG Q12 09/15 1000 AC 09/19 PO 0836 Ibuprofen 600 MG Q6P PRN 09/15 0300 AC PO Levothyroxine Sodium 0.15 MG DAILY AC 09/17 0700 AC 09/19 PO 0551 Oxycodone HCl 15 MG Q4P PRN 09/15 0300 AC 09/19 PO 0835 Prednisone 30 MG ONCE ONE 09/19 0845 DC 09/19 PO 09/19 0846 0836 Vital Signs & I&O Last 24 Hrs of Vitals and I&O: Vital Signs Date Time Temp Pulse Resp B/P B/P Pulse O2 O2 Flow FiO2 Mean Ox Delivery Rate 09/19 1128 97 Nasal 2.0L Cannula 09/19 0800 Nasal 2.5L Cannula 09/19 0624 98.0 93 20 148/80 95 Nasal Cannula 09/19 0000 Nasal 2.5L Cannula 09/18 2239 97.6 90 20 130/80 96 Nasal Cannula 09/18 1830 94 Nasal 2.0L Cannula 09/18 1415 97.1 94 22 140/80 97 Intake & Output 09/19 1600 09/19 0800 09/19 0000 Intake Total 400 480 480 Output Total Balance 400 480 480 Intake, Oral 400 480 480 Exam Other Physical Findings: gen awake and alert heent ncat cvs s1, s2 lungs rare rhonchi scattered abd soft bs+ ext without edema Impression/Plan Impression/Plan Impression/Plan: Impression 60 year old man * COPD exacerbation improving * anxiety * CAROLE - declines tx Plan -taper steroids -anxiolysis -outpt psych follow up -TRC/Nebs -f/u in office with myself -declines CAROLE tx due to inability to tolerate DVT prophylaxis at all times Okay for dc
[2016-09-19 15:03] VITALS: BP 140/70
== END 2016-09-19 17:15 | DRG 190 ==
LOC: ERH 19:34 → ERHI 22:32 → 2NA 22:32 → ENRESERV 23:50 → 2NA 09-15 00:11 → ENPENDDIS 09-19 08:50 → 2NA 09-19 17:15
PROVIDERS: Emergency Medicine; Preventive Medicine Public Health & General Preventive Medicine; ADMIT Internal Medicine
DX: J44.1 Chronic obstructive pulmonary disease with (acute) exacerbation (principal); J96.21 Acute and chronic respiratory failure with hypoxia; I50.9 Heart failure, unspecified; Z87.891 Personal history of nicotine dependence; E66.01 Morbid (severe) obesity due to excess calories; Z68.37 Body mass index [BMI] 37.0-37.9, adult; G47.33 Obstructive sleep apnea (adult) (pediatric); Z99.81 Dependence on supplemental oxygen; E78.5 Hyperlipidemia, unspecified; N40.0 Benign prostatic hyperplasia without lower urinary tract symptoms; F41.8 Other specified anxiety disorders; E03.9 Hypothyroidism, unspecified
CPT/HCPCS: 2NASP; ERO; 82436; 87040; 93005; 93010; 96374; 96375; J0456; J0696; J1650; J2920; J2930; J3360; J3490; J7040; J7512

== ENCOUNTER 2016-10-28 10:41 | Emergency (ER) | payer OTHER, MEDICARE ==
[~2016-10-28] VITALS: Ht 172.7 cm; Wt 117.9 kg
[~2016-10-28 10:41] MED LIST changes: +BACITRACIN ZIN120 GM TOP; +GABAPENTIN600 M1 PO; +LEXAPRO20 M1 PO; +MUCINEX600 M1 PO; +VALIUM5 M2 PO
--- NOTE | 2016-10-28 11:04 | ED DYSPNEA/ASTHMA COMPLAINT ---
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 122 Source: patient, family, old records Exam Limitations: no limitations Vital Signs & Intake/Output Vital Signs & Intake/Output Vital Signs Date Time Temp Pulse Resp B/P B/P Pulse O2 O2 Flow FiO2 Mean Ox Delivery Rate 10/28 1335 98.3 100 20 130/72 95 Nasal 4.0L Cannula 10/28 1131 94 Nasal 4.0L Cannula 10/28 1109 93 Nasal 3.0L Cannula 10/28 1057 97.9 118 20 142/80 89 Nasal 4.0L Cannula Allergies Coded Allergies: No Known Allergies (11/06/15) Reconcile Medications Alprazolam (Xanax) 0.5 MG TABLET 1 TAB PO BIDP PRN ANXIETY Escitalopram Oxalate (Lexapro) 20 MG TABLET 1 TAB PO DAILY MENTAL HEALTH ( Reported) Fluticasone/Vilanterol (Breo Ellipta 100-25 Mcg INH) 100 MCG-25 MCG/DOSE BLST.W.DEV 1 PUFF INH DAILY COPD (Reported) Levothyroxine Sodium (Levoxyl) 150 MCG TABLET 1 TAB PO DAILY THYROID ( Reported) Oxycodone HCl 15 MG TABLET 1 TAB PO Q4H PAIN (Reported) Triage Note: PT TO ED C/O 2 DAY HISTORY OF SOB. PT WEARS O2 AT BEDTIME. STATES HE HAD TO PUT HIMSELF ON O2 DURING THE DAY LATELY. PT HAD AN APPT WITH DR GAR THE OTHER DAY, BUT HE MISSED IT. O2 SATS 89% ON 4LNC. EKG DONE. PT DENIES C/P. PT TAKEN TO POD 3 VIA STRETCHER. Triage Nurses Notes Reviewed? yes HPI: Patient has COPD. Patient found his semi-responsive after narcotic overdose. Patient then began to feel short of breath. Patient denies any chest pain or palpitations. There are no fevers or chills. There is no coughing. Past History Travel History Traveled to [place] past 21 day No Medical History Any Pertinent Medical History? 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 FATHER (unknown). Hx Contributory? No Review of Systems Review of Systems Constitutional: Reports: no symptoms. EENTM: Reports: no symptoms. Respiratory: Reports: see HPI, short of breath, wheezing. Cardiovascular: Reports: no symptoms. GI: Reports: no symptoms. Genitourinary: Reports: no symptoms. Musculoskeletal: Reports: no symptoms. Skin: Reports: no symptoms. Neurological/Psychological: Reports: no symptoms. Hematologic/Endocrine: Reports: no symptoms. Immunologic/Allergic: Reports: no symptoms. All Other Systems: Reviewed and Negative Physical Exam Physical Exam General Appearance: well developed/nourished, alert, awake, anxious, mild distress Head: atraumatic Eyes: Bilateral: PERRL, EOMI. Ears, Nose, Throat: normal pharynx, normal ENT inspection, hearing grossly normal Neck: normal inspection, supple, full range of motion Respiratory: decreased breath sounds, wheezing Cardiovascular: regular rate/rhythm, normal peripheral pulses Gastrointestinal: normal bowel sounds, soft, non-tender Extremities: normal inspection, normal capillary refill, normal range of motion Neurologic/Psych: no motor/sensory deficits, awake, alert, oriented x 3, normal mood/affect Lymphatic: no anterior cervical pretty Core Measures ACS in differential dx? No Severe Sepsis Present: No Septic Shock Present: No Progress Differential Diagnosis: asthma, AMI, bronchitis, CHF, COPD, pulmonary embolism, pneumonia, pneumothorax Plan of Care: Orders Procedure Date/time Status Telemetry/Vpk Teacher 10/28 1105 Active TROPONIN LEVEL 10/28 1105 Complete COMPREHENSIVE METABOLIC PANEL 10/28 1105 Complete CBC WITHOUT DIFFERENTIAL 10/28 1105 Complete EKG 10/28 1045 Active Laboratory Tests 10/28/16 1155: Anion Gap 9, Estimated GFR > 60, BUN/Creatinine Ratio 17.5, Glucose 106 H, Calcium 8.7, Total Bilirubin 0.6, AST 22, ALT 29, Alkaline Phosphatase 99, Troponin I < 0.01, Total Protein 6.7, Albumin 4.0, Globulin 2.7, Albumin/ Globulin Ratio 1.5, CBC w Diff NO MAN DIFF REQ, RBC 4.32 L, MCV 91.1, MCH 29.5, RDW 14.0, MPV 7.7, Gran % 80.5 H, Lymphocytes % 8.4 L, Monocytes % 8.5, Eosinophils % 2.0, Basophils % 0.6, Absolute Granulocytes 8.7 H, Absolute Lymphocytes 0.9 L, Absolute Monocytes 0.9 H, Absolute Eosinophils 0.2, Absolute Basophils 0.1, PUBS MCHC 32.3 L CXR Impression: PATIENT: CATALINA DOUGLAS PRESENT AGE: 61 PATIENT ACCOUNT NO: [id number] : 53 LOCATION: [facility] ORDERING PHYSICIAN: FLAVIO DUCKWORTH MD SERVICE DATE: 10/28/16-1102 EXAM TYPE: RAD - XRY- PORTABLE CHEST XRAY EXAMINATION: XR PORTABLE CHEST CLINICAL INFORMATION: Chest pain COMPARISON: Chest x-ray of 09/14/2016 and multiple previous chest x-rays dated back to 09/28/2015. TECHNIQUE: Portable frontal view of the chest was obtained. FINDINGS: The lungs are moderately hypoexpanded. There is mild bibasilar atelectasis. No focal consolidation, significant pleural effusion, pulmonary edema or pneumothorax. The cardiomediastinal evaluation is somewhat limited however is unchanged. IMPRESSION: Low lung volumes. Bibasilar atelectasis. No acute pulmonary process. DICTATED BY: NERY GUERRIER MD DATE/TIME DICTATED:10/28/161136 CLINICAL PROGRAM MANAGER:COSMO DATE/TIME TRANSCRIBED:1136 CONFIDENTIAL, DO NOT COPY WITHOUT APPROPRIATE AUTHORIZATION. < Electronically signed in Other Vendor System> SIGNED BY: NERY GUERRIER MD [id number] Initial ED EKG: s tach with nsstt changes, no change from prioe ekg Prior EKG: unchanged Rhythm Strip: normal sinus rhythm Comments: PT IS FEELING A LITTLE BETTER. HE WANTS TO WAIT A BIT AND THEN SEE IF HE CAN GO HOME. Departure Departure Disposition: HOME OR SELF CARE Condition: Stable Clinical Impression Primary Impression: COPD exacerbation Secondary Impressions: Anxiety Referrals: SHANNON POWELL MD (PCP/Family) RONEL GAR MD Additional Instructions: FOLLOW UP WITH DR. GAR RETURN FOR ANY CONCERNS Departure Forms: Customer Survey General Discharge Information Prescriptions: Current Visit Scripts Alprazolam (Xanax) 1 TAB PO BIDP PRN ANXIETY #20 TAB Critical Care Note Critical Care Note Critical Care Time: non-applicable
--- NOTE | 2016-10-28 11:43 | RADIOLOGY REPORT ---
EXAMINATION: XR PORTABLE CHEST CLINICAL INFORMATION: Chest pain COMPARISON: Chest x-ray of 09/14/2016 and multiple previous chest x-rays dated back to 09/28/2015. TECHNIQUE: Portable frontal view of the chest was obtained. FINDINGS: The lungs are moderately hypoexpanded. There is mild bibasilar atelectasis. No focal consolidation, significant pleural effusion, pulmonary edema or pneumothorax. The cardiomediastinal evaluation is somewhat limited however is unchanged. IMPRESSION: Low lung volumes. Bibasilar atelectasis. No acute pulmonary process.
[2016-10-28 12:02] LABS: ABSOLUTE BASOPHIL COUNT 0.1 /CUMM (0.0-0.2); ABSOLUTE EOSINOPHIL COUNT 0.2 /CUMM (0.0-0.7); ABSOLUTE GRANULOCYTE CT 8.7 /CUMM (1.4-6.5); ABSOLUTE LYMPH COUNT 0.9 /CUMM (1.2-3.4); ABSOLUTE MONOCYTE COUNT 0.9 /CUMM (0.10-0.60); BASOPHIL % 0.6 % (0.0-2.0); GRANULOCYTE % 80.5 % (42.2-75.2); HEMATOCRIT 39.4 % (42-52); MEAN CORPUSCULAR HGB 29.5 PG (27.0-31.0); MEAN CORPUSCULAR HGB CONC 32.3 G/DL (33.0-37.0); MEAN CORPUSCULAR VOLUME 91.1 FL (80.0-94.0); MEAN PLATELET VOLUME 7.7 FL (7.4-10.4); PLATELET COUNT 223 /CUMM (130-400); RED BLOOD CELL CT 4.32 /CUMM (4.70-6.10); WHITE BLOOD CELL COUNT 10.9 /CUMM (4.8-10.8)
[2016-10-28 13:35] VITALS: BP 130/72
--- NOTE | 2016-10-28 14:38 | Cons- Pulmonary ---
General Information and HPI Consulting Request Date of Consult: 10/28/16 Requested By: Patient and Dr. Esparza. Reason for Consult: dyspnea Source of Information: patient Exam Limitations: no limitations History of Present Illness: Patient is a 61-year-old man who is known to me from the office. He presented today after his has been having medical issues with possible drug misuse. This caused the patient has significant anxiety and he presented to the emergency room department with her complaining of the mentioned above. He is also suffering from COPD and requires oxygen, inhalers, and respiratory treatments. He feels that it is likely his anxiety this admission due to his 's acute illness. He appears to be stable from the respiratory perspective without any fevers without any significant changes in his respiratory baseline which includes dyspnea on exertion and occasional cough with phlegm. Chest x- rays without any acute pulmonary process. He does not have leukocytosis that a significant 10.9. He is afebrile. Allergies/Medications Allergies: Coded Allergies: No Known Allergies (11/06/15) Home Med List: Escitalopram Oxalate (Lexapro) 20 MG TABLET 1 TAB PO DAILY MENTAL HEALTH ( Reported) Fluticasone/Vilanterol (Breo Ellipta 100-25 Mcg INH) 100 MCG-25 MCG/DOSE BLST.W.DEV 1 PUFF INH DAILY COPD (Reported) Levothyroxine Sodium (Levoxyl) 150 MCG TABLET 1 TAB PO DAILY THYROID ( Reported) Oxycodone HCl 15 MG TABLET 1 TAB PO Q4H PAIN (Reported) Current Medications: Current Medications Sig/Leon Start time Last Medication Dose Route Stop Time Status Admin Albuterol Sulfate 3 ML ONCE ONE 10/28 1115 DC 10/28 INH 10/28 1116 1131 Alprazolam 0.5 MG ONCE ONE 10/28 1330 DC 10/28 PO 10/28 1331 1323 Alprazolam 0 .STK-MED ONE 10/28 1329 DC PO Azithromycin 500 MG ONCE ONE 10/28 1115 10/28 Sodium Chloride 250 ML IV 10/28 1214 1208 Ceftriaxone Sodium 0 .STK-MED ONE 10/28 1200 DC .ROUTE Ceftriaxone Sodium 1,000 MG ONCE ONE 10/28 1115 DC 10/28 IV 10/28 1116 1208 Ipratropium [place] 2.5 ML ONCE ONE 10/28 1115 DC 10/28 INH 10/28 1116 1130 Methylprednisolone 0 .STK-MED ONE 10/28 1159 DC .ROUTE Methylprednisolone 125 MG ONCE ONE 10/28 1115 DC 10/28 IV 10/28 1116 1208 Review of Systems Comments 18 point review of systems performed. Pertinent positive and negative findings are in the HPI, otherwise negative. 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 FATHER (unknown). Psychosocial History Who Do You Live With? spouse, child Services at Home: None Primary Language: Czech ETOH Use: denies use Illicit Drug Use: denies illicit drug use Functional Ability ADLs Independent: dressing, eating, toileting, bathing. Ambulation: independent IADLs Independent: finances, telephone, transportation, medication admin. Exam & Diagnostic Data Last 24 Hrs of Vital Signs/I&O Vital Signs Date Time Temp Pulse Resp B/P B/P Pulse O2 O2 Flow FiO2 Mean Ox Delivery Rate 10/28 1335 98.3 100 20 130/72 95 Nasal 4.0L Cannula 10/28 1131 94 Nasal 4.0L Cannula 10/28 1109 93 Nasal 3.0L Cannula 10/28 1057 97.9 118 20 142/80 89 Nasal 4.0L Cannula Intake & Output 10/28 1600 10/28 0800 10/28 0000 Intake Total 250 Output Total Balance 250 Intake, IV 250 Patient 260 lb Weight Weight Reported by Patient Measurement Method Physical Exam Other Physical Findings: Gen - alert and awake HEENT - NCAT CVS - S1, S2, no murmurs, rubs or gallops Lungs - rare rhonchi and wheezing chronically Abdomen - obese, soft, non-tender, bs+ Ext - no edema, no cyanosis Last 48 Hrs of Labs/Miko: Laboratory Tests 10/28/16 1155: Anion Gap 9, Estimated GFR > 60, BUN/Creatinine Ratio 17.5, Glucose 106 H, Calcium 8.7, Total Bilirubin 0.6, AST 22, ALT 29, Alkaline Phosphatase 99, Troponin I < 0.01, Total Protein 6.7, Albumin 4.0, Globulin 2.7, Albumin/ Globulin Ratio 1.5, CBC w Diff NO MAN DIFF REQ, RBC 4.32 L, MCV 91.1, MCH 29.5, RDW 14.0, MPV 7.7, Gran % 80.5 H, Lymphocytes % 8.4 L, Monocytes % 8.5, Eosinophils % 2.0, Basophils % 0.6, Absolute Granulocytes 8.7 H, Absolute Lymphocytes 0.9 L, Absolute Monocytes 0.9 H, Absolute Eosinophils 0.2, Absolute Basophils 0.1, PUBS MCHC 32.3 L Assessment/Plan Impression/Plan: Impression Patient is a 61-year-old man who is known to me from the office. He presented today after his has been having medical issues with possible drug misuse. This caused the patient has significant anxiety and he presented to the emergency room department with her complaining of the mentioned above. He is also suffering from COPD and requires oxygen, inhalers, and respiratory treatments. He feels that it is likely his anxiety this admission due to his 's acute illness. He appears to be stable from the respiratory perspective without any fevers without any significant changes in his respiratory baseline which includes dyspnea on exertion and occasional cough with phlegm. Chest x- rays without any acute pulmonary process. He does not have leukocytosis that a significant 10.9. He is afebrile. Plan -stable for dc from pulmonary perspective -he is encouraged to reschedule his appointment with myself -he is to return to ED if any changes and/or call our office -cont home respiratory regimen Consult Acknowledgment - Thank you for your consult request. - Thank you for your consult request.
[2016-10-28] MEDS ORDERED: XANAX0.5 M1 PO (15:11)
== END 2016-10-28 15:21 ==
LOC: ERH 10:41
PROVIDERS: Emergency Medicine
DX: J44.1 Chronic obstructive pulmonary disease with (acute) exacerbation (principal); F41.9 Anxiety disorder, unspecified; Z87.891 Personal history of nicotine dependence
CPT/HCPCS: 1263; 93005; 93010; 96374; 96375; J0456; J0696; J2930; J7040